=== PATIENT | female | born 1945 | race Caucasian/White ===

== ENCOUNTER 2016-09-02 18:53 | Emergency (ER) | payer BC ==
[~2016-09-02 18:53] MED LIST: CALC-393 PO; CHOL400T5 PO; COEN400C5 PO; FLUT0.15 NAE; FURO40TA3 PO; GABA-113 PO; METO-452 PO; MONT1TAB5 PO; MULT-884 PO; NSNN50 NAE; OMEG10007 PO; POTA1TAB97 PO; PXL/10 PO; SIMV10TA2 PO; TRIA1SPR4 NAE
[2016-09-02 19:00] VITALS: TEMP 36.3; Ht 172.7 cm
[2016-09-02] MEDS ORDERED: SODIUM CHLORIDE 0.9% 500ML 500 ML IV STA (20:03)
[2016-09-02] MEDS ORDERED: TOLT4CAP PO (20:41)
[2016-09-02 21:39] LABS: BASO % 0.3 %; BASO ABS # 0.02 K/uL (0-0.2); COMPLETE YES; EOS % 5.8 %; HEMATOCRIT 31.1 % (37-47); IG% 0.9 %; LYMPH % 31.5 %; LYMPH ABS # 2.17 K/uL (1.2-3.4); MEAN CELL VOLUME 92.8 fL (80-100); MEAN CORPUSCULAR HEMOGLOBIN 31.9 pg (25-34); MEAN CORPUSCULAR HGB CONC 34.4 g/dl (32-36); MEAN PLATELET VOLUME 9.3 fL (7.4-10.4); MONO % 9.9 %; NEUT % 51.6 %; PLATELET COUNT 297 K/uL (130-400); RED BLOOD COUNT 3.35 M/uL (4.2-5.4); WHITE BLOOD COUNT 6.88 K/uL (4.8-10.8)
[2016-09-02 21:55] LABS: BLOOD UREA NITROGEN 13 mg/dl (7-18); BUN/CREATININE RATIO 23.9 (10-20); CALCIUM 8.4 mg/dl (8.5-10.1); CARBON DIOXIDE 23 mmol/L (21-32); CHLORIDE 105 mmol/L (98-107); CREATININE 0.54 mg/dl (0.60-1.20); GLUCOSE 93 mg/dl (70-99); SODIUM 138 mmol/L (136-145)
[2016-09-02 22:05] VITALS: BP 157/94
--- NOTE | 2016-09-02 22:15 | DIAGNOSTIC IMAGING REPORT ---
RENAL ULTRASOUND HISTORY: deca urine output - stent in RIGHT distal ureter s/p dist ureter COMPARISON: None. FINDINGS: Right kidney: Maximum dimension 11.5 cm. Slight fullness of the collecting system. A right ureteral stent is identified. Normal corticomedullary differentiation and cortical thickness. Left kidney: No evidence for hydronephrosis. Maximum dimension 11.9 cm. Normal corticomedullary differentiation and cortical thickness. Bladder: No bladder wall thickening. The bilateral ureteral jets were identified. IMPRESSION: Mild fullness right renal collecting system and right ureter. Right ureteral stent appearing to be located appropriately within the right ureter. Normal left kidney Electronically signed by: Samir Gama M.D. 09/02/2016 10:13 PM
--- NOTE | 2016-09-02 22:46 | EMERGENCY ROOM VISIT NOTE ---
History First contact with patient: 19:09 Chief Complaint: CATHETER REPLACEMENT Stated Complaint: TEMPLE CATH NOT WORKING History of Present Illness The patient is a 70 year old female who presents to the Emergency Department by private vehicle with her for evaluation of her issue with her Temple catheter. 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 She had surgery to remove multiple tumors which was performed at [facility] one week ago. As the surgery was proceeding, they noticed a tumor near the distal ureter at the junction of the bladder. The portion of the ureter was removed and a stent was placed. The patient was at [facility] for approximately one week prior to discharge. She will has a Temple catheter in place which is to be removed next week on her follow-up visit. She has noticed some mild RIGHT-sided ureteral spasm which she reports has been next to nothing after taking her prescribed medications. She reports no fevers or chills. She denies any worsening abdominal pain, nausea, vomiting, fevers, chills, headaches , chest pain, palpitations. Today she noticed a decreased amount of urinary output and also noticed that she had urinated some around her catheter today as well. She is uncertain of her by mouth intake at this point. She is questioning if her catheter may be displaced. She denies any pain in the vaginal area. She denies any pain near the catheter site. Review of Systems A complete 10-point Review of Systems was discussed with the patient, with pertinent positives and negatives listed in the History of Present Illness. All remaining Review of Systems questions can be considered negative unless otherwise specified. Past Medical/Surgical History Medical Problems: (1) Hypertension (2) LBBB (left bundle branch block) (3) Leiomyosarcoma (4) Syncope Family History Cancer Heart disease Hypertension Social History Smoking Status: Never Smoker Smokeless Tobacco Use: No Marital Status: Housing Status: lives with significant other Current/Historical Medications Scheduled Calcium Carbonate (Calcium), 1 TAB PO QAM Cholecalciferol (Vitamin D), 1 TAB PO QAM Coenzyme Q10 (Ubidecarenone) (Coq10), 1 CAP PO QAM Fish Oil ([place]-3), 1 CAP PO QAM Furosemide (Lasix), 60 MG PO QAM Gabapentin (Neurontin), 300 MG PO BID Metoprolol Succinate (Toprol Xl), 50 MG PO QPM Mometasone Furoate (Nasal) (Nasonex), 1 SPRAY JELENA DAILY Multiple Vitamin (Multi Vitamin Daily), 1 TAB PO QAM Paroxetine (Paroxetine HCl), 10 MG PO QPM Potassium Chloride (K-Tab), 30 MEQ PO QAM Simvastatin (Zocor), 10 MG PO QPM Tolterodine Tartrate (Detrol La), 4 MG PO DAILY Scheduled PRN Fluticasone Propionate (Nasal) (Flonase Allergy Relief), 1 SPRAY JELENA DAILY PRN for Nasal Congestion Triamcinolone Acetonide (Nasal (Nasacort Allergy 24Hr), 1 DOSE JELENA DAILY PRN for PRN Allergies Coded Allergies: [place] (Verified Allergy, Intermediate, HIVES, 09/02/16) Poison Zoey Extract/Poison [place] Extra (Verified Allergy, Intermediate, HIVES , 09/02/16) Sulfa Antibiotics (Verified Allergy, Intermediate, HIVES, 09/02/16) Milk (Verified Adverse Reaction, Mild, GI UPSET, 09/02/16) Physical Exam Vital Signs Date Time Temp Pulse Resp B/P Pulse Ox O2 Delivery O2 Flow Rate FiO2 09/02/16 22:52 74 18 97 Room Air 09/02/16 22:05 88 14 157/94 98 Room Air 09/02/16 19:00 36.3 104 17 145/77 99 Room Air Pain Rating (0-10): 0 Physical Exam VITAL SIGNS - Vital signs and nursing notes were reviewed. GENERAL - 70-year-old female appearing her stated age who is in no acute distress. Communicates well with provider and answers questions appropriately. LUNGS - Chest wall symmetric without accessory muscle use, intercostals retractions, or central cyanosis. Normal vesicular breath sounds CTA B/L. No wheezes, rales, or rhonchi appreciated. CARDIAC - RRR with S1/S2. No murmur, rubs, or gallops appreciated. ABDOMEN - Abdominal contour obese and without pulsations or visible masses. Negative [place]'s or Lara Chavarria's Signs. Well-healing surgical incision site appreciated midline BS normoactive all four quadrants. No tenderness to palpation appreciated throughout. No guarding. No Rebound Tenderness. No palpable masses, hepatosplenomegaly, or ascites noted. PSYCH - A&Ox3 and cooperates fully with examiner. Pt is very pleasant and interacts well with examiner. Medical Decision & Procedures ER Provider Diagnostic Interpretation: Radiological imaging and reports were reviewed by myself. Radiologist's Interpretation as follows: RENAL ULTRASOUND HISTORY: deca urine output - stent in RIGHT distal ureter s/p dist ureter COMPARISON: None. FINDINGS: Right kidney: Maximum dimension 11.5 cm. Slight fullness of the collecting system. A right ureteral stent is identified. Normal corticomedullary differentiation and cortical thickness. Left kidney: No evidence for hydronephrosis. Maximum dimension 11.9 cm. Normal corticomedullary differentiation and cortical thickness. Bladder: No bladder wall thickening. The bilateral ureteral jets were identified. IMPRESSION: Mild fullness right renal collecting system and right ureter. Right ureteral stent appearing to be located appropriately within the right ureter. Normal left kidney Laboratory Results 09/02/16 21:23 Red Blood Count 3.35, Mean Corpuscular Volume 92.8, Mean Corpuscular Hemoglobin 31.9, Mean Corpuscular Hemoglobin Concent 34.4, Mean Platelet Volume 9.3, Neutrophils (%) (Auto) 51.6, Lymphocytes (%) (Auto) 31.5, Monocytes (%) (Auto) 9.9, Eosinophils (%) (Auto) 5.8, Basophils (%) (Auto) 0.3, Neutrophils # (Auto) 3.55, Lymphocytes # (Auto) 2.17, Monocytes # (Auto) 0.68, Eosinophils # (Auto) 0.40, Basophils # (Auto) 0.02 09/02/16 21:23 Test 09/02/16 21:23 White Blood Count 6.88 K/uL (4.8-10.8) Red Blood Count 3.35 M/uL (4.2-5.4) Hemoglobin 10.7 g/dL (12.0-16.0) Hematocrit 31.1 % (37-47) Mean Corpuscular Volume 92.8 fL (80-100) Mean Corpuscular Hemoglobin 31.9 pg (25-34) Mean Corpuscular Hemoglobin Concent 34.4 g/dl (32-36) Platelet Count 297 K/uL (130-400) Mean Platelet Volume 9.3 fL (7.4-10.4) Neutrophils (%) (Auto) 51.6 % Lymphocytes (%) (Auto) 31.5 % Monocytes (%) (Auto) 9.9 % Eosinophils (%) (Auto) 5.8 % Basophils (%) (Auto) 0.3 % Neutrophils # (Auto) 3.55 K/uL (1.4-6.5) Lymphocytes # (Auto) 2.17 K/uL (1.2-3.4) Monocytes # (Auto) 0.68 K/uL (0.11-0.59) Eosinophils # (Auto) 0.40 K/uL (0-0.5) Basophils # (Auto) 0.02 K/uL (0-0.2) RDW Standard Deviation 44.4 fL (36.4-46.3) RDW Coefficient of Variation 13.3 % (11.5-14.5) Immature Granulocyte % (Auto) 0.9 % Immature Granulocyte # (Auto) 0.06 K/uL (0.00-0.02) Anion Gap 10.0 mmol/L (3-11) Estimated GFR () 109.3 Estimated GFR (Non- 94.3 BUN/Creatinine Ratio 23.9 (10-20) Calcium Level 8.4 mg/dl (8.5-10.1) ED Course Patient was seen and evaluated by myself. On initial presentation, nursing staff did deflate the catheter balloon and insert slightly. There is no urinary output. Her bladder scan demonstrated no urine. I had a lengthy discussion with them discussing further intervention. Labs were drawn, they were unable to obtain an IV state. retroperitoneal ultrasound was obtained. Laboratory results demonstrate no acute leukocytosis, significant anemia, or bandemia. The patient has no significant electrolyte abnormalities. Creatinine is well within normal limits. Ultrasound results above. Laboratory results and imaging studies were reviewed with the patient who acknowledges understanding. Case was discussed with my attending physician who independently evaluated the patient and agrees with the diagnostic approach and treatment plan. The patient had a moderate amount of urine output while in the emergency department when she began to drink. Her urine is clear and there are no clots noted. Patient will be followed closely with home health. She will return for any changing or worsening symptoms. Patient discharged home in good condition. Medical Decision Given the patient's presentation and stated complaint, I did elect to perform the above-mentioned workup. The patient presents today with urinary issues with her catheter. She has no fever. She has no leukocytosis. Her exam is otherwise unremarkable. The patient clinically looks very well after having her surgery. Initially, I did proceed conservatively and attempt to change position of the catheter and see if this facilitated urine output. Interestingly, she had no urine in her bladder. This is likely the major culprit of the patient's symptoms. Regardless, the patient recently went through major surgery and because of this, labs were obtained and ultrasound was obtained of the retroperitoneal area. She has no leukocytosis concerning of significant infection. She is mildly anemic, but this is to be expected postoperatively. Her imaging studies are not impressive. She had a moderate amount of clear urine output in the emergency department after she began to drink. The patient wishes no further intervention at this time. She will follow closely with her surgeons as discussed. She will certainly return in the event of any changing or worsening symptoms. Patient discharged home afebrile and in good condition. In the evaluation and treatment of this patient, the following differential diagnoses were considered: Kidney Stone, STI, Bladder Cancer, Amongst Others. Impression Primary Impression: Decreased urine output Additional Impression: Complication of catheter Departure Information Dispostion Home / Self-Care Condition GOOD Referrals RV. Arias MD (PCP) Patient Instructions A Signature Page, [facility] Additional Instructions Continue to follow with your specialists from today's visit. Return for any changing or worsening symptoms.
[2016-09-02 22:52] VITALS: PULSE 74; O2SAT 97
--- NOTE | 2016-09-03 00:55 | EMERGENCY ROOM VISIT NOTE ---
ED Visit Note First contact with patient: 19:09 I have personally evaluated this patient examined her and reviewed the pertinent labs and data. I have discussed the case with Nikhil Polanco, the physician catering assistant and agree with the plan. Please refer to the PA note This patient had recent ureter surgery at [facility]. I was concerned about decreased urinary output her catheter is now working fine. She did receive some IV fluids.. She has normal kidney function she has nothing to suggest infection. Her incisions are healing well .her ultrasound was unremarkable .she feels good and would like to go home. I think that it is reasonable to discharge her at this point.: She was encouraged to return if fever or chills, worsening of symptoms or new problems or concerns.
== END 2016-09-02 22:52 | disposition home or self-care (01) ==
LOC: C.EDB 18:54 → C.EDD 22:52
DX: Z46.6 Encounter for fitting and adjustment of urinary device (principal); Z43.6 Encounter for attention to other artificial openings of urinary tract; R39.198 Other difficulties with micturition; I10 Essential (primary) hypertension; Z79.899 Other long term (current) drug therapy

== ENCOUNTER → 2016-10-16 | Outpatient (CLI) | payer BC ==
[~2016-10-16] MED LIST changes: -METO-452 PO; +METO1TAB66 PO; -MONT1TAB5 PO; +TOLT4CAP PO
[2016-10-16 10:01] LABS: URINE APPEARANCE CLEAR (CLEAR); URINE BILIRUBIN NEG (NEG); URINE COLOR YELLOW; URINE EPITHELIAL CELL AUTO 20-30 /lpf (0-5); URINE NITRITE NEG (NEG); URINE SPECIFIC GRAVITY 1.004 (1.000-1.030); UROBILINOGEN NEG (NEG)
[2016-10-16 10:04] LABS: ALT/SGPT 13 U/L (12-78); BLOOD UREA NITROGEN 9 mg/dl (7-18); BUN/CREATININE RATIO 16.8 (10-20); CALCIUM 8.6 mg/dl (8.5-10.1); CARBON DIOXIDE 25 mmol/L (21-32); CHLORIDE 100 mmol/L (98-107); CHOLESTEROL 182 mg/dl (0-200); CREATININE 0.53 mg/dl (0.60-1.20); GLUCOSE 89 mg/dl (70-99); MANUAL MICROSCOPIC REQUIRED? NO; REVIEW REQ? NO; SODIUM 134 mmol/L (136-145); TRIGLYCERIDES 72 mg/dl (0-150); VERY LOW DENSITY LIPOPROT CALC 14 mg/dl
[2016-10-16 10:06] LABS: ALB/GLOB RATIO 0.9 (0.9-2); ALKALINE PHOSPHATASE 66 U/L (45-117); AST/SGOT 15 U/L (15-37); CHOLESTEROL/HDL RATIO 2.3; HDL CHOLESTEROL 78 mg/dl; LDL CHOLESTEROL CALCULATED 90 mg/dl
--- NOTE | 2016-10-20 08:43 | CODING QUERY MEDICAL NECESSITY ---
SUPPORTING DIAGNOSIS NEEDED Dr. Alberts, A supporting diagnosis is required for the test/procedure performed on this patient in order for us to be reimbursed by the patient's insurance. Please provide a supporting diagnosis for the following test/procedure listed below next to the test name along with your signature. *If there is no additional diagnosis for this patient that would support the following test/procedure please document that below next to the test/procedure. Test(s)/Procedure(s) that require a supporting diagnosis: * ([id number]) B12 VITAMIN LEVEL DIAGNOSIS: DATE OF SERVICE: 10/16/16 Provider Signature: Date: Thank you Reji Dai [facility] Information Management Once completed, please kindly fax back to [phone] For questions please call [phone]
== END | disposition home or self-care (01) ==
LOC: C.LAB1850 07:32
PROVIDERS: ATTEND Internal Medicine
DX: E78.00 Pure hypercholesterolemia, unspecified (principal); E55.9 Vitamin D deficiency, unspecified; M79.89 Other specified soft tissue disorders; G62.0 Drug-induced polyneuropathy; N39.0 Urinary tract infection, site not specified; M85.80 Other specified disorders of bone density and structure, unspecified site; R00.0 Tachycardia, unspecified; T45.1X5A Adverse effect of antineoplastic and immunosuppressive drugs, initial encounter

== ENCOUNTER → 2016-10-23 | Outpatient (CLI) | payer BC ==
[2016-10-23 15:41] LABS: URINE APPEARANCE CLOUDY (CLEAR); URINE BILIRUBIN NEG (NEG); URINE COLOR YELLOW; URINE EPITHELIAL CELL AUTO 0-5 /lpf (0-5); URINE NITRITE NEG (NEG); URINE PH 6.5 (4.5-7.5); URINE SPECIFIC GRAVITY 1.008 (1.000-1.030); UROBILINOGEN NEG (NEG)
[2016-10-23 15:45] LABS: MANUAL MICROSCOPIC REQUIRED? NO; REVIEW REQ? NO
== END | disposition home or self-care (01) ==
LOC: C.LAB1850 14:39
PROVIDERS: ATTEND Internal Medicine
DX: N39.0 Urinary tract infection, site not specified (principal)

== ENCOUNTER → 2017-02-04 | Outpatient (CLI) | payer BC ==
[~2017-02-04] MED LIST changes: +METO-452 PO; -METO1TAB66 PO
== END | disposition home or self-care (01) ==
LOC: C.LABSPEC 17:49
PROVIDERS: ATTEND Physician Assistant
DX: N89.8 Other specified noninflammatory disorders of vagina (principal)

== ENCOUNTER → 2017-04-19 | Outpatient (CLI) | payer BC ==
[~2017-04-19] MED LIST changes: -METO-452 PO; +METO1TAB66 PO
--- NOTE | 2017-04-20 07:57 | MAMMOGRAPHY REPORT ---
BILATERAL DIGITAL SCREENING MAMMOGRAM WITH CAD: 04/19/2017 CLINICAL HISTORY: Routine screening. Patient has no complaints. TECHNIQUE: Bilateral CC and MLO views were obtained. Current study was also evaluated with a Compute r Aided Detection (CAD) system. COMPARISON: Comparison is made to exams dated: 04/07/2016 mammogram, 04/02/2014 mammogram, 05/06/2010 mamm ogram - [facility], 05/02/2009, 04/27/2008, and 04/26/2007. BREAST COMPOSITION: The tissue of both breasts is almost entirely fatty. FINDINGS: No suspicious mass, architectural distortion or cluster of microcalcifications is seen. IMPRESSION: ACR BI-RADS CATEGORY 1: NEGATIVE There is no mammographic evidence of malignancy. A 1 year screening mammogram is recommended. The pa tient will receive written notification of the results. Approximately 10% of breast cancers are not detected with mammography. A negative mammographic report should not delay biopsy if a clinically suggestive mass is present. Daiana Snow M.D. ay/:04/19/2017 15:23:54 Vacuum Tester Cans: Robina Suarez RT(R)(M)(BD), [facility] letter sent: Normal 1/2 BI-RADS Code: ACR BI-RADS Category 1: Negative
== END | disposition home or self-care (01) ==
LOC: C.MAMM 14:58
PROVIDERS: ATTEND Internal Medicine
DX: Z12.31 Encounter for screening mammogram for malignant neoplasm of breast (principal)

== ENCOUNTER → 2017-07-26 | Outpatient (CLI) | payer BC ==
[~2017-07-26] MED LIST changes: +METO-452 PO; -METO1TAB66 PO
--- NOTE | 2017-07-26 16:21 | DIAGNOSTIC IMAGING REPORT ---
LUMBAR SPINE 5 VIEWS HISTORY: LOW BACK Pain, lumbar SPINAL STENOSIS COMPARISON: PET CT 08/10/2016. FINDINGS: There is a new moderate compression fracture at L5 which demonstrates 50% loss of height. This demonstrates slight increased sclerosis and favors a subacute to chronic fracture. The remaining vertebral body helps are maintained. Mild disc space narrowing at L3-L4 and L4-L5. Mild facet degenerative changes seen within the lumbar spine. The sacrum appears intact. No subluxation. Mild dextroscoliosis. Surgical clips within the pelvis. IMPRESSION: 1. A new moderate compression fracture at L5 which demonstrates 50% loss of height. No associated retropulsion. This is to the age indeterminate but favors a subacute to chronic fracture. Given the patient's history of malignancy a pathologic fracture cannot be excluded. 2. Mild degenerative changes within the lumbar spine. 3. Mild dextroscoliosis. Electronically signed by: Armani Mcrae M.D. 07/26/2017 4:19 PM Dictated Date/Time: 07/26/2017 4:16 PM
== END | disposition home or self-care (01) ==
LOC: C.RAD1850 15:22
PROVIDERS: ATTEND Internal Medicine
DX: M54.5 Low back pain (principal); M48.061 Spinal stenosis, lumbar region without neurogenic claudication

== ENCOUNTER 2018-01-04 14:25 | Emergency (ER) | payer BC ==
[~2018-01-04] VITALS: Ht 175.3 cm; Wt 81.6 kg
[2018-01-04 14:30] VITALS: TEMP 36.8; Ht 175.3 cm; Wt 81.6 kg
[2018-01-04] MEDS ORDERED: BUPIVACAINE 0.5 % 5 MG/1 ML MPF 30ML VIAL INFIL STA (15:08)
[2018-01-04] MEDS ORDERED: LIDOCAINE 1% BUFFERED INJ 5 ML VIAL INFIL STA (15:08)
[2018-01-04] MEDS ORDERED: DIPHTHERIA/TETANUS/PERTUSSIS 0.5 ML SYR/VIAL IM. ONE (15:15)
--- NOTE | 2018-01-04 15:51 | DIAGNOSTIC IMAGING REPORT ---
L FINGER(S) MIN 2 VIEWS ROUTINE HISTORY: 72 years-old Female left index finger laceration acute pain of the left third finger with laceration COMPARISON: None available TECHNIQUE: 3 views of the left third finger FINDINGS: The bones appear mildly demineralized. Mild to moderate degenerative changes are noted throughout the metacarpophalangeal and interphalangeal joints. No acute fracture, dislocation or opaque foreign body. Soft tissue defect of the distal third digit suggest laceration with mild soft tissue swelling. IMPRESSION: Laceration of the distal third digit without acute fracture or opaque foreign body. The above report was generated using voice recognition software. It may contain grammatical, syntax or spelling errors. Electronically signed by: Paul Sim M.D. 01/04/2018 3:50 PM Dictated Date/Time: 01/04/2018 3:48 PM
--- NOTE | 2018-01-04 16:15 | EMERGENCY ROOM VISIT NOTE ---
ED Visit Note First contact with patient: 14:43 CHIEF COMPLAINT: Finger laceration HISTORY OF PRESENT ILLNESS: This 72-year-old female patient presents to the emergency department, ambulatory, approximately 45 minutes after cutting the left ring finger while using pruning linda to trim her lilacs. The patient sliced through the finger with the linda, causing a partial nail laceration as well. The bleeding has not stopped. Denies weakness or numbness of the finger. The patient has full range of motion of the fingers. The patient rates the pain as sharp and 6/10. The patient denies any other injuries. The patient's tetanus shot is not up to date. REVIEW OF SYSTEMS: A 6 system review of systems was completed with positives and pertinent negatives listed in the HPI. ALLERGIES: Sulfa MEDICATIONS: Nasonex, gabapentin, Toprol, Zocor, vitamin D, fish oil, calcium, Flonase, Lotrisone, amitriptyline, singulair PMH: Cancer, heart disease SOCIAL HISTORY: Patient lives locally with family. She denies drug, alcohol or tobacco use. PHYSICAL EXAM: Vital Signs: Reviewed Nurse's notes, vital signs stable. GENERAL : This is a 72-year-old female, in no acute distress, well developed, well nourished. SKIN: There is a 2.2 cm long laceration on the anterior aspect of the left ring finger which extends around the lateral aspect of the finger and through the distal aspects of the fingernail. The edges gape apart with traction. There is no foreign material in the wound and it looks clean. There is significant bleeding. No deep structures such as tendons, bones, or significant blood vessels are seen in the base of the wound. Extension and flexion of the finger is full and strong. Full range of motion of the wrist and other fingers. Capillary refill less than 2 seconds. Normal sensation to light and sharp touch. RADIOLOGY: L FINGER(S) MIN 2 VIEWS ROUTINE HISTORY: 72 years-old Female left index finger laceration acute pain of the left third finger with laceration COMPARISON: None available TECHNIQUE: 3 views of the left third finger FINDINGS: The bones appear mildly demineralized. Mild to moderate degenerative changes are noted throughout the metacarpophalangeal and interphalangeal joints. No acute fracture, dislocation or opaque foreign body. Soft tissue defect of the distal third digit suggest laceration with mild soft tissue swelling. IMPRESSION: Laceration of the distal third digit without acute fracture or opaque foreign body. The above report was generated using voice recognition software. It may contain grammatical, syntax or spelling errors. Electronically signed by: Paul Sim M.D. 01/04/2018 3:50 PM Dictated Date/Time: 01/04/2018 3:48 PM EMERGENCY DEPARTMENT COURSE: I examined the patient. X-ray performed to rule out fracture and was reviewed by myself and radiologist as above. Verbal consent was obtained to perform the procedure. The procedure was performed under my direct supervision and with the agreement of the patient, by the physician mechanic's assistant student. Using sterile technique the wound was cleansed with Betadine. 6 ml of 1% buffered lidocaine next with 0.5% bupivacaine was used to perform a digital block to anesthetize the patient. The area was sterilely draped. Once the patient was anesthetized, the wound was copiously irrigated under pressure with sterile saline. The wound was explored and there were no deep structures injured. The injured portion of the fingernail was removed to expose the nailbed laceration. The laceration was repaired using 6 simple interrupted 5-0 nylon sutures and 1 simple interrupted 5-0 Vicryl suture. The patient tolerated the procedure well. Hemostasis was achieved. The area was cleaned with sterile saline and dressed with bacitracin ointment and bandage. The patient was given a tetanus booster. She did initially request antibiotics for infection prophylaxis due to her history of cancer, however, after speaking with Dr. Mack she decided against antibiotics. The patient was discharged home in good condition. I attest that I have personally reviewed the patient's current medication list. Blood Pressure Screening: Patient was found to have a slightly elevated blood pressure due to circumstances. I do not believe that the patient requires hypertension monitoring. Differential diagnosis includes laceration, contusion, fracture, sprain/strain, tendon or ligament injury, neurovascular compromise, foreign body, assault, and others DIAGNOSIS: Finger laceration through the nail The chart was completed utilizing [employer] voice recognition software. Grammatical errors, random word insertions, pronoun errors, and incomplete sentences are an occasional consequence of this system due to software limitations, ambient noise, and hardware issues. Any formal questions or concerns about the content, text, or information contained within the body of this dictation should be directly addressed to the provider for clarification. Problem List Medical Problems: (1) Hypertension Status: Chronic (2) LBBB (left bundle branch block) Status: Chronic (3) Leiomyosarcoma Status: Chronic Current/Historical Medications Scheduled Calcium Carbonate (Calcium), 1 TAB PO QAM Cholecalciferol (Vitamin D), 1 TAB PO QAM Coenzyme Q10 (Ubidecarenone) (Coq10), 1 CAP PO QAM Fish Oil ([place]-3), 1 CAP PO QAM Furosemide (Lasix), 60 MG PO QAM Gabapentin (Neurontin), 300 MG PO BID Metoprolol Succinate (Toprol Xl), 50 MG PO QPM Mometasone Furoate (Nasal) (Nasonex), 1 SPRAY JELENA DAILY Multiple Vitamin (Multi Vitamin Daily), 1 TAB PO QAM Paroxetine (Paroxetine HCl), 10 MG PO QPM Potassium Chloride (K-Tab), 30 MEQ PO QAM Simvastatin (Zocor), 10 MG PO QPM Tolterodine Tartrate (Detrol La), 4 MG PO DAILY Scheduled PRN Fluticasone Propionate (Nasal) (Flonase Allergy Relief), 1 SPRAY JELENA DAILY PRN for Nasal Congestion Oxycodone Ir (Roxicodone Ir), 1 TAB PO Q4H PRN for Pain Triamcinolone Acetonide (Nasal (Nasacort Allergy 24Hr), 1 DOSE JELENA DAILY PRN for PRN Allergies Coded Allergies: León (Verified Allergy, Intermediate, HIVES, 09/02/16) Poison Zoey Extract/Poison Muir Extra (Verified Allergy, Intermediate, HIVES , 09/02/16) Sulfa Antibiotics (Verified Allergy, Intermediate, HIVES, 09/02/16) Milk (Verified Adverse Reaction, Mild, GI UPSET, 09/02/16) Vital Signs Date Time Temp Pulse Resp B/P (MAP) Pulse Ox O2 Delivery O2 Flow Rate FiO2 01/04/18 16:38 79 16 165/95 100 01/04/18 14:30 36.8 100 18 158/97 96 Room Air Medications Administered Medications (Trade) Dose Ordered Sig/Radha Route Start Time Stop Time Status Last Admin Dose Admin Diphtheria/ Pertussis/Tetanus Vacc (Adacel Inj) 0.5 ml ONCE ONCE IM. 01/04/18 15:15 01/04/18 15:16 DC 01/04/18 15:26 0.5 ML Departure Information Impression Primary Impression: Laceration of finger Additional Impression: Need for tetanus booster Dispostion Home / Self-Care Condition GOOD Prescriptions Oxycodone Ir (Roxicodone Ir) 5 Mg Tab 1 TAB PO Q4H Y for Pain, #15 TAB For Initial Treatment Prov: Shayy Castillo PA-C 01/04/18 Referrals RV. Arias MD (PCP) Patient Instructions ED Immunization Tetanus and FU, ED Laceration Hand, [facility] Additional Instructions You have received 7 total sutures on your left ring finger. These sutures are NOT dissolvable and WILL need to be removed by a health care provider in 10-12 days. You can return to the Emergency Department or contact your Primary Care Provider to have the sutures removed. One suture is dissolvable and will not need to be removed. This is over the nailbed. Proper wound care is essential for adequate wound healing and infection prevention. You can shower and clean the wound with soap and water. Do not scour over the wound, pat dry with a towel. Do not submerse the wound (i.e. bathe or dish wash) until the sutures have been removed. You can use an antibiotic ointment with a dressing over the wound for the next 3-4 days. After this time you may leave the wound dry and open to the air. If crust develops over the wound you can use a Q-tip to apply a 1:1 peroxide:water solution to clean the wound. Look for signs of infection of the wound including: increased pain, swelling, foul discharge, streaking, or increased temperature. If any of these are noticed you should return to the Emergency Department for further assessment and treatment. As with any laceration you may have received nerve damage to the surrounding tissues. This damage may or may not be permanent. You should keep the area covered with sunscreen for the first 6 months to 1 year when at risk for exposure to help minimize scarring. You can also use scar reducing creams or Vitamin E oil to help minimize scarring. For pain control, you can use the following [id number] medicines (if >12 yo): Ibuprofen(Motrin, Advil) may be used for fever or pain. Use 600mg every six hours as needed. Take with food. Avoid using more than 2400mg in a 24 hour period. Do not use 2400mg per day for more than three consecutive days without physician direction. Prolonged inappropriate use can lead to stomach upset or ulcers. (AND/OR) Acetaminophen(Tylenol) may be used for fever or pain. Use 1000mg every six hours as needed. Avoid using more than 3000mg in a 24 hour period. Return to the emergency department if your symptoms worsen despite treatment course outlined above. Problem Qualifiers Primary Impression: Laceration of finger Encounter type: initial encounter Finger: ring finger Damage to nail status : with damage Foreign body presence: without foreign body Laterality: left Qualified Codes: S61.315A - Laceration without foreign body of left ring finger with damage to nail, initial encounter
[2018-01-04] MEDS ORDERED: OXYC1TAB3 PO (16:30)
--- NOTE | 2018-01-04 16:34 | EMERGENCY ROOM VISIT NOTE ---
ED Visit Note First contact with patient: 14:43 Staff note: I have reviewed the Patients chart and have discussed this case with my PA. I generally agree with the ED note and findings.
[2018-01-04 16:38] VITALS: BP 165/95; PULSE 79; O2SAT 100
== END 2018-01-04 16:51 | disposition home or self-care (01) ==
LOC: C.EDB 14:27 → C.EDD 16:51
DX: S61.315A Laceration without foreign body of left ring finger with damage to nail, initial encounter (principal); W45.8XXA Other foreign body or object entering through skin, initial encounter; Y93.H2 Activity, gardening and landscaping; Z23 Encounter for immunization; Z85.89 Personal history of malignant neoplasm of other organs and systems; I10 Essential (primary) hypertension; Z91.018 Allergy to other foods; Z91.048 Other nonmedicinal substance allergy status; Z88.2 Allergy status to sulfonamides; Z91.011 Allergy to milk products

== ENCOUNTER → 2018-04-21 | Outpatient (CLI) | payer BC ==
[~2018-04-21] MED LIST changes: +OXYC-90 PO
--- NOTE | 2018-04-21 15:07 | MAMMOGRAPHY REPORT ---
BILATERAL DIGITAL SCREENING MAMMOGRAM TOMOSYNTHESIS WITH CAD: 04/21/2018 CLINICAL HISTORY: Routine screening. Patient has no complaints. TECHNIQUE: Breast tomosynthesis in addition to standard 2D mammography was performed. Current study w as also evaluated with a Computer Aided Detection (CAD) system. COMPARISON: Comparison is made to exams dated: 04/19/2017 mammogram, 04/07/2016 mammogram, 04/02/2014 amber mogram, 05/06/2010 mammogram - [facility], 05/02/2009, and 05/02/2008. BREAST COMPOSITION: The tissue of both breasts is almost entirely fatty. FINDINGS: No suspicious masses, calcifications, or areas of architectural distortion are noted in either breast . There has been no significant interval change compared to prior exams. IMPRESSION: ACR BI-RADS CATEGORY 1: NEGATIVE There is no mammographic evidence of malignancy. A 1 year screening mammogram is recommended.( 019) The patient will receive written notification of the results. Some breast cancers are not detected with mammography. A negative mammographic report should not jewel y biopsy if a clinically suggestive mass is present. Radha Bardales M.D. ah/:04/21/2018 12:05:29 Conservation Enforcement Officer: RT Jose(Durga)(M)(BD), [facility] letter sent: Normal 1/2 BI-RADS Code: ACR BI-RADS Category 1: Negative
== END | disposition home or self-care (01) ==
LOC: C.MAMM 10:51
PROVIDERS: ATTEND Internal Medicine
DX: Z12.31 Encounter for screening mammogram for malignant neoplasm of breast (principal)

== ENCOUNTER 2020-08-26 14:21 | Inpatient (IN) ==
[2020-08-26] MEDS ORDERED: OXYMETAZOLINE 0.05% 30 ML BTL NAE ONE (15:46)
[2020-08-26] MEDS ORDERED: OXYMETAZOLINE 0.05% 30 ML BTL ONE (15:48)
[2020-08-26] MEDS ORDERED: SODIUM CHLORIDE 0.9% 1000ML 500 ML IV ONE ×2 (16:02→17:04)
[2020-08-26 16:17] LABS: Hemoglobin 9.8 g/dL (12.0-16.0); Mean Corpuscular Hemoglobin 30.3 pg (25-34); Mean Corpuscular Hgb Conc 33.8 g/dL (32-36); Mean Corpuscular Volume 89.8 fL (80-100); RDW Coefficient of Variation 19.4 % (11.5-14.5); RDW Standard Deviation 62.9 fL (36.4-46.3); Red Blood Count 3.23 M/uL (4.2-5.4); White Blood Count 2.62 K/uL (4.8-10.8)
--- NOTE | 2020-08-26 16:22 | Emergency Department Note ---
Impression & Plan Hypoxia, Epistaxis, CHF (congestive heart failure), SOB (shortness of breath), Thrombocytopenia ED Provider Note NAME: MARIA DE JESUS DUTTA AGE: 74 SEX: F : 1945 ARRIVES VIA: Walk-In INFORMANT: [Patient] ED PROVIDER(S): [Ciro Chris MD] CHIEF COMPLAINT: Epistaxis HISTORY OF PRESENT ILLNESS: The patient is a 74-year-old female who presents with 24 hours of right-sided epistaxis. The bleeding has been intermittent and she has been having a hard time controlling the bleeding even with Afrin. The patient is on chemotherapy for sarcoma. She states that the chemotherapeutic agent does cause low platelets and she has, in the past, received platelet transfusions. The patient states that a week ago or so she had a little bit of bleeding from her nose but it stopped spontaneously. This time, she cannot get it to stop. She has had some blood down the back of her throat. She has been weak but she states this is from the chemo. She is not on any blood thinners. There have been no Covid exposures, no cough or congestion. No increased shortness of breath. No vomiting or diarrhea. REVIEW OF SYSTEMS: See HPI for pertinent positives and negatives. A total of ten systems were reviewed and were otherwise negative. PMHx/PSHx: See Below SOCIAL HISTORY: See Below. PHYSICAL EXAM: GENERAL: Patient is in no acute distress. HEENT: The patient has a clot in her right naris. There is some older blood in the left nare from previous bleeding. There is some older clots adherent to the back of the throat but no active bleeding. Mucous members are moist. NECK: No stridor, no adenopathy, no meningismus, trachea is midline. LUNGS: Clear to auscultation bilaterally, no wheeze, no rhonchi, breath sounds equal. HEART: 2/6 systolic murmur, irregular rhythm, mildly tachycardic. ABDOMEN: Soft, nontender, bowel sounds positive, no hernias, no peritonitis. EXTREMITIES: No cyanosis or edema, full range of motion of all the joints without pain or difficulty, no signs for acute trauma. NEUROLOGIC: Oriented x 3, no acute motor or sensory deficits, no focal weakness. SKIN: No rash, no jaundice, no diaphoresis. DIFFERENTIAL DIAGNOSIS: Reactive airway disease, pneumonia, pneumothorax, COPD, CHF, MD, dysrhythmia, coagulopathy, anemia, thrombocytopenia, infections, cardiac ischemia, pulmonary embolism, musculoskeletal, gastrointestinal, as well as other pathologies. EMERGENCY DEPARTMENT COURSE/PROCEDURES: ECG: EKG was tachycardia. The ECG shows a poor baseline but I suspect there is a sinus tachycardia with PACs. There is an incomplete left bundle branch block. There is mild ST elevation in the anterior leads consistent with the left bundle. The QTc is 497. There is a potential old inferior infarct. There is a potential old anterior infarct. Compared to an ECG from 22 April 2020, the potential old inferior infarct is now noted. Repeat ECG: Indication was tachycardia. This ECG shows a sinus tachycardia with PACs. There is an incomplete left bundle branch block. 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 No PVCs. The QTc is 510. There is some subtle anterior ST elevation consistent with the left bundle branch block. This EKG looks similar to the previous ECG from earlier today. Repeat EKG: Indication was shortness of breath. The patient appears to have sinus tachycardia with a rate of 120. There is ST elevation across the anterior leads. There was some T wave inversion and ST depression laterally. The QTc was 497. There was what appears to be an old anterior and old inferior infarct. Compared to the ECG from earlier today, the ST elevation was more prominent and concerning for acute MD. Continuous Cardiac Monitoring: An order was placed for continuous cardiac monitoring. The monitor shows a rate of 107 with sinus tachycardia. Critical Care Note: I have personally spent 58 minutes of critical care time in the direct management of this patient. This includes bedside care, interpretation of diagnostic studies, and testing, discussion with consultants, patient, and family members, and other required patient management activities. This 58 minutes is in excess of all separately billable procedures. MEDICAL DECISION MAKING: There is a lower white count and hemoglobin, these values are both baseline for the patient. Platelet count is low at 73, this is a lower than baseline value for her. No coagulopathy. Potassium slightly low at 3.4, no kidney failure. No worrisome liver enzyme elevation. Covid testing returned negative. Chest x- ray shows some chronic change from her underlying disease. She appeared to be in pulmonary edema. There was no pneumothorax. ECG initially was difficult to interpret because of a poor baseline but I suspect there was a sinus tachycardia. Repeat EKG shows a sinus tachycardia more clearly. The third EKG performed when she worsened shows increased ST elevation in the anterior leads with some lateral depression, the EKG was concerning for an acute MD. Initial troponin testing returned negative. The patient presented with epistaxis. She was doing well except for a mild tachycardia. She had packing performed here by ENT. Shortly after the packing was placed, she suddenly became short of breath and was noted to be hypoxic. I was called emergently to the room. Patient was tachycardic, quite short of breath and hypoxic. On my exam, I was concerned for flash pulmonary edema. An ECG was done emergently with her complaints, this suggested the possibility of an anterior acute MD. Chest x-ray done emergently showed CHF. The patient was aggressively managed. She was given Nitropaste, 2 inches. She was given 40 mg of IV Lasix, a total of 10 mg of IV Lopressor, she was given O2 supplementation. She eventually was given a dose of IV potassium to supplement the slightly lower potassium value. Patient was given IV Zofran for some n ausea. She was given a DuoNeb. I did speak with the supervisor electric automation tester for heart alert. He saw the patient at bedside. As the patient was improving medically, the decision was made not to take the patient emergently to the cardiac catheterization lab. I did speak with the patient and her . I spoke with the over the phone. The patient understands the findings and concerns. She is going to be hospitalized. In short, the patient presented for epistaxis. She was having nasal packing performed and suddenly became short of breath and became hypoxic. She developed flash pulmonary edema, she will require an admission. She is improving with our treatment. I spoke with the on-call hospitalist, I did speak with case management. Past Med/Surg History Medical History Cancer Herpes zoster Hypercholesteremia Left-sided chest wall pain Lumbar spinal stenosis Lung nodule Peripheral neuropathy due to chemotherapy Syncope Surgical History (Updated 07/17/20 @ 08:40 by Shannan Barnes RN) H/O colonoscopy H/O dilation and curettage H/O hysterectomy with oophorectomy H/O oophorectomy H/O oral surgery H/O: hysterectomy History of back surgery History of cataract surgery History of shoulder surgery History of sinus surgery Hx of appendectomy Hx of tonsillectomy Status post cryoablation Buttocks Family History Mother Lymphoma Father Alzheimer disease Unknown Uterine cancer Grandfather (Maternal) Myocardial infarction Denies family history of Ovarian cancer Prostate cancer Breast cancer Colorectal cancer Social History Smoking Status: Never smoker Hx Alcohol Use: Yes Alcohol type: wine Hx Substance Use: Yes (medical marijuana) Hearing Ability: Use of Hearing Aid marital status: Current Living Situation: Spouse current occupational status: retired Feels Safe at Home: Yes Dental Care, Regularly: Yes Physical Activity Frequency: 1-2 Times per Week Physical Activity Frequency Comment: swimming and walking Seatbelt Use: always Sunscreen Use: Yes (sometimes) Allergies Allergies Allergy/AdvReac Type Severity Reaction Status Date / Time selina Allergy Intermediate HIVES Verified 07/17/20 09:01 Sulfa (Sulfonamide Allergy Intermediate HIVES Verified 07/17/20 09:01 Antibiotics) milk AdvReac Mild GI UPSET Verified 07/17/20 09:01 Poison Zoey Extract/Poison Allergy Intermediate HIVES Uncoded 07/17/20 09:01 [place] Extra Home Meds Home Medications Medication Instructions Recorded Confirmed calcium carbonate 600 mg calcium 600 mg PO .BID/3XW tab 06/27/18 08/26/20 (1,500 mg) tablet multivitamin 1 tab PO DAILY 06/27/18 07/17/20 omega-3 fatty acids 1,000 mg 1,000 mg PO DAILY 06/27/18 07/17/20 capsule cyclosporine 0.05 % eye drops in a 1 drops OP Q12H 06/30/18 07/17/20 dropperette denosumab 60 mg/mL subcutaneous 60 mg SQ Q6MO ml 06/14/19 08/26/20 syringe cholecalciferol (vitamin D3) 50 50 mcg PO DAILY 06/14/20 08/26/20 mcg (2,000 unit) capsule Magic Swizzle 10 ml PO Q4H PRN 07/17/20 gabapentin 400 mg PO TID 07/17/20 08/26/20 loratadine [Claritin] 10 mg PO BID 07/17/20 08/26/20 ondansetron 8 mg PO Q12H PRN 07/17/20 07/17/20 oxycodone-acetaminophen [Percocet] 1 tab PO Q6H PRN 07/17/20 07/17/20 polyethylene glycol 3350 [Miralax] 17 g PO DAILY PRN 07/17/20 07/17/20 Previous Rx's Medication Instructions Recorded sertraline 50 mg tablet 50 mg PO DAILY #90 tab 01/11/20 metoprolol succinate 50 mg 50 mg PO DAILY #90 tab 05/27/20 tablet,extended release 24 hr simvastatin 10 mg tablet 20 mg PO QPM #180 tab 05/27/20 tramadol 50 mg tablet 50 mg PO BID PRN #60 tab 06/06/20 naproxen 500 mg tablet 500 mg PO DAILY PRN #30 tab 06/24/20 mometasone 50 mcg/actuation nasal 1 spray INTRANASAL DAILY PRN #17 g 07/31/20 spray Results & Data (ED) Vital Signs Vital Signs - 24 hr 08/26/20 14:24 08/26/20 16:30 08/26/20 17:00 Temperature 37.1 C Temperature Source Oral Pulse Rate 123 H 105 H 104 H Pulse Rate [Right Finger] Pulse Rate from SpO2 Sensor 105 H 102 H Respiratory Rate 18 22 20 Respiratory Effort / Characteristics Blood Pressure 171/82 H 149/95 H 165/87 H Blood Pressure Mean 111 109 115 Pulse Oximetry 99 97 95 Oxygen Delivery Method Room Air Oxygen Flow Rate Sepsis Recent Fever Within 48 Hours No Sepsis New/Unexplained Change in Mental Status N/A Sepsis Action Taken by Nursing No Action Required 08/26/20 17:31 08/26/20 17:59 08/26/20 18:00 Temperature Temperature Source Pulse Rate 117 H 118 H Pulse Rate [Right Finger] Pulse Rate from SpO2 Sensor 115 H 117 H Respiratory Rate 19 36 H Respiratory Effort / Characteristics Blood Pressure 180/104 H 171/124 H Blood Pressure Mean 121 154 Pulse Oximetry 100 74 L 96 Oxygen Delivery Method Oxymask Room Air Oxymask Oxygen Flow Rate 10 10 Sepsis Recent Fever Within 48 Hours Sepsis New/Unexplained Change in Mental Status Sepsis Action Taken by Nursing 08/26/20 18:05 08/26/20 18:11 08/26/20 18:15 Temperature Temperature Source Pulse Rate 130 H 123 H Pulse Rate [Right Finger] 118 H Pulse Rate from SpO2 Sensor 131 H 127 H Respiratory Rate 30 H 29 H 28 H Respiratory Effort / Characteristics Spontaneous Short of Breath Blood Pressure 203/126 H 187/110 H Blood Pressure Mean 147 124 Pulse Oximetry 98 97 99 Oxygen Delivery Method Oxymask Oxymask Oxymask Oxygen Flow Rate 9 10 10 Sepsis Recent Fever Within 48 Hours Sepsis New/Unexplained Change in Mental Status Sepsis Action Taken by Nursing 08/26/20 18:19 08/26/20 18:21 08/26/20 18:30 Temperature Temperature Source Pulse Rate 108 H 132 H 107 H Pulse Rate [Right Finger] Pulse Rate from SpO2 Sensor 108 H Respiratory Rate 23 20 Respiratory Effort / Characteristics Blood Pressure 187/94 H 203/126 H 153/112 H Blood Pressure Mean 124 123 Pulse Oximetry 99 Oxygen Delivery Method Oxymask Oxygen Flow Rate 10 Sepsis Recent Fever Within 48 Hours Sepsis New/Unexplained Change in Mental Status Sepsis Action Taken by Residential Medications Current Medication List: was personally reviewed by me Laboratory Data Attestation: I reviewed the patient's lab results. Result diagrams: 08/26/20 16:02 08/26/20 16:02 Lab Results 08/26/20 08/26/20 08/26/20 Range/Units 16:02 16:02 16:02 WBC 2.62 L (4.8-10.8) K/uL RBC 3.23 L (4.2-5.4) M/uL Hgb 9.8 L (12.0-16.0) g/dL Hct 29.0 L (37-47) % MCV 89.8 (80-100) fL MCH 30.3 (25-34) pg MCHC 33.8 (32-36) g/dL RDW Std Deviation 62.9 H (36.4-46.3) fL RDW Coeff of Zhao 19.4 H (11.5-14.5) % Plt Count 73 L (130-400) K/uL MPV 9.8 (7.4-10.4) fL Platelet Estimate Decreased L (Normal) PT 12.0 (9.0-12.0) Seconds INR 1.1 (0.9-1.1) APTT 26.2 (21.0-31.0) Seconds PTT Ratio 0.9 Sodium 131 L (136-145) mmol/L Potassium 3.4 L (3.5-5.1) mmol/L Chloride 99 (98-107) mmol/L Carbon Dioxide 23 (21-32) mmol/L Anion Gap 9.0 (3-11) BUN 14 (7-18) mg/dl Creatinine 0.49 L (0.6-1.2) mg/dl Est Cr Clr Drug Dosing 108.0 ml/min Est GFR ( Amer) 109.7 Est GFR (Non-Af Amer) 94.6 BUN/Creatinine Ratio 29.6 H (10-20) Glucose 102 H (70-99) mg/dl Calcium 8.4 L (8.5-10.1) mg/dl Magnesium 2.0 (1.8-2.4) mg/dl Total Bilirubin 0.5 (0.2-1) mg/dl AST 28 (15-37) U/L ALT 10 L (12-78) U/L Alkaline Phosphatase 78 (45-117) U/L Troponin I 0.023 (0-0.045) ng/ml Total Protein 6.7 (6.4-8.2) gm/dl Albumin 2.9 L (3.4-5.0) gm/dl Globulin 3.8 (2.5-4.0) gm/dl Albumin/Globulin Ratio 0.8 L (0.9-2) COVID-19 Eval Order SARS-CoV-2, RNA, NAAT (NEGATIVE) 08/26/20 08/26/20 Range/Units 18:19 18:19 WBC (4.8-10.8) K/uL RBC (4.2-5.4) M/uL Hgb (12.0-16.0) g/dL Hct (37-47) % MCV (80-100) fL MCH (25-34) pg MCHC (32-36) g/dL RDW Std Deviation (36.4-46.3) fL RDW Coeff of Zhao (11.5-14.5) % Plt Count (130-400) K/uL MPV (7.4-10.4) fL Platelet Estimate (Normal) PT (9.0-12.0) Seconds INR (0.9-1.1) APTT (21.0-31.0) Seconds PTT Ratio Sodium (136-145) mmol/L Potassium (3.5-5.1) mmol/L Chloride (98-107) mmol/L Carbon Dioxide (21-32) mmol/L Anion Gap (3-11) BUN (7-18) mg/dl Creatinine (0.6-1.2) mg/dl Est Cr Clr Drug Dosing ml/min Est GFR ( Amer) Est GFR (Non-Af Amer) BUN/Creatinine Ratio (10-20) Glucose (70-99) mg/dl Calcium (8.5-10.1) mg/dl Magnesium (1.8-2.4) mg/dl Total Bilirubin (0.2-1) mg/dl AST (15-37) U/L ALT (12-78) U/L Alkaline Phosphatase (45-117) U/L Troponin I (0-0.045) ng/ml Total Protein (6.4-8.2) gm/dl Albumin (3.4-5.0) gm/dl Globulin (2.5-4.0) gm/dl Albumin/Globulin Ratio (0.9-2) COVID-19 Eval Order Covid19 IDNow [facility] SARS-CoV-2, RNA, NAAT NEGATIVE (NEGATIVE) Administered Medications Discontinued Medications Albuterol (Albut/Ipratrop 3mg/0.5mg Neb 3 Ml Vial) 3 ml NEB NOW STA Stop: 08/26/20 17:58 Last Admin: 08/26/20 18:05 Dose: 3 ml Documented by: [id number] Sodium Chloride (Nss 1000ml) 500 mls @ 999 mls/hr IV .Q31M ONE Stop: 08/26/20 16:32 Last Infusion: 08/26/20 17:00 Dose: 0 mls/hr Documented by: [id number] Admin: 08/26/20 16:30 Dose: 999 mls/hr Documented by: [id number] Sodium Chloride (Nss 1000ml) 500 mls @ 999 mls/hr IV .Q31M ONE Stop: 08/26/20 17:34 Last Infusion: 08/26/20 17:44 Dose: 0 mls/hr Documented by: [id number] Admin: 08/26/20 17:05 Dose: 999 mls/hr Documented by: [id number] Metoprolol Tartrate (Metoprolol Tartrate 1 Mg/Ml Vial) 5 mg IV NOW STA Stop: 08/26/20 18:14 Last Admin: 08/26/20 18:22 Dose: Not Given Documented by: [id number] Metoprolol Tartrate (Metoprolol Tartrate 1 Mg/Ml Vial) Confirm Administered Dose 5 mg IV .STK-MED ONE Stop: 08/26/20 18:16 Last Admin: 08/26/20 18:21 Dose: 5 mg Documented by: [id number] Nitroglycerin (Nitroglycerin 2% Ointment 30gm Tube) Confirm Administered Dose 18 inch .ROUTE .STK-MED ONE Stop: 08/26/20 17:58 Last Admin: 08/26/20 18:11 Dose: Not Given Documented by: [id number] Nitroglycerin (Nitroglycerin 2% Ointment 30gm Tube) 2 inch EXT NOW STA Stop: 08/26/20 17:58 Last Admin: 08/26/20 18:11 Dose: 2 inch Documented by: [id number] Ondansetron HCl (Ondansetron Inj 2 Mg/Ml 2 Ml Vial) Confirm Administered Dose 4 mg .ROUTE .STK-MED ONE Stop: 08/26/20 18:07 Last Admin: 08/26/20 18:11 Dose: 4 mg Documented by: [id number] Oxymetazoline HCl (Oxymetazoline 0.05% 30 Ml Btl) 2 sprays JELENA NOW Stop: 08/26/20 15:47 Last Admin: 08/26/20 17:44 Dose: 2 sprays Documented by: [id number] Oxymetazoline HCl (Oxymetazoline 0.05% 30 Ml Btl) Confirm Administered Dose 150 sprays .ROUTE .STK-MED ONE Stop: 08/26/20 15:49 Last Admin: 08/26/20 17:10 Dose: Not Given Documented by: [id number] Imaging Data Radiologist's Impression: XR chest 1V portable CLINICAL HISTORY: Shortness of breath. Uterine cancer. COMPARISON STUDY: Chest CT August 22, 2020. FINDINGS: A right internal jugular Dspuks-x-Bsao is in place. A right lower lobe mass is better depicted on CT of August 22, 2020. Smaller pulmonary metastases are better depicted on that exam as well. There is no pneumothorax. Small bilateral pleural effusions are again noted. Pulmonary edema has increased. Irregular linear left midlung opacity is unchanged. Moderate cardiomegaly is noted. Right lower lung and left midlung airspace opacity is increased. IMPRESSION: 1. Interval increase in pulmonary edema. 2. Persistent bilateral pleural effusions. 3. Redemonstration of multiple pulmonary masses and nodules, better depicted on prior chest CT. These are consistent with metastatic disease. 4. Increase in right lower lung and left perihilar opacity which could reflect an infectious process or pulmonary edema. Discharge Plan Visit Data Chief Complaint: Nose Bleed (Minor) Stated Complaint: NOSE BLEED ED Provider: Ciro Chris Discharge Problem: Hypoxia, Epistaxis, CHF (congestive heart failure), SOB (shortness of breath), Thrombocytopenia Patient Disposition: Admitted As Inpatient Condition: Fair Forms Stand Alone Forms: [facility] Prescriptions Prescriptions: No Action multivitamin [Multiple Vitamins] tablet 1 tab PO DAILY RF: 0 omega-3 fatty acids 1,000 mg capsule 1,000 mg PO DAILY RF: 0 calcium carbonate 600 mg calcium (1,500 mg) tablet 600 mg PO .BID/3XW RF: 0 cyclosporine [Restasis] 0.05 % dropperette 1 drops OP Q12H RF: 0 Prolia 60 mg/mL syringe 60 mg SQ Q6MO RF: 0 sertraline 50 mg tablet 50 mg PO DAILY Qty: 90 RF: 3 metoprolol succinate [Toprol XL] 50 mg tablet extended release 24 hr 50 mg PO DAILY Qty: 90 RF: 3 simvastatin [Zocor] 10 mg tablet 20 mg PO QPM Qty: 180 RF: 3 cholecalciferol (vitamin D3) 50 mcg (2,000 unit) capsule 50 mcg PO DAILY RF: 0 naproxen 500 mg tablet 500 mg PO DAILY PRN (Reason: pain) Qty: 30 RF: 3 mometasone 50 mcg/actuation spray,non-aerosol 1 spray intranasal DAILY PRN (Reason: Allergic Symptoms) Qty: 17 RF: 2 gabapentin 400 mg Tablet 400 mg PO TID RF: 0 polyethylene glycol 3350 [Miralax] 17 gram Powder In Packet 17 g PO DAILY PRN (Reason: Constipation) RF: 0 ondansetron 8 mg Tablet,Disintegrating 8 mg PO Q12H PRN (Reason: Nausea) RF: 0 loratadine [Claritin] 10 mg Tablet 10 mg PO BID RF: 0 Magic Swizzle 10 ml PO Q4H PRN (Reason: Mouth Irritation) RF: 0 miscellaneous throat product Aerosol,[place] 1 spray MUCOUS MEMBRANE TID PRN (Reason: Mouth Irritation) RF: 0 miscellaneous throat product 10 ml buccal TID PRN (Reason: Mouth Irritation) RF: 0 Referrals Referrals: Janelle Lima MD [Primary Care Provider] - Discharge Problem: CHF (congestive heart failure) Qualifiers: Heart failure type: unspecified Heart failure chronicity: acute Qualified Code(s): I50.9 - Heart failure, unspecified
[2020-08-26 16:29] LABS: INR 1.1 (0.9-1.1); Partial Thromboplastin Ratio 0.9; Partial Thromboplastin Time 26.2 Seconds (21.0-31.0)
[2020-08-26 16:41] LABS: Albumin Level 2.9 gm/dl (3.4-5.0); BUN Creatinine Ratio 29.6 (10-20); Calcium 8.4 mg/dl (8.5-10.1); Est GFR (African American) 109.7; Est GFR (Non-African American) 94.6; Potassium 3.4 mmol/L (3.5-5.1)
[2020-08-26 16:44] LABS: Albumin Globulin Ratio 0.8 (0.9-2); Bilirubin,Total 0.5 mg/dl (0.2-1); Globulin 3.8 gm/dl (2.5-4.0); Total Protein 6.7 gm/dl (6.4-8.2)
[2020-08-26 17:03] LABS: Mean Platelet Volume 9.8 fL (7.4-10.4); Platelet Count 73 K/uL (130-400)
[2020-08-26 17:04] LABS: Platelet Estimate Decreased (Normal)
[2020-08-26 17:26] LABS: Troponin I 0.023 ng/ml (0-0.045)
--- NOTE | 2020-08-26 17:48 | ENT Consultation ---
Date of Consultation August 26, 2020 Assessment & Plan (1) Epistaxis: Based on concern for her cardiac status patient will be admitted. Should be discharged on antibiotics for 7 days such as Augmentin. Patient should start nasal saline spray 4 times a day starting tomorrow. I will see her in clinic next week on Wednesday to remove the packing. Present on Admission?: Yes History of Present Illness History of Present Illness Patient has had epistaxis since yesterday morning. Attempted afrin and compression at home with continued bleeding. Patient is currently on chemo therapy and has not had her platelets checked recently. No concern for aspiration at this point. No history of epistaxis. Allergies Allergy/AdvReac Type Severity Reaction Status Date / Time selina Allergy Intermediate HIVES Verified 07/17/20 09:01 Sulfa (Sulfonamide Allergy Intermediate HIVES Verified 07/17/20 09:01 Antibiotics) milk AdvReac Mild GI UPSET Verified 07/17/20 09:01 Poison Zoey Extract/Poison Allergy Intermediate HIVES Uncoded 07/17/20 09:01 [place] Extra Home Medications Medication Instructions Recorded Confirmed Type calcium carbonate 600 mg calcium 600 mg PO BID tab 06/27/18 07/17/20 History (1,500 mg) tablet multivitamin 1 tab PO DAILY 06/27/18 07/17/20 History omega-3 fatty acids 1,000 mg 1,000 mg PO DAILY 06/27/18 07/17/20 History capsule cyclosporine 0.05 % eye drops in a 1 drops OP Q12H 06/30/18 07/17/20 History dropperette denosumab 60 mg/mL subcutaneous 60 mg SQ Q6MO ml 06/14/19 07/17/20 History syringe amitriptyline 25 mg tablet 25 mg PO DAILY #90 tab 07/20/19 07/17/20 Rx sertraline 50 mg tablet 50 mg PO DAILY #90 tab 01/11/20 07/17/20 Rx diclofenac sodium 1 % topical gel 2 gm TOP QID #100 gm 02/07/20 07/17/20 Rx gabapentin 300 mg tablet 300 mg PO TID 04/26/20 07/17/20 History metoprolol succinate 50 mg 50 mg PO DAILY #90 tab 05/27/20 07/17/20 Rx tablet,extended release 24 hr simvastatin 10 mg tablet 20 mg PO QPM #180 tab 05/27/20 07/17/20 Rx tramadol 50 mg tablet 50 mg PO BID PRN #60 tab 06/06/20 07/17/20 Rx cholecalciferol (vitamin D3) 50 50 mcg PO DAILY 06/14/20 07/17/20 History mcg (2,000 unit) capsule naproxen 500 mg tablet 500 mg PO DAILY PRN #30 tab 06/24/20 07/17/20 Rx Magic Swizzle 10 ml PO Q4H PRN 07/17/20 History gabapentin 400 mg PO TID 07/17/20 07/17/20 History loratadine [Claritin] 10 mg PO DAILY 07/17/20 07/17/20 History ondansetron 8 mg PO Q12H PRN 07/17/20 07/17/20 History oxycodone-acetaminophen [Percocet] 1 tab PO Q6H PRN 07/17/20 07/17/20 History polyethylene glycol 3350 [Miralax] 17 g PO DAILY PRN 07/17/20 07/17/20 History mometasone 50 mcg/actuation nasal 1 spray INTRANASAL DAILY PRN #17 g 07/31/20 Rx spray Patient History Medical History (Updated 08/26/20 @ 17:44 by Gabby Beaulieu MD) Cancer Herpes zoster Hypercholesteremia Left-sided chest wall pain Lumbar spinal stenosis Lung nodule Peripheral neuropathy due to chemotherapy Syncope Surgical History (Updated 07/17/20 @ 08:40 by hSannan Barnes RN) H/O colonoscopy H/O dilation and curettage H/O hysterectomy with oophorectomy H/O oophorectomy H/O oral surgery H/O: hysterectomy History of back surgery History of cataract surgery History of shoulder surgery History of sinus surgery Hx of appendectomy Hx of tonsillectomy Status post cryoablation Buttocks Family History Mother Lymphoma Father Alzheimer disease Unknown Uterine cancer Grandfather (Maternal) Myocardial infarction Denies family history of Ovarian cancer Prostate cancer Breast cancer Colorectal cancer Social History Smoking Status: Never smoker Hx Alcohol Use: Yes Alcohol type: wine Hx Substance Use: Yes (medical marijuana) Hearing Ability: Use of Hearing Aid marital status: Current Living Situation: Spouse current occupational status: retired Feels Safe at Home: Yes Dental Care, Regularly: Yes Physical Activity Frequency: 1-2 Times per Week Physical Activity Frequency Comment: swimming and walking Seatbelt Use: always Sunscreen Use: Yes (sometimes) Review of Systems Review of Systems: All systems reviewed & are unremarkable except as noted in HPI & below Physical Exam Physical Exam: Nose: Large clot in right nasal cavity. Anterior part of the clot was removed revealing no bleeding of the anterior septum in Kiesselbach's plexus. Clot in the oropharynx was visualized with no active bleeding. Procedure: Control of epistaxis Afrin was applied. An 8cm merocel wrapped with Surgicel and bacitracin was placed uneventfully. Patient tolerated the procedure without any issue. Afrin was re-applied. When I went to re-evaluate the patient 15 minutes later there was no sign of active bleeding, but patient was having new acute shortness of breath. Patient had desaturated to 77%, but once an oxygen face mask was applied her saturations bandar to 97%. Please refer to the Emergency Department Physician's note for subsequent treatment. Results & Data ([facility]) Vital Signs (Past 12 Hours) Vital Signs Temp Pulse Resp BP Pulse Ox 08/26/20 17:00 104 H 20 165/87 H 95 08/26/20 16:30 105 H 22 149/95 H 97 08/26/20 14:24 37.1 C 123 H 18 171/82 H 99 Laboratory Results platelets 73
[2020-08-26] MEDS ORDERED: NITROGLYCERIN 2% OINTMENT 30GM TUBE EXT STA (17:57)
[2020-08-26] MEDS ORDERED: ALBUT/IPRATROP 3MG/0.5MG NEB 3 ML VIAL NEB STA (17:57)
[2020-08-26] MEDS ORDERED: NITROGLYCERIN 2% OINTMENT 30GM TUBE ONE (17:57)
[2020-08-26] MEDS ORDERED: ONDANSETRON INJ 2 MG/ML 2 ML VIAL ONE (18:06)
[2020-08-26] MEDS ORDERED: METOPROLOL TARTRATE 1 MG/ML VIAL IV STA ×2 (18:13→18:40)
[2020-08-26] MEDS ORDERED: METOPROLOL TARTRATE 1 MG/ML VIAL IV ONE (18:15)
--- NOTE | 2020-08-26 18:28 | XRay Report ---
XR chest 1V portable CLINICAL HISTORY: Shortness of breath. Uterine cancer. COMPARISON STUDY: Chest CT August 22, 2020. FINDINGS: A right internal jugular [id number] is in place. A right lower lobe mass is better depic danny on CT of August 22, 2020. Smaller pulmonary metastases are better depicted on that exam as well . There is no pneumothorax. Small bilateral pleural effusions are again noted. Pulmonary edema has in creased. Irregular linear left midlung opacity is unchanged. Moderate cardiomegaly is noted. Right lo wer lung and left midlung airspace opacity is increased. IMPRESSION: 1. Interval increase in pulmonary edema. 2. Persistent bilateral pleural effusions. 3. Redemonstration of multiple pulmonary masses and nodules, better depicted on prior chest CT. These are consistent with metastatic disease. 4. Increase in right lower lung and left perihilar opacity which could reflect an infectious process or pulmonary edema. ACT 112: Negative or not required by law. Electronically signed by: Nickolas Stoll M.D. 08/26/2020 6:27 PM
[2020-08-26] MEDS ORDERED: FUROSEMIDE 40 MG/4 ML VIAL IV STA (18:40)
--- NOTE | 2020-08-26 18:42 | Electrocardiogram Report ---
Test Reason : Blood Pressure : / mmHG Vent. Rate : 104 BPM Atrial Rate : 100 BPM P-R Int : 000 ms QRS Dur : 116 ms QT Int : 378 ms P-R-T Axes : 000 -25 069 degrees QTc Int : 497 ms Atrial fibrillation with rapid ventricular response Left bundle branch block Abnormal ECG When compared with ECG of 22-APR-2020 09:18, Atrial fibrillation has replaced Sinus rhythm Confirmed by Gamaliel Alvarez ([id number]) on 08/26/2020 6:42:28 PM Referred By: ER Confirmed By:Chino Alvarez
[2020-08-26] MEDS ORDERED: POTASSIUM CHLORIDE / WTR 10 MEQ/100 ML PLCT IV ONE (18:52)
--- NOTE | 2020-08-26 20:13 | History & Physical Report ---
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 #Acute hypoxic respiratory failure secondary to flash pulmonary edema complicated by leiomyosarcoma, thrombocytopenia, and suspicious EKG findings See HPI for recent changes to patient's health. She became hypoxic and short of breath immediately after nasal packing for recurrent epistaxis secondary to thrombocytopenia secondary to her chemotherapy. Chest x-ray demonstrated flash pulmonary edema, and patient's had an EKG suspicious for an anterior FL. The patient was treated aggressively with 40 mg of IV Lasix, 10 mg of IV Lopressor, Nitropaste, duo nebs, and oxygen. The patient made significant improvement and stabilized. Patient is currently saturating well on oxygen mask on 10 L. Patient reports no chest pain no chest pressure no shortness of breath, no other symptoms. The on-call railroad wheels and axles inspector was consulted, and evaluated the patient at bedside with a bedside echo determining no need for emergent catheterization. Recommending the patient be admitted for further evaluation and management. We will obtain a formal echocardiogram tomorrow and formally consult cardiology for their recommendations, in the interim overnight will provide patient with as needed metoprolol 2.5 mg IV for heart rates greater than 100, we will repeat a BMP in the morning, will provide another 40 mg of IV Lasix in the a.m. we recommend outpatient follow-up with a legal aid as well. -Admit to telemetry -Complete transthoracic echo -Consult cardiology -Resumed home metoprolol succinate 50 mg every afternoon -IV Lopressor 5 mg for heart rate greater than 100 -EKG with chest pain -CXR w/ shortness of breath -40 mg IV furosemide every morning -Patient has a history of low potassium with diuretics started on 20 M EQ's every morning -Daily BMP -Given history of thrombocytopenia avoid NSAIDs -As needed O2 -As needed BiPAP ordered in the event that she has a severe flash pulmonary edema episode overnight #Epistaxis secondary to chemotherapy complicated by thrombocytopenia Patient has recurrent episodes of epistaxis and thrombocytopenia secondary to her chemotherapy. Traditionally these episodes are treated with nasal packing without additional issue. We will follow ENTs guidance regarding care for nasal packing. -ENT consulted -Augmentin x7 days -Nasal saline spray 4 times daily -Up in the clinic next Wednesday #Inspiratory wheeze Noted on physical examination, likely secondary to bilateral chest mets. Monitors patient's oxygenation status, alert providers if acute desaturation occurs, or increased work of breathing. -Consider outpatient spirometry -Follow-up with outpatient oncology #Peripheral neuropathy due to chemotherapy -Continue gabapentin for 400 mg p.o. 3 times daily #Allergies -Continue loratadine p.o. twice daily #Anxiety depression -Continue sertraline 50 mg daily #Constipation -Continue MiraLAX #Hyperlipidemia -Continue simvastatin FENa: Heart healthy diet Code Status: Full code DVT PPX: Not indicated given thrombocytopenia PT/OT: Ordered Dispo: MedSurg telemetry Lai Hernandez MD PGY 3, FCM This chart was completed utilizing [employer] voice recognition software. Grammatical errors, random word insertions, pronoun errors, and in complete sentences are an occasional consequence of the system. Any questions or concerns about the content, text, or information contained within the body of this dictation should be addressed directly to the physician for clarification. 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 Patient is on a chemotherapy regimen which is frequently resulted in her developing significant thrombocytopenia, in the past she has had notable's bleeds that required packing. Recently she has noticed increased shortness of breath with activity, other than that she was in her usual state of health when she experienced an episode of epistaxis approximately 24 hours ago. She contacted her ENT, who recommended she obtain lab work and have her nose packed. Lab work demonstrated a platelet value of 76, the patient had her nose packed and tolerated the procedure well. Immediately after the procedure she began to become short of breath and hypoxic to the emergency department for further care. In the emergency department an chest x-ray was obtained demonstrating flash pulmonary edema and ECG was obtained demonstrating her left bundle branch block and a questionable anterior FL. CBC demonstrated a white count of 2.62, hemoglobin of 9.8, platelets of 73, INR 1.1, CMP showed a sodium of 131, potassium of 3.4, creatinine of 0.49, glucose of 102, calcium 8.4, liver enzymes were normal, trop.023, Covid negative. Patient was treated aggressively for her findings, she was given Nitropaste, 40 mg IV Lasix, 10 mg IV Lopressor, DuoNeb's and placed on oxygen mask. Cardiology was consulted for the ECG findings, they performed a bedside echo, and did not feel the patient met criteria for catheterization. Recommending for further observation evaluation and management. The patient subsequently stabilized and the primary team was consulted for admission. Patient related history similar to that noted above. She stated she has never had an episode of flash pulmonary edema before. However recently she received cryoablation at the [facility], during that admission the doctors were also concerned about an anterior FL superimposed on her lower bundle branch block. They made no significant intervention, and did not mention it in her discharge paperwork per the patient. She stated recently she has been having increasing shortness of breath with exertion, has some leg swelling intermittently, more since her recent cryoablation, and denies a history of congestive heart failure. She will be admitted for evaluation and management of her suspicious EKG, resolution of her acute hypoxic respiratory distress, and further evaluation and management of her flash pulmonary edema. Primary Care Provider: Janelle Lima MD Allergies Allergy/AdvReac Type Severity Reaction Status Date / Time selina Allergy Intermediate HIVES Verified 08/26/20 19:41 Sulfa (Sulfonamide Allergy Intermediate HIVES Verified 08/26/20 19:41 Antibiotics) milk AdvReac Mild GI UPSET Verified 07/17/20 09:01 Home Medications Medication Instructions Recorded Confirmed Type calcium carbonate 600 mg calcium 600 mg PO .BID/3XW tab 06/27/18 08/26/20 History (1,500 mg) tablet multivitamin 1 tab PO DAILY 06/27/18 08/26/20 History omega-3 fatty acids 1,000 mg 1,000 mg PO DAILY 06/27/18 08/26/20 History capsule cyclosporine 0.05 % eye drops in a 1 drops OP Q12H 06/30/18 08/26/20 History dropperette denosumab 60 mg/mL subcutaneous 60 mg SQ Q6MO ml 06/14/19 08/26/20 History syringe sertraline 50 mg tablet 50 mg PO DAILY #90 tab 01/11/20 08/26/20 Rx metoprolol succinate 50 mg 50 mg PO DAILY #90 tab 05/27/20 08/26/20 Rx tablet,extended release 24 hr simvastatin 10 mg tablet 20 mg PO QPM #180 tab 05/27/20 08/26/20 Rx cholecalciferol (vitamin D3) 50 50 mcg PO DAILY 06/14/20 08/26/20 History mcg (2,000 unit) capsule naproxen 500 mg tablet 500 mg PO DAILY PRN #30 tab 06/24/20 08/26/20 Rx gabapentin 400 mg PO TID 07/17/20 08/26/20 History loratadine [Claritin] 10 mg PO BID 07/17/20 08/26/20 History ondansetron 8 mg PO Q12H PRN 07/17/20 08/26/20 History polyethylene glycol 3350 [Miralax] 17 g PO DAILY PRN 07/17/20 08/26/20 History mometasone 50 mcg/actuation nasal 1 spray INTRANASAL DAILY PRN #17 g 07/31/20 08/26/20 Rx spray miscellaneous throat product 10 ml BUCCAL TID PRN 08/26/20 08/26/20 History Past Med/Surg History Medical History Cancer Herpes zoster Hypercholesteremia Left-sided chest wall pain Lumbar spinal stenosis Lung nodule Peripheral neuropathy due to chemotherapy Syncope Surgical History H/O colonoscopy H/O dilation and curettage H/O hysterectomy with oophorectomy H/O oophorectomy H/O oral surgery H/O: hysterectomy History of back surgery History of cataract surgery History of shoulder surgery History of sinus surgery Hx of appendectomy Hx of tonsillectomy Status post cryoablation Buttocks Family History Mother Lymphoma Father Alzheimer disease Unknown Uterine cancer Grandfather (Maternal) Myocardial infarction Denies family history of Ovarian cancer Prostate cancer Breast cancer Colorectal cancer Social History Smoking Status: Never smoker Do You Dip or Chew Tobacco: No; Hx Alcohol Use: No Hx Substance Use: No Preferred Language: Kazakh Communication Ability: Effective Hearing Ability: Use of Hearing Aid Java Security Architect Required: No Beliefs That Will Affect Care: None marital status: Current Living Situation: Spouse current occupational status: retired Other Information That Helps Us Care for You: No Feels Safe at Home: Yes Safety Concerns: Feels Safe At This Time Dental Care, Regularly: Yes Physical Activity Frequency: 1-2 Times per Week Physical Activity Frequency Comment: swimming and walking Seatbelt Use: always Sunscreen Use: Yes (sometimes) Assistive Devices: Cane Review of Systems Review of Systems: All systems reviewed & are unremarkable except as noted in HPI & below Physical Exam Physical Exam: General: Patient lying in bed comfortably with oxygen mask in place HEENT: Normocephalic atraumatic Neck: Normal to visual inspection, trachea midline, Cardiac: Tachycardia otherwise irregular rhythm, 3+ systolic ejection murmur, 1+ pedal edema bilaterally, negative calf tenderness Respiratory: Inspiratory wheeze bilaterally, did not appreciate any significant rales or rhonchi, symmetrical chest expansion, no increased work of breathing GI: Soft nontender nondistended, bowel sounds present all 4 quadrants MSK: Moves all extremities Neuro: Alert and oriented x4 Psych: Calm and cooperative Results & Data Results & Data ([facility]) Vital Signs (Past 12 Hours) Vital Signs Temp Pulse Pulse Resp BP Pulse Ox 08/26/20 19:45 99 H 21 137/89 97 08/26/20 19:30 99 H 13 139/97 99 08/26/20 19:25 107 H 153/112 H 08/26/20 19:24 113 H 16 173/119 H 100 08/26/20 19:07 106 H 20 151/89 H 100 08/26/20 19:00 106 H 23 151/89 H 99 08/26/20 18:45 104 H 30 H 168/110 H 100 08/26/20 18:30 107 H 20 153/112 H 08/26/20 18:21 132 H 203/126 H 08/26/20 18:19 108 H 23 187/94 H 99 08/26/20 18:15 123 H 28 H 187/110 H 99 08/26/20 18:11 130 H 29 H 203/126 H 97 08/26/20 18:05 118 H 30 H 98 08/26/20 18:00 118 H 36 H 171/124 H 96 08/26/20 17:59 74 L 08/26/20 17:31 117 H 19 180/104 H 100 08/26/20 17:00 104 H 20 165/87 H 95 08/26/20 16:30 105 H 22 149/95 H 97 08/26/20 14:24 37.1 C 123 H 18 171/82 H 99 Laboratory Results 08/26/20 08/26/20 08/26/20 Range/Units 18:19 18:19 16:02 WBC (4.8-10.8) K/uL RBC (4.2-5.4) M/uL Hgb (12.0-16.0) g/dL Hct (37-47) % MCV (80-100) fL MCH (25-34) pg MCHC (32-36) g/dL RDW Std Deviation (36.4-46.3) fL RDW Coeff of Zhao (11.5-14.5) % Plt Count (130-400) K/uL MPV (7.4-10.4) fL Platelet Estimate (Normal) PT (9.0-12.0) Seconds INR (0.9-1.1) APTT (21.0-31.0) Seconds PTT Ratio Sodium 131 L (136-145) mmol/L Potassium 3.4 L (3.5-5.1) mmol/L Chloride 99 (98-107) mmol/L Carbon Dioxide 23 (21-32) mmol/L Anion Gap 9.0 (3-11) BUN 14 (7-18) mg/dl Creatinine 0.49 L (0.6-1.2) mg/dl Est Cr Clr Drug Dosing 108.0 ml/min Est GFR ( Amer) 109.7 Est GFR (Non-Af Amer) 94.6 BUN/Creatinine Ratio 29.6 H (10-20) Glucose 102 H (70-99) mg/dl Calcium 8.4 L (8.5-10.1) mg/dl Magnesium 2.0 (1.8-2.4) mg/dl Total Bilirubin 0.5 (0.2-1) mg/dl AST 28 (15-37) U/L ALT 10 L (12-78) U/L Alkaline Phosphatase 78 (45-117) U/L Troponin I 0.023 (0-0.045) ng/ml Total Protein 6.7 (6.4-8.2) gm/dl Albumin 2.9 L (3.4-5.0) gm/dl Globulin 3.8 (2.5-4.0) gm/dl Albumin/Globulin Ratio 0.8 L (0.9-2) COVID-19 [facility] SARS-CoV-2, RNA, NAAT NEGATIVE (NEGATIVE) 08/26/20 08/26/20 Range/Units 16:02 16:02 WBC 2.62 L (4.8-10.8) K/uL RBC 3.23 L (4.2-5.4) M/uL Hgb 9.8 L (12.0-16.0) g/dL Hct 29.0 L (37-47) % MCV 89.8 (80-100) fL MCH 30.3 (25-34) pg MCHC 33.8 (32-36) g/dL RDW Std Deviation 62.9 H (36.4-46.3) fL RDW Coeff of Zhao 19.4 H (11.5-14.5) % Plt Count 73 L (130-400) K/uL MPV 9.8 (7.4-10.4) fL Platelet Estimate Decreased L (Normal) PT 12.0 (9.0-12.0) Seconds INR 1.1 (0.9-1.1) APTT 26.2 (21.0-31.0) Seconds PTT Ratio 0.9 Sodium (136-145) mmol/L Potassium (3.5-5.1) mmol/L Chloride (98-107) mmol/L Carbon Dioxide (21-32) mmol/L Anion Gap (3-11) BUN (7-18) mg/dl Creatinine (0.6-1.2) mg/dl Est Cr Clr Drug Dosing ml/min Est GFR ( Amer) Est GFR (Non-Af Amer) BUN/Creatinine Ratio (10-20) Glucose (70-99) mg/dl Calcium (8.5-10.1) mg/dl Magnesium (1.8-2.4) mg/dl Total Bilirubin (0.2-1) mg/dl AST (15-37) U/L ALT (12-78) U/L Alkaline Phosphatase (45-117) U/L Troponin I (0-0.045) ng/ml Total Protein (6.4-8.2) gm/dl Albumin (3.4-5.0) gm/dl Globulin (2.5-4.0) gm/dl Albumin/Globulin Ratio (0.9-2) COVID-19 Eval Order SARS-CoV-2, RNA, NAAT (NEGATIVE) Code Status & VTE Plan Code Status Full VTE Prophylaxis Plan VTE Prophylaxis will be ordered: No Supervising Physician Co-Signing Physician Notes Patient seen and examined, chart reviewed, case discussed with Dr. Checo Hernandez and I agree with his assessment and plan as discussed above. Briefly, patient is a 74yo C female with history of metastatic leiomyosarcoma presenting with one day of epistaxis in setting of thrombocytopenia. She was evaluated by ENT in the ER and had nasal packing placed. Patient had episode of suspected flash pulmonary edema - elevated heart rate and blood pressure accompanied by respiratory distress and hypoxia with saturations in the 70's. She was treated with O2, Nitro, Lasix and Metoprolol. She had an EKG performed which was suspect for anterior wall process, also with preexisting LBBB. Cardiology was consulted and bedside echo was performed with normal wall motion noted. Patient's clinical status improved. Now with no respiratory complaints at present. Still with slight oozing from right nare. On exam she is afebrile, tachycardic and mildly hypertensive, otherwise stable. NAD Skin -no rash HEENT - NC/AT, packing present in right nare Heart - +S1/S2, regular, no m/r/g Lungs - CTA Abd - +BS, soft, NT/ND Ext - No edema Labs and images reviewed. Pancytopenia. Plt = 73 Assessment/Plan: = 74yo C female presenting with epistaxis s/p nasal packing, ?flash pulmonary edema episode now resolved. -Maintain packing in place. Continue antibiotics -Trend CBC. Transfusion consent signed and placed on chart - if bleeding persists will consider transfusion of platelets. If significant decline in H/H will transfuse PRBCs -Remainder of plan as above Resident Activity Tracking Resident Involvement: Resident Care Provided Care Provided: Adult Hospital Medicine (1) CHF (congestive heart failure) Heart failure chronicity: acute Heart failure type: unspecified Qualified Code(s): I50.9 - Heart failure, unspecified
[2020-08-26] MEDS ORDERED: METOPROLOL SUCC 50MG EXT REL TAB PO SCH (21:10)
[2020-08-26] MEDS ORDERED: METOPROLOL SUCC 50MG EXT REL TAB PO STA (22:01)
[2020-08-26] MEDS ORDERED: [UNRECOGNIZED DRUG - OTHER] BUCCAL PRN (22:16)
[2020-08-26] MEDS ORDERED: ACETAMINOPHEN 325 MG TAB PO PRN (22:16)
[2020-08-26] MEDS ORDERED: FLUTICASONE PROPIONATE NA SPR 16 GM BTL PRN (22:47)
[2020-08-26] MEDS ORDERED: Magic Swizzle w/Glycerin 240mL MT PRN (22:54)
[2020-08-26] MEDS: ONDANSETRON INJ 2 MG/ML 2 ML VIAL IV PRN (23:06)
--- NOTE | 2020-08-26 23:07 | Billing Data ---
Date of Service August 26, 2020 Coding Level of Care Code 07666 Initial Inpt Care Lvl 3
--- NOTE | 2020-08-26 23:20 | Cardiology Consultation ---
Date of Consultation August 26, 2020 Assessment & Plan (1) Acute respiratory failure with hypoxemia: 2. 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 Acute diastolic heart failure 4. Thrombocytopenia with epistaxis 5. Small pericardial effusion 6. Chronic left bundle-branch block 7. Hypertension 8. Anemia Patient with acute dyspnea/hypoxia in ED after nasal packing and receiving 1 L IV fluids. There was initial concern for an acute HI precipitating acute heart failure. Reviewed serial ECGs obtained in ED. Has a chronic left bundle branch block and last ECG obtained during time of respiratory distress had some anterior ST changes that did not meet criteria for acute HI. Bedside echo in the ED showed preserved LV function and normal anterior wall motion. Acute symptoms are not secondary to STEMI and patient is currently comfortable after initial medical management. No indication for emergent catheterization. Suspect respiratory failure multifactorial in the setting of patient's progressive metastatic disease to her lungs, pleural effusions and acute on chronic diastolic heart failure triggered in part by IV fluids. Patient also has a new pericardial effusion but no evidence of tamponade. Agree with plan for admission for observation, and IV diuresis. Trend troponin. Repeat echocardiogram in the a.m. Would avoid anticoagulation, additional antiplatelet therapy. In the setting of patient's comorbidities we will plan to avoid invasive procedures unless severe, refractory symptoms. History of Present Illness Attending Physician: Makayla Hernandez DO History of Present Illness Mrs. White is a very pleasant 74-year-old woman with a history of uterine leiomyosarcoma diagnosed in 2014 post resection and metastatic to brain (post gamma knife), bone/spine, lungs post XRT on active chemotherapy primarily managed by yissel (Dr. Oliver) who presented to the emergency department today with epistaxis in the setting of thrombocytopenia. Cardiology consulted urgently in the emergency department due to concern for possible acute HI. Patient previously seen by me years ago in the outpatient setting for lower extremity edema. She has a cardiac history remarkable for chronic diastolic heart failure, hypertension, dyslipidemia frequent PVCs, chronic venous insufficiency and chronic left bundle branch block for years. Had a Lexiscan SPECT in 02/2015 which was negative for ischemia, EF >70%. Most recent echo 05/2020 showed EF 60% with no wall motion abnormalities, mild MR, RVSP 36 mmHg. Reports that recently has been on a new chemotherapy agent with expected thrombocytopenia. Unfortunately recent CT scan showed progressive worsening metastatic disease involving chest, abdomen, pelvis with worsening pulmonary metastases and numerous intramuscular, soft tissue nodules along with metastases to pancreas. Also noted to have new small bilateral pleural effusions thought likely malignant and small pericardial effusion. Prior to today states gradual increase in exertional dyspnea but no other chest symptoms. In ED initially received Afrin spray, 1 L normal saline and underwent nasal packing. Soon thereafter became increasingly dyspneic, hypoxic. No reports of chest pain. Repeat ECG showed chronic left bundle branch block with ques tionable increased anterior discordant ST elevation not meeting Scarbossa criteria. Chest x-ray showed increased congestion. Nitropaste placed, given IV metoprolol and nebulizer treatment with improved shortness of breath. Bedside echo by me showed preserved LV function with conduction abnormality but no anterior wall motion abnormality. Small pericardial effusion without signs of tamponade. IVC not dilated but minimal respiratory change. Allergies Allergy/AdvReac Type Severity Reaction Status Date / Time selina Allergy Intermediate HIVES Verified 08/26/20 19:41 Sulfa (Sulfonamide Allergy Intermediate HIVES Verified 08/26/20 19:41 Antibiotics) milk AdvReac Mild GI UPSET Verified 07/17/20 09:01 Home Medications Medication Instructions Recorded Confirmed Type calcium carbonate 600 mg calcium 600 mg PO .BID/3XW tab 06/27/18 08/26/20 History (1,500 mg) tablet multivitamin 1 tab PO DAILY 06/27/18 08/26/20 History omega-3 fatty acids 1,000 mg 1,000 mg PO DAILY 06/27/18 08/26/20 History capsule cyclosporine 0.05 % eye drops in a 1 drops OP Q12H 06/30/18 08/26/20 History dropperette denosumab 60 mg/mL subcutaneous 60 mg SQ Q6MO ml 06/14/19 08/26/20 History syringe sertraline 50 mg tablet 50 mg PO DAILY #90 tab 01/11/20 08/26/20 Rx metoprolol succinate 50 mg 50 mg PO DAILY #90 tab 05/27/20 08/26/20 Rx tablet,extended release 24 hr simvastatin 10 mg tablet 20 mg PO QPM #180 tab 05/27/20 08/26/20 Rx cholecalciferol (vitamin D3) 50 50 mcg PO DAILY 06/14/20 08/26/20 History mcg (2,000 unit) capsule naproxen 500 mg tablet 500 mg PO DAILY PRN #30 tab 06/24/20 08/26/20 Rx gabapentin 400 mg PO TID 07/17/20 08/26/20 History loratadine [Claritin] 10 mg PO BID 07/17/20 08/26/20 History ondansetron 8 mg PO Q12H PRN 07/17/20 08/26/20 History polyethylene glycol 3350 [Miralax] 17 g PO DAILY PRN 07/17/20 08/26/20 History mometasone 50 mcg/actuation nasal 1 spray INTRANASAL DAILY PRN #17 g 07/31/20 08/26/20 Rx spray miscellaneous throat product 10 ml BUCCAL TID PRN 08/26/20 08/26/20 History Patient History Medical History Cancer Herpes zoster Hypercholesteremia Left-sided chest wall pain Lumbar spinal stenosis Lung nodule Peripheral neuropathy due to chemotherapy Syncope Surgical History H/O colonoscopy H/O dilation and curettage H/O hysterectomy with oophorectomy H/O oophorectomy H/O oral surgery H/O: hysterectomy History of back surgery History of cataract surgery History of shoulder surgery History of sinus surgery Hx of appendectomy Hx of tonsillectomy Status post cryoablation Buttocks Family History Mother Lymphoma Father Alzheimer disease Unknown Uterine cancer Grandfather (Maternal) Myocardial infarction Denies family history of Ovarian cancer Prostate cancer Breast cancer Colorectal cancer Social History Smoking Status: Never smoker Do You Dip or Chew Tobacco: No; Hx Alcohol Use: No Hx Substance Use: No Preferred Language: Occitan Communication Ability: Effective Hearing Ability: Use of Hearing Aid Oil Extractor Required: No Beliefs That Will Affect Care: None marital status: Current Living Situation: Spouse current occupational status: retired Other Information That Helps Us Care for You: No Feels Safe at Home: Yes Safety Concerns: Feels Safe At This Time Dental Care, Regularly: Yes Physical Activity Frequency: 1-2 Times per Week Physical Activity Frequency Comment: swimming and walking Seatbelt Use: always Sunscreen Use: Yes (sometimes) Assistive Devices: Cane Review of Systems Review of Systems: All systems reviewed & are unremarkable except as noted in HPI & below Physical Exam Physical Exam: General: Appears more comfortable than described. Facemask in place on 10 L O2. Able to carry on a conversation HEENT: Sclerae anicteric Lungs: Crackles at bases bilaterally Cardiac: Tachycardic, regular Abdomen: Soft, nontender, nondistended, positive bowel sounds. Extremities: Warm, well perfused, trace edema Neuro: Nonfocal Psych: Alert orient x3, normal affect and mood Results & Data ([facility]) Vital Signs (Past 12 Hours) Vital Signs Temp Pulse Pulse Resp BP BP Pulse Ox 08/26/20 22:16 98.6 F 104 H 14 166/83 H 100 08/26/20 21:44 104 H 21 162/99 H 100 08/26/20 21:31 174/132 H 100 08/26/20 21:00 162/99 H 97 08/26/20 20:30 20 159/83 H 93 08/26/20 20:02 100 H 14 159/103 H 100 08/26/20 19:45 99 H 21 137/89 97 08/26/20 19:30 99 H 13 139/97 99 08/26/20 19:25 107 H 153/112 H 08/26/20 19:24 113 H 16 173/119 H 100 08/26/20 19:07 106 H 20 151/89 H 100 08/26/20 19:00 106 H 23 151/89 H 99 08/26/20 18:45 104 H 30 H 168/110 H 100 08/26/20 18:30 107 H 20 153/112 H 08/26/20 18:21 132 H 203/126 H 08/26/20 18:19 108 H 23 187/94 H 99 08/26/20 18:15 123 H 28 H 187/110 H 99 08/26/20 18:11 130 H 29 H 203/126 H 97 08/26/20 18:05 118 H 30 H 98 08/26/20 18:00 118 H 36 H 171/124 H 96 08/26/20 17:59 74 L 08/26/20 17:31 117 H 19 180/104 H 100 08/26/20 17:00 104 H 20 165/87 H 95 08/26/20 16:30 105 H 22 149/95 H 97 08/26/20 14:24 98.8 F 123 H 18 171/82 H 99 PG Care Time/CCT Total # of Minutes Spent Total Time Spent with Patient: Total time spent is greater than 50% in coordination of care (as documented) at patient's floor/unit and/or counseling patient: Coding Level of Care Code 17821 Initial Inpt Care Lvl 3 Diagnoses Acute respiratory failure with hypoxemia J96.01
[2020-08-26] MEDS: POLYETHYLENE (MIRALAX) 17 GM PACK PO SCH (23:50)
[2020-08-26] MEDS: RESTASIS~ORDER AWAITING ACTION SCH (23:52)
[2020-08-27] MEDS ORDERED: ACETAMINOPHEN 1,000 MG/100 ML VIAL IV PRN (00:14)
[2020-08-27] MEDS: ONDANSETRON INJ 2 MG/ML 2 ML VIAL IV PRN (07:32)
[2020-08-27] MEDS: RESTASIS~ORDER AWAITING ACTION SCH ×2 (07:35→16:00)
--- NOTE | 2020-08-27 08:33 | XCELERA ---
[id number]
[2020-08-27] MEDS ORDERED: LORATADINE 10 MG TAB PO SCH (09:00)
[2020-08-27] MEDS ORDERED: SERTRALINE HCL 50 MG TABLET PO SCH (09:00)
[2020-08-27] MEDS ORDERED: OMEGA-3 (PURIFIED FISH OIL) 1 GM CAP PO SCH (09:00)
[2020-08-27] MEDS ORDERED: CHOLECALCIFEROL 1,000 UNITS 25 MCG TAB PO SCH (09:00)
[2020-08-27] MEDS ORDERED: MULTIVITAMIN TAB PO SCH (09:00)
[2020-08-27] MEDS: GABAPENTIN 400 MG CAP PO SCH ×2 (09:42→14:07)
[2020-08-27] MEDS: AMOXICILLIN/CLAVULANATE 875 MG TAB PO SCH ×2 (09:42→18:02)
[2020-08-27] MEDS: POLYETHYLENE (MIRALAX) 17 GM PACK PO SCH (09:43)
[2020-08-27] MEDS ORDERED: SENNA 8.6 MG TAB PO ONE (11:30)
[2020-08-27] MEDS ORDERED: POTASSIUM CHLORIDE 20 MEQ/15 ML UDC PO ONE ×2 (11:30→15:45)
--- NOTE | 2020-08-27 12:16 | Cardiology Progress Note ---
Date of Service August 27, 2020 Assessment & Plan (1) Acute respiratory failure with hypoxemia: 2. 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 Acute diastolic heart failure 4. Thrombocytopenia with epistaxis 5. Small pericardial effusion 6. Chronic left bundle-branch block 7. Hypertension 8. Anemia 9. Moderate mitral regurgitation Reviewed repeat echocardiogram from this morning. LV function unchanged. Now with moderate mitral regurgitation. Small to moderate pericardial effusion without signs of tamponade. IVC flat with normal respiratory variation. Congestion improved on exam and breathing comfortably on room air following IV diuretics yesterday. With patient's diastolic dysfunction, mitral regurgitation, pericardial disease suspect will be increasingly fluid sensitive on top of reduced respiratory reserve with active malignancy/pulmonary issues. Agree with discharge on low-dose standing Lasix. Previous issues with hypokalemia on diuretics and will need close monitoring of electrolytes. Discussed with patient importance of daily weights, salt restriction. From a cardiac standpoint okay with discharge today. Follow-up with me in 3 to 4 weeks with repeat echocardiogram to assess pericardial effusion. Admission and Anticipated Discharge Date Admission Date: August 26, 2020 Subjective Breathing improved today. Off oxygen. Denies chest pain. Denies palpitations. Telemetry reviewedsinus tachycardia. Questionable periods of atrial tachycardia. Review of Systems Review of Systems: All systems reviewed & are unremarkable except as noted in HPI & below Physical Exam Physical Exam: General: Comfortable sitting up on edge of bed. HEENT: Sclerae anicteric Lungs: Scant crackles at bases right greater than left Cardiac: Tachycardic, regular Abdomen: Soft, nontender, nondistended, positive bowel sounds. Extremities: Warm, well perfused, trace edema Neuro: Nonfocal Psych: Alert orient x3, normal affect and mood Results & Data ([facility]) Vital Signs (Past 12 Hours) Vital Signs Temp Pulse Pulse Resp BP Pulse Ox 08/27/20 11:34 98.2 F 120 H 18 169/84 H 98 08/27/20 07:54 97.7 F 105 H 16 169/81 H 98 08/27/20 07:00 112 H PG Care Time/CCT Total # of Minutes Spent Total Time Spent with Patient: Total time spent is greater than 50% in coordination of care (as documented) at patient's floor/unit and/or counseling patient: Coding Level of Care Code 44348 Subseq Hosp Care Lvl 3 Diagnoses Acute respiratory failure with hypoxemia J96.01
--- NOTE | 2020-08-27 12:45 | Electrocardiogram Report ---
Test Reason : Blood Pressure : / mmHG Vent. Rate : 104 BPM Atrial Rate : 104 BPM P-R Int : 144 ms QRS Dur : 116 ms QT Int : 388 ms P-R-T Axes : 069 -32 086 degrees QTc Int : 510 ms Sinus tachycardia with Premature atrial complexes Left axis deviation Low voltage QRS Left bundle branch block Abnormal ECG When compared with ECG of 26-AUG-2020 16:20, Sinus rhythm has replaced Atrial fibrillation Confirmed by Gamaliel Alvarez ([id number]) on 08/27/2020 12:45:21 PM Referred By: REFERRED SELF Confirmed By:Chino Alvarez
--- NOTE | 2020-08-27 12:47 | Electrocardiogram Report ---
Test Reason : Blood Pressure : / mmHG Vent. Rate : 120 BPM Atrial Rate : 120 BPM P-R Int : 142 ms QRS Dur : 118 ms QT Int : 352 ms P-R-T Axes : 057 -27 084 degrees QTc Int : 497 ms Sinus tachycardia Left bundle branch block Abnormal ECG When compared with ECG of 26-AUG-2020 17:08, (unconfirmed) Premature atrial complexes are no longer Present Confirmed by Gamaliel Alvarez ([id number]) on 08/27/2020 12:47:06 PM Referred By: REFERRED SELF Confirmed By:Chino Alvarez
--- NOTE | 2020-08-27 15:02 | Electrocardiogram Report ---
Test Reason : Blood Pressure : / mmHG Vent. Rate : 109 BPM Atrial Rate : 109 BPM P-R Int : 168 ms QRS Dur : 116 ms QT Int : 392 ms P-R-T Axes : 070 -22 046 degrees QTc Int : 527 ms Poor data quality, interpretation may be adversely affected Sinus tachycardia Low voltage QRS Left bundle branch block Prolonged QT Abnormal ECG Confirmed by Gamaliel Alvarez ([id number]) on 08/27/2020 3:02:19 PM Referred By: REFERRED SELF Confirmed By:Chino Alvarez
[2020-08-27] MEDS ORDERED: HEPARIN 100 UNIT/ML 5ML FLUSH FLUSH ONE (19:27)
[2020-08-27] MEDS ORDERED: SIMVASTATIN 20 MG TAB PO SCH (21:00)
--- NOTE | 2020-08-27 22:00 | Discharge Summary ---
Date of Service August 27, 2020 Admission HPI Per Admitting Provider Patient is a 74-year-old female with a past medical history of leiomyosarcoma with metastatic lesions to her lungs, peripheral neuropathy, recurrent epistaxis secondary to chemotherapy for leiomyosarcoma, recurrent thrombocytopenia secondary to her chemotherapy, left bundle branch block, osteoarthritis who presented to the emergency department for evaluation after becoming short of breath and hypoxic status post nasal packing. Patient is on a chemotherapy regimen which is frequently resulted in her developing significant thrombocytopenia, in the past she has had notable's bleeds that required packing. Recently she has noticed increased shortness of breath with activity, other than that she was in her usual state of health when she experienced an episode of epistaxis approximately 24 hours ago. She contacted her ENT, who recommended she obtain lab work and have her nose packed. Lab work demonstrated a platelet value of 76, the patient had her nose packed and tolerated the procedure well. Immediately after the procedure she began to become short of breath and hypoxic to the emergency department for further care. In the emergency department an chest x-ray was obtained demonstrating flash pulmonary edema and ECG was obtained demonstrating her left bundle branch block and a questionable anterior ME. CBC demonstrated a white count of 2.62, hemoglobin of 9.8, platelets of 73, INR 1.1, CMP showed a sodium of 131, potassium of 3.4, creatinine of 0.49, glucose of 102, calcium 8.4, liver enzymes were normal, trop.023, Covid negative. Patient was treated aggressively for her findings, she was given Nitropaste, 40 mg IV Lasix, 10 mg IV Lopressor, DuoNeb's and placed on oxygen mask. Cardiology was consulted for the ECG findings, they performed a bedside echo, and did not feel the patient met criteria for catheterization. Recommending for further observation evaluation and management. The patient subsequently stabilized and the primary team was consulted for admission. Patient related history similar to that noted above. She stated she has never had an episode of flash pulmonary edema before. However recently she received cryoablation at the [facility], during that admission the doctors were also concerned about an anterior ME superimposed on her lower bundle branch block. They made no significant intervention, and did not mention it in her discharge paperwork per the patient. She stated recently she has been having increasing shortness of breath with exertion, has some leg swelling intermittently, more since her recent cryoablation, and denies a history of congestive heart failure. She will be admitted for evaluation and management of her suspicious EKG, resolution of her acute hypoxic respiratory distress, and further evaluation and management of her flash pulmonary edema. Principal Diagnosis Acute hypoxic respiratory failure secondary to acute chf exacerbation with underlying metastatic disease to lung Discharge Exam Constitutional WD/WN, vitals as above Respiratory normal respiratory effort, lungs clear to auscultation Cardiovascular Rate/Rhythm: regular rhythm and + tachycardic mild LE edema Gastrointestinal (Abdomen) normal bowel sounds, soft, nontender, no hepatosplenomegaly Discharge Data Allergies Allergy/AdvReac Type Severity Reaction Status Date / Time selina Allergy Intermediate HIVES Verified 08/26/20 19:41 Sulfa (Sulfonamide Allergy Intermediate HIVES Verified 08/26/20 19:41 Antibiotics) Consultations 08/26/20 19:21 ED Decision to Admit Stat 08/26/20 22:16 Consult Cardiology Routine Consult Case Management - Discharge Planning Routine Hospital Course (1) Acute respiratory failure with hypoxemia: Patient is a 74-year-old female with a past medical history of le iomyosarcoma with metastatic lesions to her lungs, peripheral neuropathy, recurrent epistaxis secondary to chemotherapy for leiomyosarcoma, recurrent thrombocytopenia secondary to her chemotherapy, left bundle branch block, osteoarthritis who presented to the emergency department for evaluation after becoming short of breath and hypoxic status post nasal packing. #Acute hypoxic respiratory failure secondary to fluid overload from IV hydration(acute diastolic heart failure) and metastatic disease to lung/pleural effusion Became hypoxic and short of breath immediately after nasal packing for recurrent epistaxis secondary to thrombocytopenia secondary to her chemotherapy. Chest x- ray demonstrated flash pulmonary edema, EKG with concern of anterior ME. Treated aggressively with 40 mg of IV Lasix, 10 mg of IV Lopressor, Nitropaste, duo nebs, and oxygen with significant improvement. Cardiology consulted in ED. Bedside echo determining no need for emergent maddie terization and to monitor overnight. -Kept on PCU - in am SaO2 98% on RA. -Formal echocardiogram with no WMA and LV function unchanged - now with moderate mitral regurgitation. -small pericardial effusion with no tamponade -Resumed home metoprolol succinate 50 mg every afternoon -Received IV 40 mg furosemide in am. -K replaced. -Euvolemic on discharge -Home on low dose standing lasix to use prn weight gain. KCL rx given as well. -Outpatient cardio follow up to assess pericardial effusion. #Epistaxis secondary to chemotherapy complicated by thrombocytopenia Patient has recurrent episodes of epistaxis and thrombocytopenia secondary to her chemotherapy. Traditionally these episodes are treated with nasal packing without additional issue. -ENT consulted -Augmentin x7 days -Nasal saline spray 4 times daily -Up in the clinic next Wednesday #Prolonged QTc - >500 Worsened likely due to hypokalemia -recheck EKG after K replacement - on discharge with improved OTc at 480 #HTN and sinus tachycardia Elevated BP at the time of discharge with sinus tachycardia -CT chest on admission ruled out for PE -Likley sec to underlying anxiety -continued home dose of metoprolol #Peripheral neuropathy due to chemotherapy -Continued gabapentin for 400 mg p.o. 3 times daily #Allergies -Continued loratadine p.o. twice daily #Anxiety depression -Continued sertraline 50 mg daily #Constipation -Continued MiraLAX #Hyperlipidemia -Continued simvastatin (2) Acute on chronic diastolic (congestive) heart failure: (3) Thrombocytopenia: (4) Epistaxis: (5) Leiomyosarcoma: (6) LBBB (left bundle branch block): (7) Hypertension: (8) Anemia: (9) Anxiety: Total Time Total Time Spent Total Time Spent (In Minutes): 45min Discharge Plan Discharge Items Patient Disposition: Home - Self-Care Reason For Visit: ACUTE HYPOXIC RESP FAILURE SECONDARY TO FLASH PULM Discharge Diagnosis: Acute hypoxic respiratory failure secondary to fluid overload/worsening metastatic leiomyosarcoma Epistaxis Condition on Discharge: Fair Activity: Resume your previous activity Non-emergency contact: Primary Care Provider Call non-emergency contact if: your symptoms worsen Follow-up/Referrals: Janelle Lima MD [Primary Care Provider] - Diet: Low Sodium (2gm) Addtl Attending Provider Instructions: Fluid overload -- You have been started on lasix (furosemide) to take daily to prevent fluid from accumulating. You have been on it in past. Since lasix can decrease potassium level, prescription of potassium chloride has been sent to pharmacy as well to take one tablet daily Follow up with cardiology - please call their office to set up appointment. Nose bleed -- You have packing in your right nostril which will be removed when you see Dr. Beaulieu on 09/03/2020. Take augmentin twice a day for 7 days. Start nasal saline spray 4 times a day. Follow up with family physician in one week Pending Studies at Discharge: No Stand-Alone Forms: My [facility] [employer], Smoking Cessation Medications and DC Order Prescriptions: New amoxicillin-pot clavulanate [Augmentin] 875-125 mg Tablet 1 tab PO BIDM Qty: 14 RF: 0 furosemide [Lasix] 20 mg tablet 20 mg PO DAILY Qty: 30 RF: 0 potassium chloride 10 mEq tablet extended release 10 meq PO DAILY Qty: 30 RF: 0 Continued multivitamin [Multiple Vitamins] tablet 1 tab PO DAILY RF: 0 omega-3 fatty acids 1,000 mg capsule 1,000 mg PO DAILY RF: 0 calcium carbonate 600 mg calcium (1,500 mg) tablet 600 mg PO .BID/3XW RF: 0 cyclosporine [Restasis] 0.05 % dropperette 1 drops OP Q12H RF: 0 Prolia 60 mg/mL syringe 60 mg SQ Q6MO RF: 0 sertraline 50 mg tablet 50 mg PO DAILY Qty: 90 RF: 3 metoprolol succinate [Toprol XL] 50 mg tablet extended release 24 hr 50 mg PO DAILY Qty: 90 RF: 3 simvastatin [Zocor] 10 mg tablet 20 mg PO QPM Qty: 180 RF: 3 cholecalciferol (vitamin D3) 50 mcg (2,000 unit) capsule 50 mcg PO DAILY RF: 0 mometasone 50 mcg/actuation spray,non-aerosol 1 spray intranasal DAILY PRN (Reason: Allergic Symptoms) Qty: 17 RF: 2 gabapentin 400 mg Tablet 400 mg PO TID RF: 0 polyethylene glycol 3350 [Miralax] 17 gram Powder In Packet 17 g PO DAILY PRN (Reason: Constipation) RF: 0 ondansetron 8 mg Tablet,Disintegrating 8 mg PO Q12H PRN (Reason: Nausea) RF: 0 loratadine [Claritin] 10 mg Tablet 10 mg PO BID RF: 0 miscellaneous throat product 10 ml buccal TID PRN (Reason: Mouth Irritation) RF: 0 Discontinued naproxen 500 mg tablet 500 mg PO DAILY PRN (Reason: pain) Qty: 30 RF: 3 Discharge Orders: Discharge Order (Routine); Ordered 08/27/20 Ordered By: Maureen Cameron Admission Data Admit Date/Time: 08/26/20 21:06 Attending Provider: Maureen Cameron Admit Provider: David,Lai I. Primary Care Provider: Janelle Lima V. Other Providers: Makayla Hernandez ; Augusto Jeronimo ; Gary Pittman ; Jose E Alvarenga ; Leroy Richmond ; Celestine Ward ; Arnulfo Dozier Jr ; Jerman Cronin ; Rajwinder Harris ; Daiana Clay ; Doc Raimrez ; Doc Alvarez ; Yuri Curtis ; Terrance Ndiaye ; Tania Ervin ; Estefany Madden ; Dimitris Newman ; David Mcfadden ; Nitin Kaufman Other Interventions: Discharge Summary Assessment (RN) Last Done: 08/27/20 19:09
[2020-08-28] MEDS ORDERED: CALCIUM CARBONATE 1250MG TAB PO SCH (09:00)
--- NOTE | 2020-08-28 14:38 | Electrocardiogram Report ---
Test Reason : Blood Pressure : / mmHG Vent. Rate : 120 BPM Atrial Rate : 120 BPM P-R Int : 138 ms QRS Dur : 110 ms QT Int : 340 ms P-R-T Axes : 103 -27 075 degrees QTc Int : 480 ms Sinus tachycardia Low voltage QRS Possible Anterolateral infarct (cited on or before 27-AUG-2020) Abnormal ECG When compared with ECG of 27-AUG-2020 03:01, Non-specific change in ST segment in Lateral leads Confirmed by Gamaliel Alvarez ([id number]) on 08/28/2020 2:38:24 PM Referred By: REFERRED SELF Confirmed By:Chino Alvarez
== END 2020-08-27 20:34 | disposition home or self-care (01) | DRG 291 ==
LOC: ED 14:21 → SUATTDRO 21:06 → 2N 21:06

== ENCOUNTER 2020-09-25 17:28 | Inpatient (IN) ==
[2020-09-25] MEDS ORDERED: WATER, STERILE 50 ML, TRANEXAMIC ACID ORAL RINSE 5,000 MG, BARCODE IDENTIFIER 1 EA MT ONE (17:49)
--- NOTE | 2020-09-25 17:54 | Emergency Department Note ---
History of Present Illness General Chief complaint: Bleeding Stated complaint: nose bleed Time Seen by Provider: 09/25/20 17:41 Source: patient History of Present Illness Provider complaint: Bleeding from mouth Onset (ago): hour(s) Location: mouth Pain Consistency: + constant Quality: + other (Bleeding from gums) Relieved By: + none Associated symptoms: + weakness and + other (Epistaxis 2 weeks ago); no chest pain, no cough, no fever/chills, no headaches, no nausea/vomiting and no shortness of breath This is a 74-year-old female with a history of leiomyosarcoma undergoing chemotherapy, with her last dose on Wednesday, presenting with bleeding from her mouth that started sometime around lunchtime. She states she was not eating at the time. The bleeding was spontaneous. It is coming from all of her gums from below and above. No alleviating factors. She is spitting out large clots. She has some mild associated weakness with it. She is not on any blood thinners. She states that she was having nosebleeds about 2 weeks ago which have not rec urred. She denies any black or bloody stools or headaches. She denies any fever, cough or cold symptoms, chest pain, shortness of breath, easy bruising or bleeding, abdominal pain, vomiting or diarrhea. She does state that she feels a little weak since this started. She denies any injury or trauma to her gums or teeth. She denies any pain to her mouth. Home Medications Medication Instructions Recorded Confirmed Type calcium carbonate 600 mg calcium 600 mg PO .BID/3XW tab 06/27/18 09/25/20 History (1,500 mg) tablet multivitamin 1 tab PO DAILY 06/27/18 09/25/20 History omega-3 fatty acids 1,000 mg 1,000 mg PO DAILY 06/27/18 09/25/20 History capsule cyclosporine 0.05 % eye drops in a 1 drops OP Q12H 06/30/18 09/25/20 History dropperette denosumab 60 mg/mL subcutaneous 60 mg SQ Q6MO ml 06/14/19 09/25/20 History syringe sertraline 50 mg tablet 50 mg PO DAILY #90 tab 01/11/20 09/25/20 Rx metoprolol succinate 50 mg 50 mg PO DAILY #90 tab 05/27/20 09/25/20 Rx tablet,extended release 24 hr simvastatin 10 mg tablet 20 mg PO QPM #180 tab 05/27/20 09/25/20 Rx cholecalciferol (vitamin D3) 50 50 mcg PO DAILY 06/14/20 09/25/20 History mcg (2,000 unit) capsule loratadine [Claritin] 10 mg PO BID 07/17/20 09/25/20 History ondansetron 8 mg PO Q12H PRN 07/17/20 09/25/20 History polyethylene glycol 3350 [Miralax] 17 g PO DAILY PRN 07/17/20 09/25/20 History mometasone 50 mcg/actuation nasal 1 spray INTRANASAL DAILY PRN #17 g 07/31/20 09/25/20 Rx spray miscellaneous throat product 10 ml BUCCAL TID PRN 08/26/20 09/25/20 History furosemide [Lasix] 20 mg PO DAILY #30 tab 08/27/20 09/25/20 Rx potassium chloride 10 meq PO DAILY #30 tab 08/27/20 09/25/20 Rx fentanyl 12 mcg/hr transdermal 1 patch TRANSDERMAL Q72H 09/12/20 09/25/20 History patch gabapentin 400 mg PO TID 09/25/20 09/25/20 History Allergies Allergy/AdvReac Type Severity Reaction Status Date / Time selina Allergy Intermediate HIVES Verified 09/25/20 18:40 Sulfa (Sulfonamide Allergy Intermediate HIVES Verified 09/25/20 18:40 Antibiotics) Past Med/Surg History Medical History Cancer Herpes zoster Hypercholesteremia Left-sided chest wall pain Lumbar spinal stenosis Lung nodule Peripheral neuropathy due to chemotherapy Syncope Surgical History H/O colonoscopy H/O dilation and curettage H/O hysterectomy with oophorectomy H/O oophorectomy H/O oral surgery H/O: hysterectomy History of back surgery History of cataract surgery History of shoulder surgery History of sinus surgery Hx of appendectomy Hx of tonsillectomy Status post cryoablation Buttocks Family History Mother Lymphoma Father Alzheimer disease Unknown Uterine cancer Grandfather (Maternal) Myocardial infarction Denies family history of Ovarian cancer Prostate cancer Breast cancer Colorectal cancer Social History Smoking Status: Never smoker Hx Alcohol Use: No Hx Substance Use: No Preferred Language: Uzbek Communication Ability: Effective Hearing Ability: Use of Hearing Aid Gut Sorter Required: No Beliefs That Will Affect Care: None marital status: Current Living Situation: Spouse current occupational status: retired Feels Safe at Home: Yes Dental Care, Regularly: Yes Physical Activity Frequency: 1-2 Times per Week Physical Activity Frequency Comment: swimming and walking Seatbelt Use: always Sunscreen Use: Yes (sometimes) Assistive Devices: None Review of Systems See HPI for pertinent positives & negatives. and A total of 10 systems reviewed and were otherwise negative Physical Exam Vital Signs Vital Signs - 24 hr 09/25/20 17:30 09/25/20 19:00 09/25/20 19:01 Temperature 36.5 C Temperature Source Temporal Artery Scan Pulse Rate 85 109 H 110 H Pulse Rate from SpO2 Sensor 102 H Respiratory Rate 19 20 21 Blood Pressure 153/75 H 146/82 H Blood Pressure Mean 101 103 Pulse Oximetry 98 93 Oxygen Delivery Method Room Air Room Air Sepsis Recent Fever Within 48 Hours No Sepsis New/Unexplained Change in Mental Status N/A Sepsis Action Taken by Nursing No Action Required Constitutional: Vital signs reviewed. Eyes: Pupils are equal round reactive to light. Conjunctiva are noninjected. ENT: Pharynx is clear without erythema or exudate. Mucous membranes are moist. Blood throughout her mouth and from the gums. No laceration is identifiable. Clots in the mouth as well. Neck supple without meningeal signs. Respiratory: Clear to auscultation bilaterally. Breath sounds are equal bilaterally. Cardiovascular: Regular rate and rhythm. No rubs or gallops. GI: Soft, nondistended and nontender. Bowel sounds are present. Musculoskeletal: No peripheral edema. No lower extremity tenderness. Integumentary: No cyanosis. or jaundice. Neurological: The patient is awake and alert. No focal deficits. Psychiatric: Anxious. Course Administered Medications Discontinued Medications Sterile Water 50 ml/Tranexamic Acid 5,000 mg/BARCODE IDENTIFIER 1 ea 0 ml MT ONE ONE Stop: 09/25/20 17:50 Last Admin: 09/25/20 18:19 Dose: 10 ml Documented by: [id number] Critical Care Time Critical Care Time: Yes Total Critical Care Time: 40 I have personally spent approximately 40 minutes of critical care time in the direct management of this patient. This includes bedside care, interpretation of diagnostic studies, and testing, discussion with consultants, patient, and family members, and other required patient management activities. These minutes are in excess of all separately billable procedures. Medical Decision Making Differential Diagnosis Thrombocytopenia, bleeding diathesis, anemia, gingival hemorrhage, laceration Medical Records Attestation: I reviewed the patient's medical records. I did perform a limited focused review of portions of the patient's old chart on the electronic medical record. The patient had blood work on the of this month which showed a platelet count of 63 and hemoglobin of 8.9. Home Medications Current Medication List: was personally reviewed by me Laboratory Data Attestation: I reviewed the patient's lab results. Result diagrams: 09/25/20 18:06 09/25/20 18:06 Lab Results 09/25/20 09/25/20 09/25/20 Range/Units 18:06 18:06 18:06 WBC 1.35 L (4.8-10.8) K/uL RBC 2.14 L (4.2-5.4) M/uL Hgb 6.9 L* (12.0-16.0) g/dL Hct 20.6 L* (37-47) % MCV 96.3 (80-100) fL MCH 32.2 (25-34) pg MCHC 33.5 (32-36) g/dL RDW Std Deviation 60.4 H (36.4-46.3) fL RDW Coeff of Zhao 17.2 H (11.5-14.5) % Plt Count 2 L* (130-400) K/uL Absolute Nucleated RBC 0.02 H (0-0) K/uL Nucleated RBC % (auto) 1.3 % Neutrophils % (Manual) 80.5 % Lymphocytes % (Manual) 8.0 % Monocytes % (Manual) 11.5 % Neutrophils # (Manual) 1.09 L (1.4-6.5) K/uL Total Absolute Neuts 1.09 L (1.4-6.5) K/uL Lymphocytes # (Manual) 0.11 L (1.2-3.4) K/uL Total Abs Lymphocytes 0.11 L (1.2-3.4) K/uL Monocytes # (Manual) 0.16 (0.11-0.59) K/uL Toxic Granulation 2+ Dohle Bodies 1+ Platelet Estimate SIGNIFIC DECREASED (Normal) PT 13.3 H (9.0-12.0) Seconds INR 1.3 H (0.9-1.1) APTT 28.2 (21.0-31.0) Seconds PTT Ratio 1.0 Sodium (136-145) mmol/L Potassium (3.5-5.1) mmol/L Chloride (98-107) mmol/L Carbon Dioxide (21-32) mmol/L Anion Gap (3-11) BUN (7-18) mg/dl Creatinine (0.6-1.2) mg/dl Est Cr Clr Drug Dosing Est GFR ( Amer) Est GFR (Non-Af Amer) BUN/Creatinine Ratio (10-20) Glucose (70-99) mg/dl Calcium (8.5-10.1) mg/dl Total Bilirubin (0.2-1) mg/dl AST (15-37) U/L ALT (12-78) U/L Alkaline Phosphatase (45-117) U/L Total Protein (6.4-8.2) gm/dl Albumin (3.4-5.0) gm/dl Globulin (2.5-4.0) gm/dl Albumin/Globulin Ratio (0.9-2) COVID-19 Eval Order SARS-CoV-2, RNA, NAAT (NEGATIVE) Blood Type O Positive Antibody Screen NEGATIVE Crossmatch See Detail 09/25/20 09/25/20 09/25/20 Range/Units 18:06 18:35 18:35 WBC (4.8-10.8) K/uL RBC (4.2-5.4) M/uL Hgb (12.0-16.0) g/dL Hct (37-47) % MCV (80-100) fL MCH (25-34) pg MCHC (32-36) g/dL RDW Std Deviation (36.4-46.3) fL RDW Coeff of Zhao (11.5-14.5) % Plt Count (130-400) K/uL Absolute Nucleated RBC (0-0) K/uL Nucleated RBC % (auto) % Neutrophils % (Manual) % Lymphocytes % (Manual) % Monocytes % (Manual) % Neutrophils # (Manual) (1.4-6.5) K/uL Total Absolute Neuts (1.4-6.5) K/uL Lymphocytes # (Manual) (1.2-3.4) K/uL Total Abs Lymphocytes (1.2-3.4) K/uL Monocytes # (Manual) (0.11-0.59) K/uL Toxic Granulation Dohle Bodies Platelet Estimate (Normal) PT (9.0-12.0) Seconds INR (0.9-1.1) APTT (21.0-31.0) Seconds PTT Ratio Sodium 132 L (136-145) mmol/L Potassium 3.4 L (3.5-5.1) mmol/L Chloride 99 (98-107) mmol/L Carbon Dioxide 20 L (21-32) mmol/L Anion Gap 13.0 H (3-11) BUN 20 H (7-18) mg/dl Creatinine 0.52 L (0.6-1.2) mg/dl Est Cr Clr Drug Dosing Not Reportable Est GFR ( Amer) 107.6 Est GFR (Non-Af Amer) 92.8 BUN/Creatinine Ratio 39.1 H (10-20) Glucose 125 H (70-99) mg/dl Calcium 8.7 (8.5-10.1) mg/dl Total Bilirubin 0.8 (0.2-1) mg/dl AST 36 (15-37) U/L ALT 21 (12-78) U/L Alkaline Phosphatase 88 (45-117) U/L Total Protein 5.8 L (6.4-8.2) gm/dl Albumin 2.5 L (3.4-5.0) gm/dl Globulin 3.3 (2.5-4.0) gm/dl Albumin/Globulin Ratio 0.8 L (0.9-2) COVID-19 Eval Order Covid19 [facility] SARS-CoV-2, RNA, NAAT NEGATIVE (NEGATIVE) Blood Type Antibody Screen Crossmatch MDM Narrative I did evaluate the patient as noted above. The patient is presenting with bleeding from her mouth since noon today. There is no injury. She denies any pain to her mouth. She has oozing from her gums throughout her mouth. Given her prior platelet count I suspect that her platelets are low today. I did treat her with TXA mouth rinse. IV access was established. I did place an order for continuous cardiac monitoring. The monitor showed normal sinus rhythm at a rate of 99 bpm. I did order and review the patient's blood work as noted in the electronic medical record. She is pancytopenic with a white blood cell count of 1.3, hemoglobin of 6.9 and platelet count of 2. Electrolytes demonstrate hypokalemia and hyponatremia. LFTs are unremarkable. Covid testing is negative. The patient was placed in neutropenic isolation. I did discuss the test results with her and did obtained informed consent for blood transfusion. I did order 2 units of packed RBCs leukocyte reduced and irradiated. I also ordered 2 units of platelets and 2 units of FFP to be transfused. I did reassess the patient several times. She remained hemodynamically stable although became more tachycardic. Her bleeding seemed to improve with the TXA rinse. I did discuss case with Dr. Wilkins and the lead case manager. The patient was admitted to the hospital for further care and evaluation. Impression & Plan Pancytopenia, Oral hemorrhage, Hyponatremia, Hypokalemia Discharge Plan Visit Data Chief Complaint: Bleeding Stated Complaint: nose bleed ED Provider: Patricio Bobby Discharge Problem: Pancytopenia, Oral hemorrhage, Hyponatremia, Hypokalemia Patient Disposition: Admitted As Inpatient Discharge Instructions Interventions: ED Discharge Assessment Last Done: 09/25/20 19:58
[2020-09-25 18:26] LABS: Hematocrit (blood only) 20.6 % (37-47); Hemoglobin 6.9 g/dL (12.0-16.0); Mean Corpuscular Hemoglobin 32.2 pg (25-34); Mean Corpuscular Hgb Conc 33.5 g/dL (32-36); Mean Corpuscular Volume 96.3 fL (80-100); RDW Coefficient of Variation 17.2 % (11.5-14.5); RDW Standard Deviation 60.4 fL (36.4-46.3); Red Blood Count 2.14 M/uL (4.2-5.4); White Blood Count 1.35 K/uL (4.8-10.8)
[2020-09-25 18:27] LABS: INR 1.3 (0.9-1.1); Partial Thromboplastin Time 28.2 Seconds (21.0-31.0); Prothrombin Time 13.3 Seconds (9.0-12.0)
[2020-09-25] MEDS ORDERED: SODIUM CHLORIDE 0.9% 250 ML IV PRN ×2 (18:27→18:34)
[2020-09-25 18:28] LABS: Nucleated RBC # (auto) 0.02 K/uL (0-0); Nucleated RBC % (auto) 1.3 %; Platelet Count 2 K/uL (130-400)
[2020-09-25 18:31] LABS: Alanine Aminotransferase 21 U/L (12-78); Albumin Level 2.5 gm/dl (3.4-5.0); Aspartate Aminotransferase 36 U/L (15-37); BUN Creatinine Ratio 39.1 (10-20); Blood Urea Nitrogen 20 mg/dl (7-18); Calcium 8.7 mg/dl (8.5-10.1); Carbon Dioxide 20 mmol/L (21-32); Chloride 99 mmol/L (98-107); Est GFR (African American) 107.6; Est GFR (Non-African American) 92.8; Glucose 125 mg/dl (70-99); Potassium 3.4 mmol/L (3.5-5.1); Sodium 132 mmol/L (136-145)
[2020-09-25 18:33] LABS: Albumin Globulin Ratio 0.8 (0.9-2); Alkaline Phosphatase 88 U/L (45-117); Bilirubin,Total 0.8 mg/dl (0.2-1); Globulin 3.3 gm/dl (2.5-4.0); Total Protein 5.8 gm/dl (6.4-8.2)
[2020-09-25 18:42] LABS: ALC (manual) 0.11 K/uL (1.2-3.4); ANC (manual) 1.09 K/uL (1.4-6.5); Dohle Bodies 1+; Lymphocytes # (manual) 0.11 K/uL (1.2-3.4); Monocytes # (manual) 0.16 K/uL (0.11-0.59); Monocytes % (manual) 11.5 %; Neutrophils # (manual) 1.09 K/uL (1.4-6.5); Neutrophils % (manual) 80.5 %; Platelet Estimate SIGNIFIC DECREASED (Normal); Toxic Granulation 2+
--- NOTE | 2020-09-25 19:25 | History & Physical Report ---
Date of Service September 25, 2020 Assessment & Plan (1) Pancytopenia: Likely related to recent chemo Spontaneous gum bleeding ED has ordered for 2 units each of PRBC, platelets, and FFP Hb 6.9, platelets 2 Repeat in AM Hem/onc c/s pending Next chemo is due / Holding omega 3 fish oil (2) CHF (congestive heart failure): PRN lasix (3) Leiomyosarcoma: Follows with [facility] (4) Hypertension: continue home meds VSS (5) Hypercholesterolemia: continue home meds (6) Peripheral neuropathy due to chemotherapy: Gabapentin (7) DVT prophylaxis: SCDs given above History of Present Illness Primary Care Provider: Janelle Lima MD 74 y/o F c/o gum bleeding. Pt states she has had nose bleeds a few weeks ago, but had not had one over the last week. She had sudden onset of gum bleeding earlier today, so she came to the ED as it would not stop and was quite profuse. Pt states she has not been eating much due to no appetite and nausea. No quique emesis, but she states she retches often. She states she has been eating only soup the last week. Pt is currently receiving chemo for leiomyosarcoma. Her last tx was 09/17. Her next tx is 10/01. Pt denies fever, SOB, chest pain, abd pain, n/v/c/d, LE pain. She does have mild LE swelling at baseline. She takes lasix PRN, but has not had it since her prior admission in July. Allergies Allergy/AdvReac Type Severity Reaction Status Date / Time selina Allergy Intermediate HIVES Verified 09/25/20 18:40 Sulfa (Sulfonamide Allergy Intermediate HIVES Verified 09/25/20 18:40 Antibiotics) Home Medications Medication Instructions Recorded Confirmed Type calcium carbonate 600 mg calcium 600 mg PO .BID/3XW tab 06/27/18 09/25/20 History (1,500 mg) tablet multivitamin 1 tab PO DAILY 06/27/18 09/25/20 History omega-3 fatty acids 1,000 mg 1,000 mg PO DAILY 06/27/18 09/25/20 History capsule cyclosporine 0.05 % eye drops in a 1 drops OP Q12H 06/30/18 09/25/20 History dropperette denosumab 60 mg/mL subcutaneous 60 mg SQ Q6MO ml 06/14/19 09/25/20 History syringe sertraline 50 mg tablet 50 mg PO DAILY #90 tab 01/11/20 09/25/20 Rx metoprolol succinate 50 mg 50 mg PO DAILY #90 tab 05/27/20 09/25/20 Rx tablet,extended release 24 hr simvastatin 10 mg tablet 20 mg PO QPM #180 tab 05/27/20 09/25/20 Rx cholecalciferol (vitamin D3) 50 50 mcg PO DAILY 06/14/20 09/25/20 History mcg (2,000 unit) capsule loratadine [Claritin] 10 mg PO BID 07/17/20 09/25/20 History ondansetron 8 mg PO Q12H PRN 07/17/20 09/25/20 History polyethylene glycol 3350 [Miralax] 17 g PO DAILY PRN 07/17/20 09/25/20 History mometasone 50 mcg/actuation nasal 1 spray INTRANASAL DAILY PRN #17 g 07/31/20 09/25/20 Rx spray miscellaneous throat product 10 ml BUCCAL TID PRN 08/26/20 09/25/20 History furosemide [Lasix] 20 mg PO DAILY #30 tab 08/27/20 09/25/20 Rx potassium chloride 10 meq PO DAILY #30 tab 08/27/20 09/25/20 Rx fentanyl 12 mcg/hr transdermal 1 patch TRANSDERMAL Q72H 09/12/20 09/25/20 History patch gabapentin 400 mg PO TID 09/25/20 09/25/20 History Past Med/Surg History Medical History Cancer Herpes zoster Hypercholesteremia Left-sided chest wall pain Lumbar spinal stenosis Lung nodule Peripheral neuropathy due to chemotherapy Syncope Surgical History H/O colonoscopy H/O dilation and curettage H/O hysterectomy with oophorectomy H/O oophorectomy H/O oral surgery H/O: hysterectomy History of back surgery History of cataract surgery History of shoulder surgery History of sinus surgery Hx of appendectomy Hx of tonsillectomy Status post cryoablation Buttocks Family History Mother Lymphoma Father Alzheimer disease Unknown Uterine cancer Grandfather (Maternal) Myocardial infarction Denies family history of Ovarian cancer Prostate cancer Breast cancer Colorectal cancer Social History Smoking Status: Never smoker Hx Alcohol Use: No Hx Substance Use: No Preferred Language: Palestinian Communication Ability: Effective Hearing Ability: Use of Hearing Aid 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 Beliefs That Will Affect Care: None marital status: Current Living Situation: Spouse current occupational status: retired Feels Safe at Home: Yes Dental Care, Regularly: Yes Physical Activity Frequency: 1-2 Times per Week Physical Activity Frequency Comment: swimming and walking Seatbelt Use: always Sunscreen Use: Yes (sometimes) Assistive Devices: Cane and Glasses Review of Systems Review of Systems: Pertinent positives and negatives reviewed in HPI--all others negative Physical Exam Constitutional: WD/WN, vitals as above Eyes: normal visual lockett by confrontation and + anicteric sclerae ENMT: Signs of bleeding noted, but no obvious current bleeding Neck: normal visual inspection and trachea midline Respiratory: normal respiratory effort, lungs clear to auscultation Cardiovascular: Rate/Rhythm: regular rate and regular rhythm Gastrointestinal (Abdomen): Inspection/Auscultation: abdomen not distended Percussion/Palpation: abdomen soft; abdomen nontender Musculoskeletal: Head/Neck/Chest: normocephalic and head atraumatic negative for edema, peripheral pulses intact Skin: no rashes, warm and dry Neurologic: awake; not confused Speech / Cognition: normal speech Psychiatric: A+Ox3, euthymic affect Results & Data Results & Data ([facility]) Vital Signs (Past 12 Hours) Vital Signs Temp Pulse Resp BP Pulse Ox 09/25/20 19:01 110 H 21 146/82 H 93 09/25/20 19:00 109 H 20 09/25/20 17:30 36.5 C 85 19 153/75 H 98 Code Status & VTE Plan Code Status Full code, although pt states no prolonged mechanical life support, feeding tubes, etc VTE Prophylaxis Plan VTE Prophylaxis will be ordered: Yes PG Care Time/CCT Total # of Minutes Spent Total Time Spent with Patient: Total time spent is greater than 50% in coordination of care (as documented) at patient's floor/unit and/or counseling patient: Coding Level of Care Code 10864 Initial Inpt Care Lvl 3 Diagnoses Pancytopenia D61.818 CHF (congestive heart failure) I50.9 Heart failure chronicity: acute Heart failure type: unspecified Leiomyosarcoma C49.9 Hypertension I10 Hypercholesterolemia E78.00 Peripheral neuropathy due to chemotherapy G62.0; T45.1X5A DVT prophylaxis Z29.9 (1) CHF (congestive heart failure) Heart failure chronicity: acute Heart failure type: unspecified Qualified Code(s): I50.9 - Heart failure, unspecified
[2020-09-25] MEDS ORDERED: ONDANSETRON 8MG OD TAB PO PRN (20:27)
[2020-09-25] MEDS ORDERED: ONDANSETRON INJ 2 MG/ML 2 ML VIAL IV PRN (20:27)
[2020-09-25] MEDS ORDERED: POLYETHYLENE (MIRALAX) 17 GM PACK PO PRN (20:27)
[2020-09-25] MEDS ORDERED: ACETAMINOPHEN 325 MG TAB PO PRN (20:27)
[2020-09-25] MEDS ORDERED: MAGNESIUM HYDROXIDE SUSP 30 ML UDC PO PRN (20:27)
[2020-09-25] MEDS ORDERED: FUROSEMIDE 20 MG TAB PO PRN (20:27)
[2020-09-25] MEDS ORDERED: FLUTICASONE PROPIONATE NA SPR 16 GM BTL PRN (20:42)
[2020-09-25] MEDS ORDERED: SIMVASTATIN 20 MG TAB PO SCH (21:00)
[2020-09-25] MEDS ORDERED: CALCIUM CARBONATE 1250MG TAB PO SCH (21:00)
[2020-09-25] MEDS ORDERED: NSS + 20MEQ KCL 20 MEQ/1,000 ML BAG IV SCH (21:00)
[2020-09-25] MEDS ORDERED: fentaNYL 12 MCG/HR TDSY TD SCH (21:00)
[2020-09-25] MEDS ORDERED: CHLORASEPTIC 1.4% SOLN 180 ML BTL MT PRN (21:04)
[2020-09-25] MEDS: LORATADINE 10 MG TAB PO SCH (21:34)
[2020-09-25] MEDS: GABAPENTIN 400 MG CAP PO SCH (21:35)
[2020-09-25] MEDS ORDERED: HEPARIN 100 UNIT/ML 5ML FLUSH FLUSH PRN (22:58)
[2020-09-25] MEDS ORDERED: Nursing to Pharmacy Communication SCH (23:15)
[2020-09-25] MEDS: CHECK fentaNYL PATCH PLACEMENT SCH (23:59)
[2020-09-26 08:06] LABS: Hematocrit (blood only) 14.4 % (37-47); Hemoglobin 4.8 g/dL (12.0-16.0); Mean Corpuscular Hemoglobin 31.8 pg (25-34); Mean Corpuscular Hgb Conc 33.3 g/dL (32-36); Mean Corpuscular Volume 95.4 fL (80-100); Mean Platelet Volume 9.5 fL (7.4-10.4); Nucleated RBC # (auto) 0.02 K/uL (0-0); Nucleated RBC % (auto) 1.6 %; Platelet Count 9 K/uL (130-400); RDW Coefficient of Variation 17.3 % (11.5-14.5); RDW Standard Deviation 60.5 fL (36.4-46.3); Red Blood Count 1.51 M/uL (4.2-5.4); White Blood Count 1.14 K/uL (4.8-10.8)
[2020-09-26 08:07] LABS: BUN Creatinine Ratio 42.2 (10-20); Calcium 8.5 mg/dl (8.5-10.1); Creatinine Clr Calc Pharmacy 123.8 ml/min; Est GFR (African American) 114.5; Est GFR (Non-African American) 98.8; Potassium 3.3 mmol/L (3.5-5.1)
[2020-09-26] MEDS ORDERED: SODIUM CHLORIDE 0.9% 250 ML IV PRN ×4 (08:07→23:01)
[2020-09-26 08:10] LABS: Dohle Bodies 2+; Platelet Estimate SIGNIFIC DECREASED (Normal); Toxic Granulation 1+
[2020-09-26 08:11] LABS: ALC (manual) 0.22 K/uL (1.2-3.4); ANC (manual) 0.74 K/uL (1.4-6.5); Eosinophils # (manual) 0.01 K/uL (0-0.5); Eosinophils % (manual) 0.9 %; Lymphocytes # (manual) 0.22 K/uL (1.2-3.4); Lymphocytes % (manual) 19.3 %; Monocytes # (manual) 0.17 K/uL (0.11-0.59); Monocytes % (manual) 14.9 %; Neutrophils # (manual) 0.74 K/uL (1.4-6.5); Neutrophils % (manual) 64.9 %
[2020-09-26] MEDS ORDERED: FUROSEMIDE 20 MG in SYRINGE 0 ML IV ONE (08:16)
[2020-09-26] MEDS ORDERED: POTASSIUM CHLORIDE CRTAB 20 MEQ TABCR PO STA (08:16)
[2020-09-26] MEDS: CHOLECALCIFEROL 1,000 UNITS 25 MCG TAB PO SCH ×2 (08:24→09:14)
[2020-09-26] MEDS: LORATADINE 10 MG TAB PO SCH ×2 (08:26→22:44)
[2020-09-26] MEDS: GABAPENTIN 400 MG CAP PO SCH ×3 (08:26→22:45)
[2020-09-26] MEDS: SERTRALINE HCL 50 MG TABLET PO SCH (08:26)
[2020-09-26] MEDS: MULTIVITAMIN TAB PO SCH ×2 (08:27→09:14)
[2020-09-26] MEDS: OMEGA-3 (PURIFIED FISH OIL) 1 GM CAP PO SCH ×2 (08:27→09:15)
[2020-09-26] MEDS: METOPROLOL SUCC 50MG EXT REL TAB PO SCH (08:27)
[2020-09-26] MEDS: POTASSIUM CHLORIDE 10 MEQ TABCR PO SCH (08:27)
[2020-09-26] MEDS: CHECK fentaNYL PATCH PLACEMENT SCH (08:28)
[2020-09-26] MEDS: PANTOprazole 40 MG in DEXTROSE 5% 100 ML IV SCH ×4 (08:45→22:45)
--- NOTE | 2020-09-26 08:52 | Consultation Report ---
DATE OF CONSULTATION: 09/26/2020 REASON FOR CONSULTATION: Gingival hemorrhage in a 74-year-old female patient with metastatic uterine leiomyosarcoma. HISTORY OF PRESENT ILLNESS: The patient is a very pleasant 74-year-old female well known to [facility], currently under our management for high grade metastatic uterine leiomyosarcoma. She generally follows with our physician motor inspection mechanic previously managed by Dr. Porter Caballero. Unfortunately, now suffers from metastatic disease, has been receiving combination dacarbazine and gemcitabine, which was last administered on 09/17/2020. She presents to [facility] Emergency Room with severe gingival hemorrhage. I was not exactly clear on her story. She describes utilizing electric toothbrush and battling with oral ulcers attributable to her current therapy. Apparently, she has had frequent hemorrhages; however, this one was so severe she brought herself to the Emergency Room for management. She also relates episodes of epistaxis. Constitutionally, she continues to churchill with poor appetite, has been pretty much on clear liquids. She denies overt weight loss as a result. She denies fevers, chills or sweats. No cough. No abdominal pain. No current nausea or vomiting. The patient's original diagnosis was established in 2014, status post surgery, adjuvant chemotherapy and subsequent recurrent disease in 2016. She has been heavily pretreated and most recently started on combination dacarbazine and gemcitabine. She last visited with our physician motor inspection mechanic on 09/17/2020. 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 PAST SURGICAL HISTORY: Include tonsillectomy, appendectomy, sinus surgery, shoulder surgery, back surgery, cataract surgery, hysterectomy with bilateral oophorectomy, dilatation and curettage and colonoscopy. MEDICATIONS: Prior to admission include calcium carbonate 600 mg p.o. b.i.d., multivitamin 1 tablet p.o. daily, omega fish oil 1000 mg p.o. daily, ophthalmic cyclosporine 1 drop OP q. 12 hours, Xgeva 60 mg subQ q. 6 months, sertraline 50 mg p.o. daily, metoprolol 50 mg p.o. daily, simvastatin 20 mg p.o. daily, cholecalciferol 50 mcg p.o. every day, Claritin 10 mg p.o. b.i.d., Zofran 8 mg q. 12 hours p.r.n., MiraLax 17 grams p.o. daily p.r.n., Flonase 1 spray intranasally daily p.r.n., Lasix 20 mg p.o. daily, calcium chloride 10 mEq p.o. daily, fentanyl 12 mcg topically q. 72 hours, gabapentin 400 mg p.o. t.i.d. ALLERGIES: LAURIE (FRUIT) AND SULFA DRUGS. FAMILY HISTORY: Mother attributable to lymphoma. Father attributable to Alzheimer disease. No first degree family relatives with history of solid tumors. REVIEW OF SYSTEMS: As per HPI, most notably for gingival hemorrhage and intermittent epistaxis. GENERAL: Negative for fevers, chills or sweats. Positive for anorexia. No dramatic weight loss. SKIN: No rashes or lesions. No history of dermatoses. HEENT: She denies headaches, lightheadedness or dizziness. No acute visual or hearing deficits. No sinus symptoms. Again positive for epistaxis. No dysphagia or sore throat. She has been battling with treatment-induced herpes labialis. LYMPH: No history of lymphoproliferative disease. CARDIAC: No history of coronary artery disease, no angina or palpitations. PULMONARY: Negative for coronary artery disease. No current angina or palpitations. GASTROINTESTINAL: Negative for abdominal pain, nausea, vomiting, diarrhea or constipation. GENITOURINARY: No hematuria, dysuria, urinary incontinence. PSYCHIATRIC: Negative for anxiety, depression or psychoses. MUSCULOSKELETAL: No focal muscle weakness. No arthralgias. NEUROLOGIC: Negative for seizure, stroke, or migraine headache. ENDOCRINE: Negative for thyroid disease or diabetes mellitus. NEUROLOGIC: Negative for seizure, stroke, or migraine headache. HEMATOLOGIC: Cytopenias attributable to chemotherapeutic effect. PHYSICAL EXAMINATION: GENERAL: A very pleasant 74-year-old female, awake, alert and appropriate, in no acute distress. VITAL SIGNS: Temperature 36.6, pulse 101, respiratory rate 18, blood pressure 132/76. SKIN: Warm, dry, noncyanotic without petechia, rash or ecchymosis. HEENT: Head is atraumatic, normocephalic. Eyes: PERRLA, EOMI. Sclerae nonicteric. No conjunctival injection. Nares are patent without rhinorrhea or discharge. Throat clear. Tongue midline. I could not really appreciate any significant buccal lesions, ulcerations or lacerations. NECK: Supple without JVD or thyromegaly. LYMPHATICS: No cervical, supraclavicular, axillary or inguinal palpable nodes. HEART: Regular rate and rhythm. No clicks, rubs, murmurs or gallops. LUNGS: Clear to auscultation bilaterally. ABDOMEN: Soft, nontender, nondistended, without palpable hepatosplenomegaly. EXTREMITIES: No calf tenderness or swelling. No clubbing, cyanosis or edema. LABORATORY DATA: WBC count 1350, hemoglobin 6.9, platelet count 2000. Chemistries: Sodium 132, potassium 3.4, chloride 99, carbon dioxide 20, BUN 20, creatinine 0.52, albumin 2.5. RADIOGRAPHIC DATA: 1. Chest x-ray done on admission reveals interval increase in pulmonary edema. 2. Persistent bilateral pleural effusions. 3. Redemonstration of multiple pulmonary nodules and masses better depicted on chest CT, increase in right lower lung and left perihilar opacity thought to be infectious or pulmonary edema. IMPRESSION: 1. Gingival hemorrhage. 2. Epistaxis. 3. Pancytopenia attributable to chemotherapeutic effect. 4. Severe anemia/thrombocytopenia. 5. Metastatic high-grade leiomyosarcoma. 6. Hypoalbuminemia. 7. Anorexia. PLAN: It was my pleasure to visit with the patient at bedside this morning. The patient has been a part to [facility] for several years, originally managed by Dr. Porter Caballero and more recently by CARROLL Bartlett. She unfortunately suffers from refractory metastatic high-grade uterine leiomyosarcoma recently started on combination dacarbazine and gemcitabine. The latter is noted for thrombocytopenia. The patient is profoundly anemic and thrombocytopenic. If not already done so, transfuse single donor platelet pheresis and at least 2 units packed RBCs moving forward. I could not appreciate any active hemorrhage on physical examination and thus the need to work on her cytopenias and appetite. Definitely in favor of an appetite stimulant perhaps Megace versus daily prednisone. Obviously, her chemotherapy will be on hold until her peripheral blood counts recover. I will examine her current dosing and perhaps entertain a dose modification, particularly as it pertains to gemcitabine. From a pulmonary standpoint while her radiographs indicate significant pathology, she does not appear to be symptomatic at this time. I believe much of what is going on intrathoracically is attributable to her progressive neoplasia. We will ensure patient is arranged for appropriate followup. I will discuss patient's case directly with my physician motor inspection mechanic. Thank you very much for allowing me to participate in her care. If there are any further questions, feel free to contact me at any time.
[2020-09-26] MEDS ORDERED: MoRPHine SULFATE 2 MG/ML CARP IV STA (09:25)
[2020-09-26] MEDS ORDERED: MoRPHine SULFATE 2 MG/ML CARP ONE (09:26)
--- NOTE | 2020-09-26 09:48 | Gastrointestinal Consultation ---
Date of Consultation September 26, 2020 Assessment & Plan (1) Oral hemorrhage: (2) Pancytopenia: The patient was in the process of being transferred to ICU this morning during evaluation due to hgb 4.8/hct 14.4/plt 9. Concerns for GI bleeding due to small emesis this morning containing blood and complaints of bright red blood in stool. Will need to delay any recommended endoscopy at present time due to increased risk of bleeding. Patient has also had significant complaints of epistaxis and gingival hemorrhage although no active bleeding noted at current time. Recommend transfusion with PRBC, plasma, and platelets as ordered. Continue IV PPI as prophylaxis. If vomiting, consider changing diet to NPO. Case reviewed with Dr. Gleason who will see the patient this afternoon. Please refer to supervising physician addendum for further recommendations. 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 Patient was reportedly spitting out large clots. She was admitted 08/26/2020 due to uncontrolled epistaxis. She was seen by Dr. Beaulieu from ENT while inpatient. It was recommended that she was discharged on antibiotics for 7 days such as Augmentin. Last received chemotherapy combination dacarbazine and gemcitabine 09/17/2020. She was subsequently admitted due to anemia and thrombocytopenia. Hemoglobin 6.9, hematocrit 20.6, platelet count 2. GI consult was placed due to concerns for GI bleeding and anemia. The patient reports inpatient due to epistaxis as noted above. She reports that she has had continued episodes of epistaxis at home. She states she has been able to control these since discharge. She states yesterday she began having profuse bleeding from her mouth with clots. She states that she has not had dark or tarry stools at home. She does state that she has noted normal stools with blood all around the stool itself. She states since the bleeding in her gums that she has had some vomiting. She has been nauseated and "retching". She states that she has had decreased appetite. She does note some weight loss but this has been ongoing with chemotherapy per the patient. She has used electric toothbrushes. She has had bleeding noted in her gums prior to admission. Per nursing, small amt bloody emesis with clots this morning 07/01/2016: Colonoscopy notes reviewed performed by Dr. Hillman demonstrated 2 sessile polyps found in the descending colon which were 5 to 7 mm in size. These were removed. There were multiple small mouth diverticula found in the sigmoid colon. Nonbleeding internal hemorrhoids were found which were small during exam. Pathology results demonstrated tubular adenoma. The patient is and lives at home with her . She does have adult children. Her is her primary caregiver when needed. Denies any history of smoking. She denies alcohol or drug use. It is noted in her chart that she has used medical marijuana. She is retired. Allergies Allergy/AdvReac Type Severity Reaction Status Date / Time selina Allergy Intermediate HIVES Verified 09/25/20 18:40 Sulfa (Sulfonamide Allergy Intermediate HIVES Verified 09/25/20 18:40 Antibiotics) Home Medications Medication Instructions Recorded Confirmed Type calcium carbonate 600 mg calcium 600 mg PO .BID/3XW tab 06/27/18 09/25/20 History (1,500 mg) tablet multivitamin 1 tab PO DAILY 06/27/18 09/25/20 History omega-3 fatty acids 1,000 mg 1,000 mg PO DAILY 06/27/18 09/25/20 History capsule cyclosporine 0.05 % eye drops in a 1 drops OP Q12H 06/30/18 09/25/20 History dropperette denosumab 60 mg/mL subcutaneous 60 mg SQ Q6MO ml 06/14/19 09/25/20 History syringe sertraline 50 mg tablet 50 mg PO DAILY #90 tab 01/11/20 09/25/20 Rx metoprolol succinate 50 mg 50 mg PO DAILY #90 tab 05/27/20 09/25/20 Rx tablet,extended release 24 hr simvastatin 10 mg tablet 20 mg PO QPM #180 tab 05/27/20 09/25/20 Rx cholecalciferol (vitamin D3) 50 50 mcg PO DAILY 06/14/20 09/25/20 History mcg (2,000 unit) capsule loratadine [Claritin] 10 mg PO BID 07/17/20 09/25/20 History ondansetron 8 mg PO Q12H PRN 07/17/20 09/25/20 History polyethylene glycol 3350 [Miralax] 17 g PO DAILY PRN 07/17/20 09/25/20 History mometasone 50 mcg/actuation nasal 1 spray INTRANASAL DAILY PRN #17 g 07/31/20 09/25/20 Rx spray miscellaneous throat product 10 ml BUCCAL TID PRN 08/26/20 09/25/20 History furosemide [Lasix] 20 mg PO DAILY #30 tab 08/27/20 09/25/20 Rx potassium chloride 10 meq PO DAILY #30 tab 08/27/20 09/25/20 Rx fentanyl 12 mcg/hr transdermal 1 patch TRANSDERMAL Q72H 09/12/20 09/25/20 History patch gabapentin 400 mg PO TID 09/25/20 09/25/20 History Patient History Medical History Cancer Herpes zoster Hypercholesteremia Left-sided chest wall pain Lumbar spinal stenosis Lung nodule Peripheral neuropathy due to chemotherapy Syncope Surgical History H/O colonoscopy H/O dilation and curettage H/O hysterectomy with oophorectomy H/O oophorectomy H/O oral surgery H/O: hysterectomy History of back surgery History of cataract surgery History of shoulder surgery History of sinus surgery Hx of appendectomy Hx of tonsillectomy Status post cryoablation Buttocks Family History Mother Lymphoma Father Alzheimer disease Unknown Uterine cancer Grandfather (Maternal) Myocardial infarction Denies family history of Ovarian cancer Prostate cancer Breast cancer Colorectal cancer Social History Smoking Status: Never smoker Second Hand Exposure: No; Do You Dip or Chew Tobacco: No; Hx Alcohol Use: No Hx Substance Use: No Preferred Language: Turkmen Communication Ability: Effective Hearing Ability: Use of Hearing Aid Cell Plasterer Required: No Beliefs That Will Affect Care: None marital status: Current Living Situation: Spouse current occupational status: retired Other Information That Helps Us Care for You: No Feels Safe at Home: Yes Safety Concerns: Feels Safe At This Time Dental Care, Regularly: Yes Physical Activity Frequency: 1-2 Times per Week Physical Activity Frequency Comment: swimming and walking Seatbelt Use: always Sunscreen Use: Yes (sometimes) Assistive Devices: Cane Review of Systems Review of Systems: All systems reviewed & are unremarkable except as noted in HPI & below Physical Exam Constitutional: + ill appearing and + cachectic ENMT: Ears: + hearing impairment (ANVIK) No active bleeding of gums noted Neck: normal visual inspection Respiratory: normal respiratory effort; no respiratory distress and no labored breathing Cardiovascular: Rate/Rhythm: + irregularly irregular Gastrointestinal (Abdomen): normal bowel sounds, soft, nontender, no hepatosplenomegaly rectal exam deferred Neurologic: PERRL, EOMI, accommodation nl, no face palsy, no dysarthria Psychiatric: Orientation: alert, oriented x 3 and cooperative Results & Data (MN) Vital Signs (Past 12 Hours) Vital Signs Temp Pulse Pulse Resp BP BP Pulse Ox 09/26/20 09:07 36.5 C 116 H 18 116/61 97 09/26/20 09:01 36.5 C 116 H 18 116/61 97 09/26/20 08:41 36.8 C 135 H 16 145/76 H 98 09/26/20 08:14 36.7 C 123 H 16 140/75 96 09/26/20 07:59 36.8 C 118 H 18 132/77 97 09/26/20 07:42 36.9 C 117 H 18 136/65 97 09/26/20 06:51 36.6 C 101 H 18 132/75 93 09/26/20 06:25 36.8 C 113 H 18 120/57 L 96 09/26/20 05:25 36.5 C 103 H 16 128/78 97 09/26/20 04:25 36.5 C 115 H 18 130/75 98 09/26/20 03:55 36.4 C L 108 H 18 121/67 98 09/26/20 03:40 36.9 C 101 H 18 120/72 97 09/26/20 03:39 36.9 C 101 H 18 120/72 97 09/26/20 03:24 36.7 C 102 H 18 115/73 93 09/26/20 03:14 36.7 C 102 H 16 115/73 93 09/26/20 02:56 36.7 C 88 16 130/49 L 93 09/26/20 01:56 36.6 C 115 H 16 128/89 95 09/26/20 01:55 36.6 C 115 H 16 128/89 95 09/26/20 00:56 36.8 C 110 H 16 132/69 97 09/26/20 00:26 36.6 C 100 H 16 121/66 91 09/26/20 00:21 103 H 09/26/20 00:11 36.6 C 108 H 16 124/71 95 09/25/20 23:51 36.6 C 106 H 16 126/71 98 09/25/20 23:48 36.6 C 105 H 16 126/71 98 09/25/20 23:27 36.5 C 106 H 16 107/48 L 99 09/25/20 22:51 36.7 C 110 H 18 117/56 L 96 09/25/20 22:21 36.6 C 110 H 18 157/73 H 94 09/25/20 22:20 36.6 C 104 H 18 123/65 97 09/25/20 22:05 36.5 C 120 H 18 112/61 100 09/25/20 21:50 36.4 C L 106 H 18 117/66 97 09/25/20 21:49 36.1 C L 111 H 18 128/82 96 09/25/20 21:48 36.4 C L 106 H 18 117/66 98 Laboratory Results - last 24 hr 09/25/20 09/25/20 09/25/20 18:06 18:06 18:06 WBC 1.35 L RBC 2.14 L Hgb 6.9 L* Hct 20.6 L* MCV 96.3 MCH 32.2 MCHC 33.5 RDW Std Deviation 60.4 H RDW Coeff of Zhao 17.2 H Plt Count 2 L* MPV Absolute Nucleated RBC 0.02 H Nucleated RBC % (auto) 1.3 Neutrophils % (Manual) 80.5 Lymphocytes % (Manual) 8.0 Monocytes % (Manual) 11.5 Eosinophils % (Manual) Neutrophils # (Manual) 1.09 L Total Absolute Neuts 1.09 L Lymphocytes # (Manual) 0.11 L Total Abs Lymphocytes 0.11 L Monocytes # (Manual) 0.16 Eosinophils # (Manual) Toxic Granulation 2+ Dohle Bodies 1+ Platelet Estimate SIGNIFIC DECREASED PT 13.3 H INR 1.3 H APTT 28.2 PTT Ratio 1.0 Sodium Potassium Chloride Carbon Dioxide Anion Gap BUN Creatinine Est Cr Clr Drug Dosing Est GFR ( Amer) Est GFR (Non-Af Amer) BUN/Creatinine Ratio Glucose Lactate Calcium Magnesium Total Bilirubin AST ALT Alkaline Phosphatase Troponin I Total Protein Albumin Globulin Albumin/Globulin Ratio COVID-19 Eval Order SARS-CoV-2, RNA, NAAT Blood Type O Positive Antibody Screen NEGATIVE Crossmatch See Detail 09/25/20 09/25/20 09/25/20 18:06 18:35 18:35 WBC RBC Hgb Hct MCV MCH MCHC RDW Std Deviation RDW Coeff of Zhao Plt Count MPV Absolute Nucleated RBC Nucleated RBC % (auto) Neutrophils % (Manual) Lymphocytes % (Manual) Monocytes % (Manual) Eosinophils % (Manual) Neutrophils # (Manual) Total Absolute Neuts Lymphocytes # (Manual) Total Abs Lymphocytes Monocytes # (Manual) Eosinophils # (Manual) Toxic Granulation Dohle Bodies Platelet Estimate PT INR APTT PTT Ratio Sodium 132 L Potassium 3.4 L Chloride 99 Carbon Dioxide 20 L Anion Gap 13.0 H BUN 20 H Creatinine 0.52 L Est Cr Clr Drug Dosing Not Reportable Est GFR ( Amer) 107.6 Est GFR (Non-Af Amer) 92.8 BUN/Creatinine Ratio 39.1 H Glucose 125 H Lactate Calcium 8.7 Magnesium Total Bilirubin 0.8 AST 36 ALT 21 Alkaline Phosphatase 88 Troponin I Total Protein 5.8 L Albumin 2.5 L Globulin 3.3 Albumin/Globulin Ratio 0.8 L COVID-19 Eval Order Covid19 [facility] SARS-CoV-2, RNA, NAAT NEGATIVE Blood Type Antibody Screen Crossmatch 09/26/20 09/26/20 09/26/20 07:10 07:10 07:10 WBC 1.14 L RBC 1.51 L Hgb 4.8 L* Hct 14.4 L* MCV 95.4 MCH 31.8 MCHC 33.3 RDW Std Deviation 60.5 H RDW Coeff of Zhao 17.3 H Plt Count 9 L* D MPV 9.5 Absolute Nucleated RBC 0.02 H Nucleated RBC % (auto) 1.6 Neutrophils % (Manual) 64.9 Lymphocytes % (Manual) 19.3 Monocytes % (Manual) 14.9 Eosinophils % (Manual) 0.9 Neutrophils # (Manual) 0.74 L Total Absolute Neuts 0.74 L* Lymphocytes # (Manual) 0.22 L Total Abs Lymphocytes 0.22 L Monocytes # (Manual) 0.17 Eosinophils # (Manual) 0.01 Toxic Granulation 1+ Dohle Bodies 2+ Platelet Estimate SIGNIFIC DECREASED PT INR APTT PTT Ratio Sodium 134 L Potassium 3.3 L Chloride 100 Carbon Dioxide 25 Anion Gap 9.0 BUN 18 Creatinine 0.43 L Est Cr Clr Drug Dosing 123.8 Est GFR ( Amer) 114.5 Est GFR (Non-Af Amer) 98.8 BUN/Creatinine Ratio 42.2 H Glucose 99 Lactate Calcium 8.5 Magnesium 1.9 Total Bilirubin AST ALT Alkaline Phosphatase Troponin I Total Protein Albumin Globulin Albumin/Globulin Ratio COVID-19 Eval Order SARS-CoV-2, RNA, NAAT Blood Type Antibody Screen Crossmatch 09/26/20 09/26/20 09:04 09:04 WBC RBC Hgb Hct MCV MCH MCHC RDW Std Deviation RDW Coeff of Zhao Plt Count MPV Absolute Nucleated RBC Nucleated RBC % (auto) Neutrophils % (Manual) Lymphocytes % (Manual) Monocytes % (Manual) Eosinophils % (Manual) Neutrophils # (Manual) Total Absolute Neuts Lymphocytes # (Manual) Total Abs Lymphocytes Monocytes # (Manual) Eosinophils # (Manual) Toxic Granulation Dohle Bodies Platelet Estimate PT INR APTT PTT Ratio Sodium Potassium Chloride Carbon Dioxide Anion Gap BUN Creatinine Est Cr Clr Drug Dosing Est GFR ( Amer) Est GFR (Non-Af Amer) BUN/Creatinine Ratio Glucose Lactate 3.4 H* Calcium Magnesium Total Bilirubin AST ALT Alkaline Phosphatase Troponin I 0.142 H* Total Protein Albumin Globulin Albumin/Globulin Ratio COVID-19 Eval Order SARS-CoV-2, RNA, NAAT Blood Type Antibody Screen Crossmatch
[2020-09-26] MEDS ORDERED: NITROGLYCERIN SL 0.4 MG/TAB TAB ONE ×2 (09:49→09:50)
--- NOTE | 2020-09-26 10:23 | Electrocardiogram Report ---
Test Reason : Blood Pressure : / mmHG Vent. Rate : 142 BPM Atrial Rate : 144 BPM P-R Int : 126 ms QRS Dur : 110 ms QT Int : 386 ms P-R-T Axes : 085 -07 179 degrees QTc Int : 593 ms Poor data quality, interpretation may be adversely affected Sinus tachycardia Low voltage QRS Abnormal ECG Confirmed by Gamaliel Alvarez ([id number]) on 09/26/2020 10:23:05 AM Referred By: REFERRED SELF Confirmed By:Chino Alvarez
[2020-09-26] MEDS ORDERED: METOPROLOL TARTRATE 1 MG/ML VIAL IV PRN (11:24)
--- NOTE | 2020-09-26 11:25 | Hospitalist Progress Note ---
Date of Service September 26, 2020 Assessment & Plan Admission and Anticipated Discharge Date Admission Date: September 25, 2020 Results & Data Results & Data ([facility]) Vital Signs (Past 12 Hours) Vital Signs Temp Pulse Resp BP Pulse Ox 09/26/20 11:09 36.8 C 105 H 22 129/67 100 09/26/20 10:46 117 H 09/26/20 10:09 36.7 C 112 H 31 H 129/56 L 98 09/26/20 09:39 36.3 C L 123 H 20 147/72 H 96 09/26/20 09:24 36.3 C L 123 H 20 147/72 H 96 09/26/20 09:07 36.5 C 116 H 18 116/61 97 09/26/20 09:01 36.5 C 116 H 18 116/61 97 09/26/20 08:41 36.8 C 135 H 16 145/76 H 98 09/26/20 08:14 36.7 C 123 H 16 140/75 96 09/26/20 07:59 36.8 C 118 H 18 132/77 97 09/26/20 07:42 36.9 C 117 H 18 136/65 97 09/26/20 06:51 36.6 C 101 H 18 132/75 93 09/26/20 06:25 36.8 C 113 H 18 120/57 L 96 09/26/20 05:25 36.5 C 103 H 16 128/78 97 09/26/20 04:25 36.5 C 115 H 18 130/75 98 09/26/20 03:55 36.4 C L 108 H 18 121/67 98 09/26/20 03:40 36.9 C 101 H 18 120/72 97 09/26/20 03:39 36.9 C 101 H 18 120/72 97 09/26/20 03:24 36.7 C 102 H 18 115/73 93 09/26/20 03:14 36.7 C 102 H 16 115/73 93 09/26/20 02:56 36.7 C 88 16 130/49 L 93 09/26/20 01:56 36.6 C 115 H 16 128/89 95 09/26/20 01:55 36.6 C 115 H 16 128/89 95 09/26/20 00:56 36.8 C 110 H 16 132/69 97 09/26/20 00:26 36.6 C 100 H 16 121/66 91 09/26/20 00:21 103 H 09/26/20 00:11 36.6 C 108 H 16 124/71 95 09/25/20 23:51 36.6 C 106 H 16 126/71 98 09/25/20 23:48 36.6 C 105 H 16 126/71 98 09/25/20 23:27 36.5 C 106 H 16 107/48 L 99 Laboratory Results 09/26/20 09/26/20 09/26/20 Range/Units 10:52 09:04 09:04 WBC (4.8-10.8) K/uL RBC (4.2-5.4) M/uL Hgb (12.0-16.0) g/dL Hct (37-47) % MCV (80-100) fL MCH (25-34) pg MCHC (32-36) g/dL RDW Std Deviation (36.4-46.3) fL RDW Coeff of Zhao (11.5-14.5) % Plt Count (130-400) K/uL MPV (7.4-10.4) fL Absolute Nucleated RBC (0-0) K/uL Nucleated RBC % (auto) % Neutrophils % (Manual) % Lymphocytes % (Manual) % Monocytes % (Manual) % Eosinophils % (Manual) % Neutrophils # (Manual) (1.4-6.5) K/uL Total Absolute Neuts (1.4-6.5) K/uL Lymphocytes # (Manual) (1.2-3.4) K/uL Total Abs Lymphocytes (1.2-3.4) K/uL Monocytes # (Manual) (0.11-0.59) K/uL Eosinophils # (Manual) (0-0.5) K/uL Toxic Granulation Dohle Bodies Platelet Estimate (Normal) PT (9.0-12.0) Seconds INR (0.9-1.1) APTT (21.0-31.0) Seconds PTT Ratio Sodium (136-145) mmol/L Potassium (3.5-5.1) mmol/L Chloride (98-107) mmol/L Carbon Dioxide (21-32) mmol/L Anion Gap (3-11) BUN (7-18) mg/dl Creatinine (0.6-1.2) mg/dl Est Cr Clr Drug Dosing Est GFR ( Amer) Est GFR (Non-Af Amer) BUN/Creatinine Ratio (10-20) Glucose (70-99) mg/dl Lactate Pending 3.4 H* (0.4-2.0) mmol/L Calcium (8.5-10.1) mg/dl Magnesium (1.8-2.4) mg/dl Total Bilirubin (0.2-1) mg/dl AST (15-37) U/L ALT (12-78) U/L Alkaline Phosphatase (45-117) U/L Troponin I 0.142 H* (0-0.045) ng/ml Total Protein (6.4-8.2) gm/dl Albumin (3.4-5.0) gm/dl Globulin (2.5-4.0) gm/dl Albumin/Globulin Ratio (0.9-2) COVID-19 Eval Order SARS-CoV-2, RNA, NAAT (NEGATIVE) Blood Type Antibody Screen Crossmatch 09/26/20 09/26/20 09/26/20 Range/Units 07:10 07:10 07:10 WBC 1.14 L (4.8-10.8) K/uL RBC 1.51 L (4.2-5.4) M/uL Hgb 4.8 L* (12.0-16.0) g/dL Hct 14.4 L* (37-47) % MCV 95.4 (80-100) fL MCH 31.8 (25-34) pg MCHC 33.3 (32-36) g/dL RDW Std Deviation 60.5 H (36.4-46.3) fL RDW Coeff of Zhao 17.3 H (11.5-14.5) % Plt Count 9 L* D (130-400) K/uL MPV 9.5 (7.4-10.4) fL Absolute Nucleated RBC 0.02 H (0-0) K/uL Nucleated RBC % (auto) 1.6 % Neutrophils % (Manual) 64.9 % Lymphocytes % (Manual) 19.3 % Monocytes % (Manual) 14.9 % Eosinophils % (Manual) 0.9 % Neutrophils # (Manual) 0.74 L (1.4-6.5) K/uL Total Absolute Neuts 0.74 L* (1.4-6.5) K/uL Lymphocytes # (Manual) 0.22 L (1.2-3.4) K/uL Total Abs Lymphocytes 0.22 L (1.2-3.4) K/uL Monocytes # (Manual) 0.17 (0.11-0.59) K/uL Eosinophils # (Manual) 0.01 (0-0.5) K/uL Toxic Granulation 1+ Dohle Bodies 2+ Platelet Estimate SIGNIFIC DECREASED (Normal) PT (9.0-12.0) Seconds INR (0.9-1.1) APTT (21.0-31.0) Seconds PTT Ratio Sodium 134 L (136-145) mmol/L Potassium 3.3 L (3.5-5.1) mmol/L Chloride 100 (98-107) mmol/L Carbon Dioxide 25 (21-32) mmol/L Anion Gap 9.0 (3-11) BUN 18 (7-18) mg/dl Creatinine 0.43 L (0.6-1.2) mg/dl Est Cr Clr Drug Dosing 123.8 Est GFR ( Amer) 114.5 Est GFR (Non-Af Amer) 98.8 BUN/Creatinine Ratio 42.2 H (10-20) Glucose 99 (70-99) mg/dl Lactate (0.4-2.0) mmol/L Calcium 8.5 (8.5-10.1) mg/dl Magnesium 1.9 (1.8-2.4) mg/dl Total Bilirubin (0.2-1) mg/dl AST (15-37) U/L ALT (12-78) U/L Alkaline Phosphatase (45-117) U/L Troponin I (0-0.045) ng/ml Total Protein (6.4-8.2) gm/dl Albumin (3.4-5.0) gm/dl Globulin (2.5-4.0) gm/dl Albumin/Globulin Ratio (0.9-2) COVID-19 Eval Order SARS-CoV-2, RNA, NAAT (NEGATIVE) Blood Type Antibody Screen Crossmatch 09/25/20 09/25/20 09/25/20 Range/Units 18:35 18:35 18:06 WBC (4.8-10.8) K/uL RBC (4.2-5.4) M/uL Hgb (12.0-16.0) g/dL Hct (37-47) % MCV (80-100) fL MCH (25-34) pg MCHC (32-36) g/dL RDW Std Deviation (36.4-46.3) fL RDW Coeff of Zhao (11.5-14.5) % Plt Count (130-400) K/uL MPV (7.4-10.4) fL Absolute Nucleated RBC (0-0) K/uL Nucleated RBC % (auto) % Neutrophils % (Manual) % Lymphocytes % (Manual) % Monocytes % (Manual) % Eosinophils % (Manual) % Neutrophils # (Manual) (1.4-6.5) K/uL Total Absolute Neuts (1.4-6.5) K/uL Lymphocytes # (Manual) (1.2-3.4) K/uL Total Abs Lymphocytes (1.2-3.4) K/uL Monocytes # (Manual) (0.11-0.59) K/uL Eosinophils # (Manual) (0-0.5) K/uL Toxic Granulation Dohle Bodies Platelet Estimate (Normal) PT (9.0-12.0) Seconds INR (0.9-1.1) APTT (21.0-31.0) Seconds PTT Ratio Sodium 132 L (136-145) mmol/L Potassium 3.4 L (3.5-5.1) mmol/L Chloride 99 (98-107) mmol/L Carbon Dioxide 20 L (21-32) mmol/L Anion Gap 13.0 H (3-11) BUN 20 H (7-18) mg/dl Creatinine 0.52 L (0.6-1.2) mg/dl Est Cr Clr Drug Dosing Not Reportable Est GFR ( Amer) 107.6 Est GFR (Non-Af Amer) 92.8 BUN/Creatinine Ratio 39.1 H (10-20) Glucose 125 H (70-99) mg/dl Lactate (0.4-2.0) mmol/L Calcium 8.7 (8.5-10.1) mg/dl Magnesium (1.8-2.4) mg/dl Total Bilirubin 0.8 (0.2-1) mg/dl AST 36 (15-37) U/L ALT 21 (12-78) U/L Alkaline Phosphatase 88 (45-117) U/L Troponin I (0-0.045) ng/ml Total Protein 5.8 L (6.4-8.2) gm/dl Albumin 2.5 L (3.4-5.0) gm/dl Globulin 3.3 (2.5-4.0) gm/dl Albumin/Globulin Ratio 0.8 L (0.9-2) COVID-19 Eval Order Cov[facility] SARS-CoV-2, RNA, NAAT NEGATIVE (NEGATIVE) Blood Type Antibody Screen Crossmatch 09/25/20 09/25/20 09/25/20 Range/Units 18:06 18:06 18:06 WBC 1.35 L (4.8-10.8) K/uL RBC 2.14 L (4.2-5.4) M/uL Hgb 6.9 L* (12.0-16.0) g/dL Hct 20.6 L* (37-47) % MCV 96.3 (80-100) fL MCH 32.2 (25-34) pg MCHC 33.5 (32-36) g/dL RDW Std Deviation 60.4 H (36.4-46.3) fL RDW Coeff of Zhao 17.2 H (11.5-14.5) % Plt Count 2 L* (130-400) K/uL MPV (7.4-10.4) fL Absolute Nucleated RBC 0.02 H (0-0) K/uL Nucleated RBC % (auto) 1.3 % Neutrophils % (Manual) 80.5 % Lymphocytes % (Manual) 8.0 % Monocytes % (Manual) 11.5 % Eosinophils % (Manual) % Neutrophils # (Manual) 1.09 L (1.4-6.5) K/uL Total Absolute Neuts 1.09 L (1.4-6.5) K/uL Lymphocytes # (Manual) 0.11 L (1.2-3.4) K/uL Total Abs Lymphocytes 0.11 L (1.2-3.4) K/uL Monocytes # (Manual) 0.16 (0.11-0.59) K/uL Eosinophils # (Manual) (0-0.5) K/uL Toxic Granulation 2+ Dohle Bodies 1+ Platelet Estimate SIGNIFIC DECREASED (Normal) PT 13.3 H (9.0-12.0) Seconds INR 1.3 H (0.9-1.1) APTT 28.2 (21.0-31.0) Seconds PTT Ratio 1.0 Sodium (136-145) mmol/L Potassium (3.5-5.1) mmol/L Chloride (98-107) mmol/L Carbon Dioxide (21-32) mmol/L Anion Gap (3-11) BUN (7-18) mg/dl Creatinine (0.6-1.2) mg/dl Est Cr Clr Drug Dosing Est GFR ( Amer) Est GFR (Non-Af Amer) BUN/Creatinine Ratio (10-20) Glucose (70-99) mg/dl Lactate (0.4-2.0) mmol/L Calcium (8.5-10.1) mg/dl Magnesium (1.8-2.4) mg/dl Total Bilirubin (0.2-1) mg/dl AST (15-37) U/L ALT (12-78) U/L Alkaline Phosphatase (45-117) U/L Troponin I (0-0.045) ng/ml Total Protein (6.4-8.2) gm/dl Albumin (3.4-5.0) gm/dl Globulin (2.5-4.0) gm/dl Albumin/Globulin Ratio (0.9-2) COVID-19 Eval Order SARS-CoV-2, RNA, NAAT (NEGATIVE) Blood Type O Positive Antibody Screen NEGATIVE Crossmatch See Detail PG Care Time/CCT Total # of Minutes Spent Total Time Spent with Patient: Total time spent is greater than 50% in coordination of care (as documented) at patient's floor/unit and/or counseling patient: Coding
--- NOTE | 2020-09-26 11:59 | Critical Care Consultation ---
Date of Consultation September 26, 2020 Assessment & Plan (1) Pancytopenia: Reason Critically Ill: 74 yo F with pMHx. significant for Leiomyosarcoma here for pancytopenia d/t chemotherapy and recent onset of bleeding from the gums found to be pancytopenic, repleting with blood, platelets and FFP and continue to monitor. NEURO - History of metastasis to the brain, alert and oriented with no acute concerns CARDIAC/VASCULAR Chest pain w/ troponin 0.023 -> 0.142 (9:04) -> 0.113, potentially demand ischemia given anemia A. fib w/ RVR potentially due to anemia - Continue Metoprolol succinate 50 daily - has Metoprolol Tartrate 5mg Q5M for HR > 150 RESPIRATORY - currently on oxymask, no acute concerns GI/NUTRITION - full liquid diet GI had been consulted RENAL/LYTES - cr. 0.43 IVF: IVF 50 ml/h with 20 kcl - Tello in place ENDO - no acute concerns HEME - Pancytopenia WBC 1.14, H&H - 4.8&14.4, platelets 9 slightly improved, and again improving with afternoon labs - receiving FFP, Blood and platelets - continue to follow CBC ID - afebrile, tachycardic (although this is likely due to anemia), lactate 3.1 down from 3.4 earlier this morning LINES/IV ACCESS - PIV X2, port R chest, Tello DVT PROPHYLAXIS - held in the setting of bleeding Code Status: Full code Supervising Physician Co-Signing Physician Notes Dr. Otero was the resident-physician during care of patient. I separately evaluated patient for lundy portions of the history and the exam. I was present during the critical portion of medical decision making, and I discussed the case with the resident. I generally agree with the findings and plan except for any additions/exceptions noted. 74-year-old female with a past medical history of leiomyosarcoma with widespread metastatic disease presenting to the hospital with gingival hemorrhage, epistaxis and concern for GI bleed. She was brought down to the ICU due to severe anemia and concerns for impending hemorrhagic shock. She has significant tachycardia on presentation. This is largely resolved. She is receiving blood and platelets. She is currently on Protonix drip for concern of GI bleed. GI has evaluated the patient and does not recommend an EGD at this time due to severe thrombocytopenia. I suspect that her pancytopenia is related to chemotherapy. Hematology and oncology is on board and following as well. We will discontinue sertraline due to its antiplatelet effects. Continue metoprolol tartrate 50 mg daily. Hold all anticoagulation. Not a candidate for anticoagulation at this time despite the fact that she had atrial fibrillation. She is at very high risk for bleeding. Continue to monitor hemoglobin every 6 hours. Given the patient's degree of metastatic disease, goals of care discussion would be warranted. This was discussed with the patient's hospitalist. Patient will likely be stable for downgrade tomorrow. CRITICAL CARE TIME - I have personally spent 31 minutes of critical care time in the direct management of this patient. This is a life/limb threatening event. This includes time spent evaluating patient, direct bedside care, chart review, placing orders, interpretation of diagnostic studies, discussion with consultants, patient, and family members, as well as other required patient management activities. This time is exclusive of all separately billable procedures, and teaching time and separate from and in addition to any other critical care service time. History of Present Illness Attending Physician: Patricio Jack MD Rosio White has a past medical history significant for Leiomyosarcoma, chronic diastolic heart failure, HTN, dyslipidemia, chronic venous insufficiency atrial fibrillation and chronic LBBB. In the ICU for pancytopenia. She was admitted for profuse bleeding gums. 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 When I saw her she was having some chest pain described as heavy pressure that started when she started to get blood. The pain has improved after getting morphine, oxygen and nitroglycerin from a 03/08 -> 09/08. She has not had any associated shortness of breath or nausea. She has vomited up clotted blood in the ER and prior to coming on to the ICU. She had seen Dr. Ramirez 2 weeks prior. She has had lower extremity edema since starting chemotherapy and this has not increased recently. She brought up that she has tumors in her right lower quadrant and left lower quadrant but they do not cause her pain. Allergies Allergy/AdvReac Type Severity Reaction Status Date / Time selina Allergy Intermediate HIVES Verified 09/25/20 18:40 Sulfa (Sulfonamide Allergy Intermediate HIVES Verified 09/25/20 18:40 Antibiotics) Home Medications Medication Instructions Recorded Confirmed Type calcium carbonate 600 mg calcium 600 mg PO .BID/3XW tab 06/27/18 09/25/20 History (1,500 mg) tablet multivitamin 1 tab PO DAILY 06/27/18 09/25/20 History omega-3 fatty acids 1,000 mg 1,000 mg PO DAILY 06/27/18 09/25/20 History capsule cyclosporine 0.05 % eye drops in a 1 drops OP Q12H 06/30/18 09/25/20 History dropperette denosumab 60 mg/mL subcutaneous 60 mg SQ Q6MO ml 06/14/19 09/25/20 History syringe sertraline 50 mg tablet 50 mg PO DAILY #90 tab 01/11/20 09/25/20 Rx metoprolol succinate 50 mg 50 mg PO DAILY #90 tab 05/27/20 09/25/20 Rx tablet,extended release 24 hr simvastatin 10 mg tablet 20 mg PO QPM #180 tab 05/27/20 09/25/20 Rx cholecalciferol (vitamin D3) 50 50 mcg PO DAILY 06/14/20 09/25/20 History mcg (2,000 unit) capsule loratadine [Claritin] 10 mg PO BID 07/17/20 09/25/20 History ondansetron 8 mg PO Q12H PRN 07/17/20 09/25/20 History polyethylene glycol 3350 [Miralax] 17 g PO DAILY PRN 07/17/20 09/25/20 History mometasone 50 mcg/actuation nasal 1 spray INTRANASAL DAILY PRN #17 g 07/31/20 09/25/20 Rx spray miscellaneous throat product 10 ml BUCCAL TID PRN 08/26/20 09/25/20 History furosemide [Lasix] 20 mg PO DAILY #30 tab 08/27/20 09/25/20 Rx potassium chloride 10 meq PO DAILY #30 tab 08/27/20 09/25/20 Rx fentanyl 12 mcg/hr transdermal 1 patch TRANSDERMAL Q72H 09/12/20 09/25/20 History patch gabapentin 400 mg PO TID 09/25/20 09/25/20 History Patient History Medical History Cancer Herpes zoster Hypercholesteremia Left-sided chest wall pain Lumbar spinal stenosis Lung nodule Peripheral neuropathy due to chemotherapy Syncope Surgical History H/O colonoscopy H/O dilation and curettage H/O hysterectomy with oophorectomy H/O oophorectomy H/O oral surgery H/O: hysterectomy History of back surgery History of cataract surgery History of shoulder surgery History of sinus surgery Hx of appendectomy Hx of tonsillectomy Status post cryoablation Buttocks Family History Mother Lymphoma Father Alzheimer disease Unknown Uterine cancer Grandfather (Maternal) Myocardial infarction Denies family history of Ovarian cancer Prostate cancer Breast cancer Colorectal cancer Social History Smoking Status: Never smoker Second Hand Exposure: No; Do You Dip or Chew Tobacco: No; Hx Alcohol Use: No Hx Substance Use: No Preferred Language: Bermudian Communication Ability: Effective Hearing Ability: Use of Hearing Aid 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 Beliefs That Will Affect Care: None marital status: Current Living Situation: Spouse current occupational status: retired How many Children do You have: 2 Other Information That Helps Us Care for You: No Feels Safe at Home: Yes Safety Concerns: Feels Safe At This Time Dental Care, Regularly: Yes Physical Activity Frequency: 1-2 Times per Week Physical Activity Frequency Comment: swimming and walking Seatbelt Use: always Sunscreen Use: Yes (sometimes) Assistive Devices: Cane Physical Exam Constitutional: + thin and + frail appearing Eyes: - PERRL, EOMI ENMT: external ear and nose normal, oropharynx normal Neck: normal visual inspection Respiratory: normal respiratory effort, lungs clear to auscultation Cardiovascular: - irregular tachy - 1+ pitting edema in lower extremity bilaterally Chest (Breasts): Additional Comments: right upper chest with port in place w/d/i Gastrointestinal (Abdomen): - soft, nTTP, no guarding Skin: - pale, no rashes Neurologic: no focal motor deficits Speech / Cognition: normal speech Motor/Sensory: normal movement Psychiatric: A+Ox3, euthymic affect Results & Data Results & Data ([facility]) Vital Signs (Past 12 Hours) Vital Signs Temp Pulse Resp BP Pulse Ox 09/26/20 11:09 36.8 C 105 H 22 129/67 100 09/26/20 10:46 117 H 09/26/20 10:09 36.7 C 112 H 31 H 129/56 L 98 09/26/20 09:39 36.3 C L 123 H 20 147/72 H 96 09/26/20 09:24 36.3 C L 123 H 20 147/72 H 96 09/26/20 09:07 36.5 C 116 H 18 116/61 97 09/26/20 09:01 36.5 C 116 H 18 116/61 97 09/26/20 08:41 36.8 C 135 H 16 145/76 H 98 09/26/20 08:14 36.7 C 123 H 16 140/75 96 09/26/20 07:59 36.8 C 118 H 18 132/77 97 09/26/20 07:42 36.9 C 117 H 18 136/65 97 09/26/20 06:51 36.6 C 101 H 18 132/75 93 09/26/20 06:25 36.8 C 113 H 18 120/57 L 96 09/26/20 05:25 36.5 C 103 H 16 128/78 97 09/26/20 04:25 36.5 C 115 H 18 130/75 98 09/26/20 03:55 36.4 C L 108 H 18 121/67 98 09/26/20 03:40 36.9 C 101 H 18 120/72 97 09/26/20 03:39 36.9 C 101 H 18 120/72 97 09/26/20 03:24 36.7 C 102 H 18 115/73 93 09/26/20 03:14 36.7 C 102 H 16 115/73 93 09/26/20 02:56 36.7 C 88 16 130/49 L 93 09/26/20 01:56 36.6 C 115 H 16 128/89 95 09/26/20 01:55 36.6 C 115 H 16 128/89 95 09/26/20 00:56 36.8 C 110 H 16 132/69 97 09/26/20 00:26 36.6 C 100 H 16 121/66 91 09/26/20 00:21 103 H 09/26/20 00:11 36.6 C 108 H 16 124/71 95 CBC Results Results Complete Blood Count Results: RBC 1.90 M/uL (4.2-5.4) L 09/26/20 WBC 1.75 K/uL (4.8-10.8) L 09/26/20 Hgb 6.0 g/dL (12.0-16.0) L* 09/26/20 Hct 17.6 % (37-47) L* 09/26/20 Plt Count 12 K/uL (130-400) L* 09/26/20 Chemistry (BMP) Results BMP Results: Sodium 134 mmol/L (136-145) L 09/26/20 Potassium 3.3 mmol/L (3.5-5.1) L 09/26/20 Chloride 100 mmol/L (98-107) 09/26/20 BUN 18 mg/dl (7-18) 09/26/20 Creatinine 0.43 mg/dl (0.6-1.2) L 09/26/20 Glucose 99 mg/dl (70-99) 09/26/20 Resident Activity Tracking Resident Involvement: Resident Care Provided Care Provided: [facility]
--- NOTE | 2020-09-26 13:45 | Billing Data ---
Date of Service September 26, 2020 Coding Level of Care Code Critical Care 1st 30-74 mins Time Spent (min) 31
[2020-09-26 14:36] LABS: Hematocrit (blood only) 17.6 % (37-47); Mean Corpuscular Hemoglobin 31.6 pg (25-34); Mean Corpuscular Hgb Conc 34.1 g/dL (32-36); Mean Corpuscular Volume 92.6 fL (80-100); Mean Platelet Volume 8.7 fL (7.4-10.4); Nucleated RBC # (auto) 0.02 K/uL (0-0); Platelet Count 12 K/uL (130-400); RDW Coefficient of Variation 17.8 % (11.5-14.5); RDW Standard Deviation 59.8 fL (36.4-46.3); White Blood Count 1.75 K/uL (4.8-10.8)
[2020-09-26 15:19] LABS: ALC (manual) 0.14 K/uL (1.2-3.4); ANC (manual) 1.38 K/uL (1.4-6.5); Basophils # (manual) 0.02 K/uL (0-0.2); Basophils % (manual) 1.4 %; Dohle Bodies 1+; Eosinophils # (manual) 0.01 K/uL (0-0.5); Eosinophils % (manual) 0.7 %; Lymphocytes # (manual) 0.14 K/uL (1.2-3.4); Lymphocytes % (manual) 8.2 %; Monocytes # (manual) 0.19 K/uL (0.11-0.59); Neutrophils # (manual) 1.38 K/uL (1.4-6.5); Neutrophils % (manual) 78.7 %; Platelet Estimate SIGNIFIC DECREASED (Normal)
--- NOTE | 2020-09-26 16:31 | Hospitalist Progress Note ---
Date of Service September 26, 2020 Assessment & Plan (1) Acute blood loss anemia: this pt has acute blood loss anemia secondary to chemotherapy for metastatic leiomyosarcoma. pt was supported with blood products, and after discussion with Dr Schulte will likely continue to require blood product support as her chemo regime has tendency to have significant bone marrow suppression 3 units of platelets, 2 units of FFP and 1 unit of blood (2) Pancytopenia: Likely related to recent chemo (3) CHF (congestive heart failure): pt has a history of chronic diastolic heart failure (4) Leiomyosarcoma: CT chest abdomen and pelvis 09/22/20 Impression. Progressively worsened metastatic disease throughout the chest includes an enhancing pathologic 3.9 x 3.3 cm right axillary/subpectoral lymph node which previously measured 1.4 x 2.0 cm. Metastatic disease of the left pectoralis muscle is redemonstrated with associated muscle enlargement and adjacent subcutaneous stranding. There are progressively worsened numerous soft tissue nodules of the chest which include a 4.9 x 4.1 cm intramuscular mass anterolateral to the right scapula which previously measured 3.8 cm in greatest dimension. Enhancing mass interposed between the right 10th and 11th ribs, measuring 3.0 cm previously measured 1.8 cm. Progressively worsened metastatic disease of the chest, abdomen and pelvis as above includes progressive pulmonary metastasis with numerous intramuscular and soft tissue nodules with increased size of numerous metastatic implants. Enlarging heterogeneous soft tissue mass, measuring 5.8 x 5.2 cm is again noted abutting the posterior aspect of the pancreatic body, previously measured at 3.4 x 2.8 cm. Additionally, there is a new soft tissue mass involving the pancreatic neck/proximal body with mild associated pancreatic ductal dilation. A large metastatic focus inferior to the gurpreet hepatis, 5.1 cm, previously 2.5 cm. Progressive numerous soft tissue and intramuscular metastasis of the pelvis includes a 6.7 cm left inguinal lesion, previously 5.7 cm. A large lesion with internal fat attenuation involves the right gluteal musculature, 10.9 cm. No acute fracture. No new suspicious bone lesion. Vertebra plana at L5 is unchanged. Sclerotic changes of the sacrum are likely secondary to post radiation. New small pleural effusions, likely malignant. Cardiomegaly with small pericardial effusion. Nonobstructing bilateral nephrolithiasis. No bowel obstruction. 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 Prior to transfer she developed crushing chest pain without acute changes on EKG Patient had improvement of her chest pain after transfusion. Mid afternoon CBC parameters showed her hemoglobin had risen to 6 and platelet count risen to 12 she had had no more coughing or vomiting of blood her atrial fibrillation rate also did improve with transfusion Review of Systems Review of Systems: Moderate distress and fatigue no headache, blurry or double vision no speech or swallowing issues Chest pain associate with anemia and rapid heart rate Anemia associated shortness of breath, cough with production of blood no abdominal pain, nausea or vomiting no dysuria, hematuria or frequency no focal joint pain or swelling no back pain, CVA tenderness or radicular pain no bruising, bleeding or rashes no focal signs of weakness or numbness or altered sensation Physical Exam Physical Exam: The patient appeared pale, weak and chronically ill Vital signs as documented. afib rvr at times Head exam is normocephalic atraumatic no scleral icterus Neck is without JVD, thyromegaly, or carotid bruits. Lungs are diminished at bases Cardiac exam, irregular and tachycardic. Abdominal exam reveals normal bowel sounds, soft non tender, no masses Extremities are nonedematous and both pedal pulses are present Neurologic exam is alert and oriented, no focal loss of strength or sensation Skin is without bruises or rashes Psychologically is with concerns for depression. Results & Data Results & Data ([facility]) Vital Signs (Past 12 Hours) Vital Signs Temp Pulse Resp BP Pulse Ox 09/26/20 16:06 98.4 F 91 H 20 118/85 97 09/26/20 14:01 98.2 F 101 H 16 129/71 96 09/26/20 13:31 98.4 F 100 H 17 131/86 96 09/26/20 13:23 98.4 F 100 H 21 120/69 96 09/26/20 13:16 103 H 09/26/20 12:56 98.8 F 117 H 20 117/68 98 09/26/20 12:09 98.2 F 93 H 20 127/108 H 96 09/26/20 11:09 98.2 F 105 H 22 129/67 100 09/26/20 10:46 117 H 09/26/20 10:09 98.1 F 112 H 31 H 129/56 L 98 09/26/20 09:39 97.3 F L 123 H 20 147/72 H 96 09/26/20 09:24 97.3 F L 123 H 20 147/72 H 96 09/26/20 09:07 97.7 F 116 H 18 116/61 97 09/26/20 09:01 97.7 F 116 H 18 116/61 97 09/26/20 08:41 98.2 F 135 H 16 145/76 H 98 09/26/20 08:14 98.1 F 123 H 16 140/75 96 09/26/20 07:59 98.2 F 118 H 18 132/77 97 09/26/20 07:42 98.4 F 117 H 18 136/65 97 09/26/20 06:51 97.9 F 101 H 18 132/75 93 09/26/20 06:25 98.2 F 113 H 18 120/57 L 96 09/26/20 05:25 97.7 F 103 H 16 128/78 97 09/26/20 04:25 97.7 F 115 H 18 130/75 98 PG Care Time/CCT Total # of Minutes Spent Total Time Spent with Patient: Total time spent is greater than 50% in coordination of care (as documented) at patient's floor/unit and/or counseling patient: Coding Level of Care Code 39551 Subseq Hosp Care Lvl 3 Diagnoses Acute blood loss anemia D62 Pancytopenia D61.818 CHF (congestive heart failure) I50.9 Heart failure chronicity: acute Heart failure type: unspecified Leiomyosarcoma C49.9 Hypertension I10 Hypercholesterolemia E78.00 Peripheral neuropathy due to chemotherapy G62.0; T45.1X5A DVT prophylaxis Z29.9 (1) CHF (congestive heart failure) Heart failure chronicity: acute Heart failure type: unspecified Qualified Code(s): I50.9 - Heart failure, unspecified
--- NOTE | 2020-09-26 17:04 | Electrocardiogram Report ---
Test Reason : Blood Pressure : / mmHG Vent. Rate : 087 BPM Atrial Rate : 094 BPM P-R Int : 120 ms QRS Dur : 110 ms QT Int : 392 ms P-R-T Axes : 093 051 065 degrees QTc Int : 471 ms Sinus rhythm with Premature supraventricular complexes Poor R wave progression, consider anterior MD vs. lead placement vs. LVH Abnormal ECG Confirmed by Gamaliel Alvarez ([id number]) on 09/26/2020 5:04:31 PM Referred By: REFERRED SELF Confirmed By:Chino Alvarez
--- NOTE | 2020-09-26 17:46 | Consultation Report ---
DATE OF CONSULTATION: 09/26/2020 GI consult supplement to the one done by Carrie Ventura earlier today: I reviewed the chart, labs and x-ray and interviewed and examined the patient. She has been admitted with pancytopenia with severe depression of all cell lines with spontaneous bleeding from her nose and gums. She has seen some blood in her stool as well, probably from swallowed blood. She does not have any abdominal pain per se, but definitely has loss of appetite over the last 2 weeks with decreased p.o. intake. She is being treated for a uterine leiomyosarcoma that was diagnosed about 4 or 5 years ago and her chemo is being directed from [facility] in [place], but administered locally at [facility]. She had a recent change in her chemotherapy and has gotten worse and presented with bleeding gums and severe anemia, thrombocytopenia and neutropenia. At this point, her main problem is her pancytopenia and I am sure this is responsible for her blood loss. She is currently receiving platelet transfusions and blood, and hopefully, this will reduce her risk for further bleeding. At this point, she is a very poor candidate for any kind of endoscopic intervention. She did have a colonoscopy by Dr. Hillman 4 years ago and had a couple of small polyps removed, but other than a few diverticula and nonbleeding hemorrhoids, no other abnormalities were found. We will continue to follow the patient, but we will hold off on any endoscopic intervention at this point.
[2020-09-26 22:46] LABS: Nucleated RBC # (auto) 0.02 K/uL (0-0); Nucleated RBC % (auto) 0.6 %
[2020-09-26 22:54] LABS: Hematocrit (blood only) 21.3 % (37-47); Hemoglobin 7.2 g/dL (12.0-16.0); Mean Corpuscular Hemoglobin 30.5 pg (25-34); Mean Corpuscular Hgb Conc 33.8 g/dL (32-36); Mean Corpuscular Volume 90.3 fL (80-100); Mean Platelet Volume 8.9 fL (7.4-10.4); Platelet Count 40 K/uL (130-400); RDW Coefficient of Variation 18.9 % (11.5-14.5); RDW Standard Deviation 61.2 fL (36.4-46.3); Red Blood Count 2.36 M/uL (4.2-5.4); White Blood Count 2.69 K/uL (4.8-10.8)
[2020-09-26 23:20] LABS: Eosinophils # (auto) 0.04 K/uL (0-0.5); Eosinophils % (auto) 1.5 %; Immature Granulocytes # (auto) 0.02 K/uL (0.00-0.02); Immature Granulocytes % (auto) 0.7 %; Lymphocytes # (auto) 0.23 K/uL (1.2-3.4); Lymphocytes % (auto) 8.6 %; Monocytes % (auto) 22.3 %; Neutrophils % (auto) 66.9 %; Toxic Granulation 1+
[2020-09-27] MEDS ORDERED: METOPROLOL TARTRATE 1 MG/ML VIAL IV STA (01:23)
[2020-09-27] MEDS ORDERED: FUROSEMIDE 20 MG in SYRINGE 0 ML IV ONE (01:23)
[2020-09-27] MEDS ORDERED: FUROSEMIDE 40 MG/4 ML VIAL IV ONE ×3 (01:24→07:23)
[2020-09-27 02:31] LABS: Hematocrit (blood only) 28.1 % (37-47); Hemoglobin 9.4 g/dL (12.0-16.0); Mean Corpuscular Hemoglobin 30.1 pg (25-34); Mean Corpuscular Hgb Conc 33.5 g/dL (32-36); Mean Corpuscular Volume 90.1 fL (80-100); Nucleated RBC # (auto) 0.03 K/uL (0-0); Nucleated RBC % (auto) 0.6 %; RDW Coefficient of Variation 18.6 % (11.5-14.5); RDW Standard Deviation 60.6 fL (36.4-46.3); Red Blood Count 3.12 M/uL (4.2-5.4); White Blood Count 4.78 K/uL (4.8-10.8)
[2020-09-27 02:34] LABS: Mean Platelet Volume 9.7 fL (7.4-10.4); Platelet Count 49 K/uL (130-400)
[2020-09-27 02:58] LABS: Basophils # (auto) 0.01 K/uL (0-0.2); Basophils % (auto) 0.2 %; Dohle Bodies 1+; Eosinophils # (auto) 0.04 K/uL (0-0.5); Eosinophils % (auto) 0.8 %; Immature Granulocytes # (auto) 0.17 K/uL (0.00-0.02); Immature Granulocytes % (auto) 3.6 %; Lymphocytes # (auto) 0.36 K/uL (1.2-3.4); Lymphocytes % (auto) 7.5 %; Monocytes # (auto) 0.87 K/uL (0.11-0.59); Monocytes % (auto) 18.2 %; Neutrophils # (auto) 3.33 K/uL (1.4-6.5); Neutrophils % (auto) 69.7 %; Toxic Granulation 1+
[2020-09-27] MEDS: PANTOprazole 40 MG in DEXTROSE 5% 100 ML IV SCH ×3 (03:51→14:41)
[2020-09-27 05:13] LABS: Hematocrit (blood only) 25.4 % (37-47); Hemoglobin 8.5 g/dL (12.0-16.0); Mean Corpuscular Hemoglobin 29.9 pg (25-34); Mean Corpuscular Hgb Conc 33.5 g/dL (32-36); Mean Corpuscular Volume 89.4 fL (80-100); Nucleated RBC # (auto) 0.03 K/uL (0-0); Nucleated RBC % (auto) 0.6 %; RDW Coefficient of Variation 18.8 % (11.5-14.5); RDW Standard Deviation 61.4 fL (36.4-46.3); Red Blood Count 2.84 M/uL (4.2-5.4); White Blood Count 3.87 K/uL (4.8-10.8)
[2020-09-27 05:20] LABS: Mean Platelet Volume 9.8 fL (7.4-10.4); Platelet Count 37 K/uL (130-400)
[2020-09-27 05:31] LABS: BUN Creatinine Ratio 42.7 (10-20); Creatinine Clr Calc Pharmacy 108.6 ml/min; Est GFR (African American) 109.7; Est GFR (Non-African American) 94.6; Potassium 3.1 mmol/L (3.5-5.1)
[2020-09-27 05:59] LABS: INR 1.3 (0.9-1.1); Partial Thromboplastin Ratio 0.8; Partial Thromboplastin Time 23.6 Seconds (21.0-31.0); Prothrombin Time 13.1 Seconds (9.0-12.0)
--- NOTE | 2020-09-27 06:22 | Critical Care Progress Note ---
Date of Service September 27, 2020 Assessment & Plan (1) Pancytopenia: Admission and Anticipated Discharge Date Admission Date: September 25, 2020 Reason Critically Ill: 74 yo F with pMHx. 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 24H events: Patient has developed respiratory distress this morning thought to be secondary to fluid overload 2/2 blood products. NEURO - History of metastasis to the brain, alert and oriented with no acute concerns CARDIAC/VASCULAR Chest pain w/ troponin 0.023 -> 0.142 -> 0.113, potentially demand ischemia given anemia A. fib w/ RVR potentially due to anemia - Continue Metoprolol succinate 50 daily - has Metoprolol Tartrate 5mg Q5M for HR > 150 - added 15 Diltiazem this am RESPIRATORY - Acute respiratory distress, in the setting of receiving multiple blood products concerning for flash pulmonary edema XR, with bilateral effusions, and increase lung markings - given Lasix 40 IV this AM - given one time dose of Morphine - BiPAP ordered but patient did not tolerate this GI/NUTRITION - full liquid diet seen by Dr. Gleason with GI, no plan for scope at this time RENAL/LYTES - cr. 0.43 IVF: held Hypokalemia 3.1 - given 30 k-rider and oral replacement - Tello in place ENDO - no acute concerns HEME - Pancytopenia seen by Dr. Schulte with Hematology Oncology - received FFP, Blood and platelets - continue to follow CBC ID - afebrile, tachycardic (although this is likely due to anemia), lactate 3.1 down from 3.4 earlier this morning LINES/IV ACCESS - PIV X2, port R chest, Tello DVT PROPHYLAXIS - held in the setting of bleeding Code Status: After discussion between flower arranger and patient, she changed her status to DNI. Palliative care was consulted to further discuss goals of care with patient and family. Supervising Physician Co-Signing Physician Notes Dr. Otero Was the resident-physician during care of patient. I separately evaluated patient for lundy portions of the history and the exam. I was present during the critical portion of medical decision making, and I discussed the case with the resident. I generally agree with the findings and plan except for any additions/exceptions noted. Patient given morphine and IV Lasix this morning due to increased work of breathing. She was also placed on high flow nasal cannula. Oxygenation and respiratory status improved. She likely had volume overload related to all the recent blood products. She did have atrial fibrillation with rapid ventricular response. She received IV diltiazem. She is going to transition towards comfort measures only and hospice care. She is safe to be downgraded to the floor at this point. Subjective This morning Rosio White was struggling to breath and had increased work of breathing, she was not having any chest pain at the time. She did have melena overnight. She was given Lasix and BiPAP was ordered but she did not tolerate this. In the setting of respiratory distress her code status was clarified and she would not like to be intubated. Dr. Schulte was also in the room this morning and he clarified with her that she would not like to continue chemotherapy at this time. Her was able to come and visit with her in the ICU. Palliative care was brought on board to help elicit the patient's goal of care moving forward. Review of Systems Review of Systems: - unable to obtain due to respiratory distress Physical Exam Constitutional: + acute distress Eyes: PERRL, conjunctivae normal, anicteric sclerae ENMT: external ear and nose normal, oropharynx normal Neck: normal visual inspection Respiratory: - increased work of breathing with belly breathing and retractions - crackles throughout Cardiovascular: - irregular rate - slight lower extremity edema Chest (Breasts): Additional Comments: - port in right upper chest Gastrointestinal (Abdomen): - soft, nTTP Results & Data Results & Data ([facility]) Vital Signs (Past 12 Hours) Vital Signs Temp Pulse Resp BP Pulse Ox 09/27/20 05:45 94 H 20 134/88 100 09/27/20 05:15 92 H 19 147/81 H 100 09/27/20 04:45 79 17 129/77 99 09/27/20 04:15 88 19 136/73 99 09/27/20 03:45 100 H 18 133/83 98 09/27/20 03:43 37.1 C 09/27/20 03:15 102 H 20 128/75 98 09/27/20 02:45 111 H 23 151/72 H 97 09/27/20 02:15 123 H 25 H 143/107 H 93 09/27/20 01:45 100 H 24 135/95 96 09/27/20 01:35 36.5 C 104 H 21 129/95 98 09/27/20 01:31 143 H 183/129 H 09/27/20 00:45 36.6 C 115 H 22 157/95 H 100 09/27/20 00:15 37.0 C 113 H 20 153/68 H 100 09/26/20 23:54 112 H 20 141/87 H 100 09/26/20 23:39 36.7 C 126 H 24 149/83 H 100 09/26/20 23:21 37.3 C 113 H 19 135/92 100 09/26/20 21:15 37.2 C 132 H 22 151/74 H 89 L 09/26/20 20:45 36.8 C 94 H 24 115/76 95 09/26/20 20:15 37.0 C 95 H 23 102/63 92 09/26/20 19:05 37.0 C 84 20 132/82 96 09/26/20 18:54 37.0 C 123 H 16 127/85 93 09/26/20 18:38 37.4 C 102 H 17 127/88 98 CBC Results Results Complete Blood Count Results: RBC 2.75 M/uL (4.2-5.4) L 09/27/20 WBC 3.86 K/uL (4.8-10.8) L 09/27/20 Hgb 8.4 g/dL (12.0-16.0) L 09/27/20 Hct 24.6 % (37-47) L 09/27/20 Plt Count 31 K/uL (130-400) L 09/27/20 Chemistry (BMP) Results BMP Results: Sodium 136 mmol/L (136-145) 09/27/20 Potassium 3.6 mmol/L (3.5-5.1) 09/27/20 Chloride 100 mmol/L (98-107) 09/27/20 BUN 19 mg/dl (7-18) H 09/27/20 Creatinine 0.55 mg/dl (0.6-1.2) L 09/27/20 Glucose 127 mg/dl (70-99) H 09/27/20 Resident Activity Tracking Resident Involvement: Resident Care Provided Care Provided: Adult [facility] Medicine
[2020-09-27] MEDS ORDERED: POTASSIUM CHLORIDE CRTAB 20 MEQ TABCR PO STA (06:39)
[2020-09-27] MEDS: POTASSIUM CHLORIDE / WTR 10 MEQ/100 ML PLCT IV SCH ×3 (06:52→09:23)
[2020-09-27] MEDS ORDERED: MoRPHine SULFATE 2 MG/ML CARP IV STA (07:18)
[2020-09-27] MEDS ORDERED: MoRPHine SULFATE 2 MG/ML CARP ONE (07:19)
[2020-09-27] MEDS: ONDANSETRON INJ 2 MG/ML 2 ML VIAL IV SCH ×5 (07:30→19:47)
[2020-09-27] MEDS ORDERED: FUROSEMIDE 40 MG in SYRINGE 0 ML IV ONE (07:30)
[2020-09-27] MEDS ORDERED: dilTIAZem HCl 5 MG/ML 5 ML VIAL IV ONE (07:35)
--- NOTE | 2020-09-27 07:38 | XRay Report ---
XR chest 1V portable HISTORY: Shortness of breath. COMPARISON: Chest 08/26/2020. FINDINGS: No pneumothorax. Small bilateral pleural effusions and bibasilar densities have slightly pr ogressed. There is progressive interstitial/vascular thickening consistent with mild pulmonary edema. Left upper lobe focal airspace opacity remains unchanged. The heart is mildly enlarged. There is a r ight subclavian Port-A-Cath which terminates in the distal SVC. Multiple bilateral pulmonary masses/n odules are again noted and better appreciated on the prior chest CT. IMPRESSION: 1. Interval progression of the interstitial pulmonary edema, small bilateral pleural effusions, bibas ilar densities. 2. Pulmonary metastatic disease is again noted. ACT 112: Negative or not required by law. Electronically signed by: Armani Mcrae M.D. 09/27/2020 7:37 AM
[2020-09-27] MEDS ORDERED: dilTIAZem HCl 5 MG/ML 5 ML VIAL IV STA (07:39)
[2020-09-27] MEDS ORDERED: POTASSIUM CHLORIDE / WTR 10 MEQ/100 ML PLCT IV SCH (08:00)
--- NOTE | 2020-09-27 08:31 | Progress Notes ---
DATE: 09/27/2020 DIAGNOSES: 1. Acute respiratory failure. 2. Gingival and GI hemorrhage. 3. Epistaxis. 4. Pancytopenia attributable to chemotherapeutic effect. 5. Severe anemia/thrombocytopenia. 6. Metastatic high-grade uterine leiomyosarcoma. 7. Hypoalbuminemia. SUBJECTIVE: The patient was seen and examined at bedside. Unfortunately, took a turn for the worse yesterday, transferred to the intensive care unit where she received transfusion of packed RBCs and single donor plateletpheresis. Unfortunately, but not surprising, she has now developed flash pulmonary edema. She was definitely an extremis at bedside this morning with a nonrebreather. Heart rate well into the 130s. A stat chest x-ray was ordered. The patient was administered low dose morphine for air hunger and diuresis. Attempted to engage in some discussion regarding her current clinical status. The patient suffers from end-stage metastatic leiomyosarcoma and thus do not recommend her being placed on mechanical ventilation. Perhaps a BiPAP with supplemental oxygen can be utilized as an affective bridge. The patient was quite anxious and while she did state she would stop chemotherapy, was unable to get her to make a decision regarding intubation and ventilation. Dr. Song came to the bedside as I completed my morning visit. OBJECTIVE: GENERAL: A very pleasant but anxious 74-year-old female in moderate distress. VITAL SIGNS: Temperature 37.1, pulse 94, respiratory rate 20, blood pressure 134/88. SKIN: Without rash or lesion. HEENT: Not performed. The patient has a nonrebreather in place. HEART: Tachy. LUNGS: Coarse rales bilaterally, worse right versus left. ABDOMEN: Soft, nontender, nondistended. EXTREMITIES: No clubbing, cyanosis or edema. NEUROLOGIC: Grossly intact. LABORATORY DATA: WBC count 3870, hemoglobin 8.5, platelet count 37,000, absolute neutrophil count 1380. Sodium 136, potassium 3.1, chloride 102, creatinine 0.49, BUN 21, carbon dioxide 28. Lactate 3.1. Stool occult blood screening is positive. RADIOGRAPHIC DATA: Cephalization is consistent with CHF is seen. IMPRESSION: 1. Acute respiratory failure. 2. Gastrointestinal bleeding. 3. Epistaxis. 4. Pancytopenia attributable to chemotherapeutic effect. 5. Metastatic high-grade leiomyosarcoma. 6. Exacerbation of congestive heart failure/volume overload. 7. Hypoalbuminemia. PLAN: I came to the ICU to a visit with the patient at bedside. Unfortunately, because of her anxious state, was unable to really convince the patient not to be placed on ventilator. Her blood pressure and pulse rate are both markedly increased and she struggles to breathe. Again, Dr. Song came to the bedside as I was finishing my visit. A portable chest x-ray was performed with findings consistent with exacerbation of CHF/volume overload. I reminded patient she suffers from terminal disease and would not recommend being placed on mechanical ventilation. Alternatively, bridging with BiPAP would be reasonable while she undergoes diuresis. She was provided low dose morphine intravenously for air hunger. She would like to speak with her at some point. I was able to convince the patient to abandon all further salvage chemotherapy. Once she becomes medically stable, I would be happy to reengage with her again to formally discuss end of life care. Her peripheral blood counts reflect improvement with the transfusion of blood products given yesterday. Continue to monitor peripheral counts on daily basis. I suspect gastroenterology is not terribly anxious to take her for endoscopy. We will continue to follow the patient during her hospitalization. Thank you very much for allowing me to participate in her care.
--- NOTE | 2020-09-27 08:40 | Gastroenterology Progress Note ---
Date of Service September 27, 2020 Assessment & Plan (1) Acute blood loss anemia: (2) Pancytopenia: The patient is a 74-year-old female with past medical history significant for uterine leiomyosarcoma admitted with pancytopenia due to chemotherapy with recent onset of bleeding from gums with history of epistaxis. Patient has received platelet transfusion, packed red blood cells, and plasma. She did have improvement in blood counts noted this morning hemoglobin 8.5, hematocrit 25.5, platelet count 37. She remains a poor candidate for any kind of endoscopic intervention. Please refer to supervising physician addendum for further recommendations. Admission and Anticipated Discharge Date Admission Date: September 25, 2020 Subjective Patient awakens easily with verbal stimuli. Spouse at bedside. This morning she was struggling to breath with increased work of breathing, she was not having any chest pain. She had black loose to liquid stools overnight. Denies abdominal pain. Reports nausea improved. Denies vomiting. Review of Systems Review of Systems: All systems reviewed & are unremarkable except as noted in HPI & below Physical Exam Constitutional: + ill appearing and + frail appearing ENMT: Ears: + hearing impairment ([place]) Neck: normal visual inspection Respiratory: - crackles throughout Cardiovascular: - irregular rate - slight lower extremity edema Chest (Breasts): Additional Comments: - port in right upper chest Gastrointestinal (Abdomen): Inspection/Auscultation: abdomen normal to inspection; abdomen not distended Percussion/Palpation: abdomen soft; abdomen nontender - soft, nTTP Psychiatric: Orientation: alert and oriented x 3 Results & Data ([facility]) Vital Signs (Past 12 Hours) Vital Signs Temp Pulse Pulse Resp BP Pulse Ox 09/27/20 07:50 117 H 30 H 95 09/27/20 05:45 94 H 20 134/88 100 09/27/20 05:15 92 H 19 147/81 H 100 09/27/20 04:45 79 17 129/77 99 09/27/20 04:15 88 19 136/73 99 09/27/20 03:45 100 H 18 133/83 98 09/27/20 03:43 37.1 C 09/27/20 03:15 102 H 20 128/75 98 09/27/20 02:45 111 H 23 151/72 H 97 09/27/20 02:15 123 H 25 H 143/107 H 93 09/27/20 01:45 100 H 24 135/95 96 09/27/20 01:35 36.5 C 104 H 21 129/95 98 09/27/20 01:31 143 H 183/129 H 09/27/20 00:45 36.6 C 115 H 22 157/95 H 100 09/27/20 00:15 37.0 C 113 H 20 153/68 H 100 09/26/20 23:54 112 H 20 141/87 H 100 09/26/20 23:39 36.7 C 126 H 24 149/83 H 100 09/26/20 23:21 37.3 C 113 H 19 135/92 100 09/26/20 21:15 37.2 C 132 H 22 151/74 H 89 L 09/26/20 20:45 36.8 C 94 H 24 115/76 95 Laboratory Results - last 24 hr 09/25/20 09/25/20 09/26/20 18:06 18:06 09:04 WBC 1.35 L RBC 2.14 L Hgb 6.9 L* Hct 20.6 L* MCV 96.3 MCH 32.2 MCHC 33.5 RDW Std Deviation 60.4 H RDW Coeff of Zhao 17.2 H Plt Count 2 L* MPV Immature Gran % (Auto) Neut % (Auto) Lymph % (Auto) Dare % (Auto) Eos % (Auto) Baso % (Auto) Neut # (Auto) Lymph # (Auto) Dare # (Auto) Eos # (Auto) Baso # (Auto) Immature Gran # (Auto) Absolute Nucleated RBC 0.02 H Nucleated RBC % (auto) 1.3 Neutrophils % (Manual) 80.5 Lymphocytes % (Manual) 8.0 Monocytes % (Manual) 11.5 Eosinophils % (Manual) Basophils % (Manual) Neutrophils # (Manual) 1.09 L Total Absolute Neuts 1.09 L Lymphocytes # (Manual) 0.11 L Total Abs Lymphocytes 0.11 L Monocytes # (Manual) 0.16 Eosinophils # (Manual) Basophils # (Manual) Toxic Granulation 2+ Dohle Bodies 1+ Platelet Estimate SIGNIFIC DECREASED PT INR APTT PTT Ratio Sodium Potassium Chloride Carbon Dioxide Anion Gap BUN Creatinine Est Cr Clr Drug Dosing Est GFR ( Amer) Est GFR (Non-Af Amer) BUN/Creatinine Ratio Glucose POC Glucose Lactate 3.4 H* Calcium Troponin I Stool Occult Bld Scrn Blood Type O Positive Antibody Screen NEGATIVE Crossmatch See Detail 09/26/20 09/26/20 09/26/20 09:04 10:52 13:49 WBC 1.75 L RBC 1.90 L Hgb 6.0 L* Hct 17.6 L* MCV 92.6 MCH 31.6 MCHC 34.1 RDW Std Deviation 59.8 H RDW Coeff of Zhao 17.8 H Plt Count 12 L* MPV 8.7 Immature Gran % (Auto) Neut % (Auto) Lymph % (Auto) Dare % (Auto) Eos % (Auto) Baso % (Auto) Neut # (Auto) Lymph # (Auto) Dare # (Auto) Eos # (Auto) Baso # (Auto) Immature Gran # (Auto) Absolute Nucleated RBC 0.02 H Nucleated RBC % (auto) 1.0 Neutrophils % (Manual) 78.7 Lymphocytes % (Manual) 8.2 Monocytes % (Manual) 11.0 Eosinophils % (Manual) 0.7 Basophils % (Manual) 1.4 Neutrophils # (Manual) 1.38 L Total Absolute Neuts 1.38 L Lymphocytes # (Manual) 0.14 L Total Abs Lymphocytes 0.14 L Monocytes # (Manual) 0.19 Eosinophils # (Manual) 0.01 Basophils # (Manual) 0.02 Toxic Granulation Dohle Bodies 1+ Platelet Estimate SIGNIFIC DECREASED PT INR APTT PTT Ratio Sodium Potassium Chloride Carbon Dioxide Anion Gap BUN Creatinine Est Cr Clr Drug Dosing Est GFR ( Amer) Est GFR (Non-Af Amer) BUN/Creatinine Ratio Glucose POC Glucose Lactate 3.1 H* Calcium Troponin I 0.142 H* Stool Occult Bld Scrn Blood Type Antibody Screen Crossmatch 09/26/20 09/26/20 09/26/20 13:49 14:59 22:00 WBC RBC Hgb Cancelled Hct Cancelled MCV MCH MCHC RDW Std Deviation RDW Coeff of Zhao Plt Count MPV Immature Gran % (Auto) Neut % (Auto) Lymph % (Auto) Dare % (Auto) Eos % (Auto) Baso % (Auto) Neut # (Auto) Lymph # (Auto) Dare # (Auto) Eos # (Auto) Baso # (Auto) Immature Gran # (Auto) Absolute Nucleated RBC Nucleated RBC % (auto) Neutrophils % (Manual) Lymphocytes % (Manual) Monocytes % (Manual) Eosinophils % (Manual) Basophils % (Manual) Neutrophils # (Manual) Total Absolute Neuts Lymphocytes # (Manual) Total Abs Lymphocytes Monocytes # (Manual) Eosinophils # (Manual) Basophils # (Manual) Toxic Granulation Dohle Bodies Platelet Estimate PT INR APTT PTT Ratio Sodium Potassium Chloride Carbon Dioxide Anion Gap BUN Creatinine Est Cr Clr Drug Dosing Est GFR ( Amer) Est GFR (Non-Af Amer) BUN/Creatinine Ratio Glucose POC Glucose Lactate Calcium Troponin I 0.113 H* Stool Occult Bld Scrn Positive A Blood Type Antibody Screen Crossmatch 09/26/20 09/26/20 09/27/20 22:35 23:20 02:21 WBC 2.69 L 4.78 L RBC 2.36 L 3.12 L Hgb 7.2 L 9.4 L Hct 21.3 L 28.1 L MCV 90.3 90.1 MCH 30.5 30.1 MCHC 33.8 33.5 RDW Std Deviation 61.2 H 60.6 H RDW Coeff of Zhao 18.9 H 18.6 H Plt Count 40 L D 49 L MPV 8.9 9.7 Immature Gran % (Auto) 0.7 3.6 Neut % (Auto) 66.9 69.7 Lymph % (Auto) 8.6 7.5 Dare % (Auto) 22.3 18.2 Eos % (Auto) 1.5 0.8 Baso % (Auto) 0.0 0.2 Neut # (Auto) 1.80 3.33 Lymph # (Auto) 0.23 L 0.36 L Dare # (Auto) 0.60 H 0.87 H Eos # (Auto) 0.04 0.04 Baso # (Auto) 0.00 0.01 Immature Gran # (Auto) 0.02 0.17 H Absolute Nucleated RBC 0.02 H 0.03 H Nucleated RBC % (auto) 0.6 0.6 Neutrophils % (Manual) Lymphocytes % (Manual) Monocytes % (Manual) Eosinophils % (Manual) Basophils % (Manual) Neutrophils # (Manual) Total Absolute Neuts Lymphocytes # (Manual) Total Abs Lymphocytes Monocytes # (Manual) Eosinophils # (Manual) Basophils # (Manual) Toxic Granulation 1+ 1+ Dohle Bodies 1+ Platelet Estimate PT INR APTT PTT Ratio Sodium Potassium Chloride Carbon Dioxide Anion Gap BUN Creatinine Est Cr Clr Drug Dosing Est GFR ( Amer) Est GFR (Non-Af Amer) BUN/Creatinine Ratio Glucose POC Glucose 121 H Lactate Calcium Troponin I Stool Occult Bld Scrn Blood Type Antibody Screen Crossmatch 09/27/20 09/27/20 09/27/20 04:55 04:55 04:55 WBC 3.87 L RBC 2.84 L Hgb 8.5 L Hct 25.4 L MCV 89.4 MCH 29.9 MCHC 33.5 RDW Std Deviation 61.4 H RDW Coeff of Zhao 18.8 H Plt Count 37 L MPV 9.8 Immature Gran % (Auto) Neut % (Auto) Lymph % (Auto) Dare % (Auto) Eos % (Auto) Baso % (Auto) Neut # (Auto) Lymph # (Auto) Dare # (Auto) Eos # (Auto) Baso # (Auto) Immature Gran # (Auto) Absolute Nucleated RBC 0.03 H Nucleated RBC % (auto) 0.6 Neutrophils % (Manual) Lymphocytes % (Manual) Monocytes % (Manual) Eosinophils % (Manual) Basophils % (Manual) Neutrophils # (Manual) Total Absolute Neuts Lymphocytes # (Manual) Total Abs Lymphocytes Monocytes # (Manual) Eosinophils # (Manual) Basophils # (Manual) Toxic Granulation Dohle Bodies Platelet Estimate PT 13.1 H INR 1.3 H APTT 23.6 PTT Ratio 0.8 Sodium 136 Potassium 3.1 L Chloride 102 Carbon Dioxide 28 Anion Gap 6.0 BUN 21 H Creatinine 0.49 L Est Cr Clr Drug Dosing 108.6 Est GFR ( Amer) 109.7 Est GFR (Non-Af Amer) 94.6 BUN/Creatinine Ratio 42.7 H Glucose 130 H POC Glucose Lactate Calcium 8.0 L Troponin I Stool Occult Bld Scrn Blood Type Antibody Screen Crossmatch 09/27/20 05:30 WBC RBC Hgb Hct MCV MCH MCHC RDW Std Deviation RDW Coeff of Zhao Plt Count MPV Immature Gran % (Auto) Neut % (Auto) Lymph % (Auto) Dare % (Auto) Eos % (Auto) Baso % (Auto) Neut # (Auto) Lymph # (Auto) Dare # (Auto) Eos # (Auto) Baso # (Auto) Immature Gran # (Auto) Absolute Nucleated RBC Nucleated RBC % (auto) Neutrophils % (Manual) Lymphocytes % (Manual) Monocytes % (Manual) Eosinophils % (Manual) Basophils % (Manual) Neutrophils # (Manual) Total Absolute Neuts Lymphocytes # (Manual) Total Abs Lymphocytes Monocytes # (Manual) Eosinophils # (Manual) Basophils # (Manual) Toxic Granulation Dohle Bodies Platelet Estimate PT INR APTT PTT Ratio Sodium Potassium Chloride Carbon Dioxide Anion Gap BUN Creatinine Est Cr Clr Drug Dosing Est GFR ( Amer) Est GFR (Non-Af Amer) BUN/Creatinine Ratio Glucose POC Glucose 127 H Lactate Calcium Troponin I Stool Occult Bld Scrn Blood Type Antibody Screen Crossmatch
[2020-09-27] MEDS ORDERED: CALCIUM CARBONATE 1250MG TAB PO SCH (09:00)
[2020-09-27] MEDS: LORATADINE 10 MG TAB PO SCH ×2 (09:25→20:48)
[2020-09-27] MEDS: METOPROLOL SUCC 50MG EXT REL TAB PO SCH (09:26)
[2020-09-27] MEDS: POTASSIUM CHLORIDE 10 MEQ TABCR PO SCH (09:26)
[2020-09-27] MEDS: GABAPENTIN 400 MG CAP PO SCH ×3 (09:26→20:47)
[2020-09-27 11:03] LABS: Hematocrit (blood only) 25.4 % (37-47); Hemoglobin 8.7 g/dL (12.0-16.0); Mean Corpuscular Hemoglobin 30.5 pg (25-34); Mean Corpuscular Hgb Conc 34.3 g/dL (32-36); Mean Corpuscular Volume 89.1 fL (80-100); RDW Coefficient of Variation 19.1 % (11.5-14.5); RDW Standard Deviation 61.7 fL (36.4-46.3); Red Blood Count 2.85 M/uL (4.2-5.4); White Blood Count 4.98 K/uL (4.8-10.8)
[2020-09-27 11:08] LABS: Mean Platelet Volume 9.8 fL (7.4-10.4); Platelet Count 35 K/uL (130-400)
--- NOTE | 2020-09-27 11:11 | Cardiology Consultation ---
Date of Consultation September 27, 2020 Assessment & Plan (1) Acute on chronic diastolic (congestive) heart failure: 2. 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 Pericardial effusion 4. Moderate mitral regurgitation 5. Chronic left bundle-branch block 6. Pancytopenia 7. ? Atrial fibrillation with RVR -- ECGs reviewed all consistent with sinus rhythm. Sinus tachycardia likely appropriate with anemia. Patient with acute dyspnea/respiratory distress secondary to acute heart failure after receiving volume from multiple blood products for presenting pancytopenia. Patient with chronic diastolic heart failure and had similar episode in the ED back in 07/2020 after IV fluid bolus in the setting of epistaxis. Reviewed repeat limited echo. LV function unchanged. No significant pericardial effusion. IVC flat. Mitral regurgitation appears worse, moderate to severe. With diastolic dysfunction and valve disease patient will remain volume sensitive. Currently minimal residual congestion after IV diuresis. Would recommend resuming maintenance lasix 20mg manager terminal for comfort. Additional IV diuretics with future blood products. Continue metoprolol. Can discontinue diltiazem. History of Present Illness Attending Physician: Patricio Jack MD History of Present Illness Mrs. 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 Oliver). Admitted currently with gingival hemorrhage and panctyopenia secondary to chemotherapy. She has a cardiac history remarkable for chronic diastolic heart failure, hypertension, dyslipidemia frequent PVCs, chronic venous insufficiency and chronic left bundle branch block for years. Had a Lexiscan SPECT in 02/2015 which was negative for ischemia, EF >70%. Patient has been on multiple different chemotherapy regimens recently and unfortunately recent CT scans have shown progressive worsening metastatic disease involving chest, abdomen, pelvis with worsening pulmonary metastases and numerous intramuscular, soft tissue nodules along with metastases to pancreas. Also noted to have new small bilateral pleural effusions thought likely malignant and small pericardial effusion. She presented to [facility] ED 08/26/2020 with epistaxis in the setting of thrombocytopenia. In ED initially received Afrin spray, 1 L normal saline and underwent nasal packing. Soon thereafter became increasingly dyspneic, hypoxic. No reports of chest pain. Repeat ECG showed chronic left bundle branch block with questionable increased anterior discordant ST elevation not meeting Scarbossa criteria. Chest x-ray showed increased congestion. Cardiology consulted urgently in the emergency department due to concern for possible acute CA. Nitropaste placed, given IV metoprolol, IV diuretic and nebulizer treatment with improved shortness of breath. Bedside echo by me showed preserved LV function with conduction abnormality but no anterior wall motion abnormality. Formal echo the next day showed EF of 60% with conduction abnormality, moderate eccentric mitral regurgitation, mild AI, grade 2 diastolic dysfunction, mild pulmonary hypertension (PASP 40-45) and small to moderate circumferential pericardial effusion without signs of tamponade. Symptoms improved after initial diuresis and was discharged home on hospital day 2 on new standing p.o. Lasix 20 mg daily and potassium supplementation. Repeat echo as an outpatient showed improved pericardial effusion. Lasix changed to PRN. On admission Hb down to 4.8, wbc 1.1, platelets 9. Received multiple units of FFP, PRBCs, and platelets. This morning developed respiratory distress requiring high-flow 02, increased pulmonary edema on chest xray. Received 40 IV lasix and has put out 1400 ml. Breathing improved. Still on high flow but sats 100%. Allergies Allergy/AdvReac Type Severity Reaction Status Date / Time selina Allergy Intermediate HIVES Verified 09/25/20 18:40 Sulfa (Sulfonamide Allergy Intermediate HIVES Verified 09/25/20 18:40 Antibiotics) Home Medications Medication Instructions Recorded Confirmed Type calcium carbonate 600 mg calcium 600 mg PO .BID/3XW tab 06/27/18 09/25/20 History (1,500 mg) tablet multivitamin 1 tab PO DAILY 06/27/18 09/25/20 History omega-3 fatty acids 1,000 mg 1,000 mg PO DAILY 06/27/18 09/25/20 History capsule cyclosporine 0.05 % eye drops in a 1 drops OP Q12H 06/30/18 09/25/20 History dropperette denosumab 60 mg/mL subcutaneous 60 mg SQ Q6MO ml 06/14/19 09/25/20 History syringe sertraline 50 mg tablet 50 mg PO DAILY #90 tab 01/11/20 09/25/20 Rx metoprolol succinate 50 mg 50 mg PO DAILY #90 tab 05/27/20 09/25/20 Rx tablet,extended release 24 hr simvastatin 10 mg tablet 20 mg PO QPM #180 tab 05/27/20 09/25/20 Rx cholecalciferol (vitamin D3) 50 50 mcg PO DAILY 06/14/20 09/25/20 History mcg (2,000 unit) capsule loratadine [Claritin] 10 mg PO BID 07/17/20 09/25/20 History ondansetron 8 mg PO Q12H PRN 07/17/20 09/25/20 History polyethylene glycol 3350 [Miralax] 17 g PO DAILY PRN 07/17/20 09/25/20 History mometasone 50 mcg/actuation nasal 1 spray INTRANASAL DAILY PRN #17 g 07/31/20 09/25/20 Rx spray miscellaneous throat product 10 ml BUCCAL TID PRN 08/26/20 09/25/20 History furosemide [Lasix] 20 mg PO DAILY #30 tab 08/27/20 09/25/20 Rx potassium chloride 10 meq PO DAILY #30 tab 08/27/20 09/25/20 Rx fentanyl 12 mcg/hr transdermal 1 patch TRANSDERMAL Q72H 09/12/20 09/25/20 History patch gabapentin 400 mg PO TID 09/25/20 09/25/20 History Patient History Medical History Cancer Herpes zoster Hypercholesteremia Left-sided chest wall pain Lumbar spinal stenosis Lung nodule Peripheral neuropathy due to chemotherapy Syncope Surgical History H/O colonoscopy H/O dilation and curettage H/O hysterectomy with oophorectomy H/O oophorectomy H/O oral surgery H/O: hysterectomy History of back surgery History of cataract surgery History of shoulder surgery History of sinus surgery Hx of appendectomy Hx of tonsillectomy Status post cryoablation Buttocks Family History Mother Lymphoma Father Alzheimer disease Unknown Uterine cancer Grandfather (Maternal) Myocardial infarction Denies family history of Ovarian cancer Prostate cancer Breast cancer Colorectal cancer Social History Smoking Status: Never smoker Second Hand Exposure: No; Do You Dip or Chew Tobacco: No; Hx Alcohol Use: No Hx Substance Use: No Preferred Language: Guyanese Communication Ability: Effective Hearing Ability: Use of Hearing Aid Braille Coder Required: No Beliefs That Will Affect Care: None marital status: Current Living Situation: Spouse current occupational status: retired How many Children do You have: 2 Other Information That Helps Us Care for You: No Feels Safe at Home: Yes Safety Concerns: Feels Safe At This Time Dental Care, Regularly: Yes Physical Activity Frequency: 1-2 Times per Week Physical Activity Frequency Comment: swimming and walking Seatbelt Use: always Sunscreen Use: Yes (sometimes) Assistive Devices: Oxygen - Continuous Review of Systems Review of Systems: All systems reviewed & are unremarkable except as noted in HPI & below Physical Exam Physical Exam: General: Comfortable, frail Eyes: Sclerae anicteric HENT: Nigh flow NC in place Lungs: Clear, few crackles at bases Cardiac: Regular rate and rhythm, 2/6 holosystolic murmur Abdomen: Soft, nondistended Neuro: Nonfocal Psych: Alert orient x3, normal affect and mood Extremities/Vascular: -- 2+ radial bilaterally -- Compression stockings in place Results & Data ([facility]) Vital Signs (Past 12 Hours) Vital Signs Temp Pulse Pulse Resp BP Pulse Ox 09/27/20 10:15 97 H 20 120/79 100 09/27/20 09:45 103 H 21 140/86 100 09/27/20 09:15 115 H 20 139/90 100 09/27/20 08:46 114 H 22 124/95 92 09/27/20 08:16 112 H 27 H 157/95 H 99 09/27/20 07:50 117 H 30 H 95 09/27/20 07:45 129 H 30 H 181/99 H 92 09/27/20 07:15 141 H 40 H 176/126 H 96 09/27/20 05:45 94 H 20 134/88 100 09/27/20 05:15 92 H 19 147/81 H 100 09/27/20 04:45 79 17 129/77 99 09/27/20 04:15 88 19 136/73 99 09/27/20 03:45 100 H 18 133/83 98 09/27/20 03:43 98.8 F 09/27/20 03:15 102 H 20 128/75 98 09/27/20 02:45 111 H 23 151/72 H 97 09/27/20 02:15 123 H 25 H 143/107 H 93 09/27/20 01:45 100 H 24 135/95 96 09/27/20 01:35 97.7 F 104 H 21 129/95 98 09/27/20 01:31 143 H 183/129 H 09/27/20 00:45 97.9 F 115 H 22 157/95 H 100 09/27/20 00:15 98.6 F 113 H 20 153/68 H 100 09/26/20 23:54 112 H 20 141/87 H 100 09/26/20 23:39 98.1 F 126 H 24 149/83 H 100 09/26/20 23:21 99.1 F 113 H 19 135/92 100 PG Care Time/CCT Total # of Minutes Spent Total Time Spent with Patient: Total time spent is greater than 50% in coordination of care (as documented) at patient's floor/unit and/or counseling patient: Coding Level of Care Code 74898 Inpt Consult Level 4 Diagnoses Acute on chronic diastolic (congestive) heart failure I50.33
--- NOTE | 2020-09-27 12:19 | XCELERA ---
[id number]
--- NOTE | 2020-09-27 13:07 | Electrocardiogram Report ---
Test Reason : Blood Pressure : / mmHG Vent. Rate : 109 BPM Atrial Rate : 113 BPM P-R Int : 152 ms QRS Dur : 116 ms QT Int : 416 ms P-R-T Axes : 092 015 085 degrees QTc Int : 560 ms Sinus tachycardia with occasional Premature ventricular complexes and atrial ectopy Low voltage QRS Prolonged QT Abnormal ECG Confirmed by Gamaliel Alvarez ([id number]) on 09/27/2020 1:07:00 PM Referred By: REFERRED SELF Confirmed By:Chino Alvarez
[2020-09-27] MEDS: dilTIAZem HCL 30 MG TAB PO SCH ×3 (13:36→20:48)
[2020-09-27 14:02] LABS: Hematocrit (blood only) 24.6 % (37-47); Hemoglobin 8.4 g/dL (12.0-16.0); Mean Corpuscular Hemoglobin 30.5 pg (25-34); Mean Corpuscular Hgb Conc 34.1 g/dL (32-36); Mean Corpuscular Volume 89.5 fL (80-100); Nucleated RBC # (auto) 0.05 K/uL (0-0); Nucleated RBC % (auto) 1.2 %; RDW Coefficient of Variation 19.4 % (11.5-14.5); RDW Standard Deviation 62.3 fL (36.4-46.3); Red Blood Count 2.75 M/uL (4.2-5.4); White Blood Count 3.86 K/uL (4.8-10.8)
[2020-09-27 14:04] LABS: Platelet Count 31 K/uL (130-400)
--- NOTE | 2020-09-27 14:11 | Palliative Care Consultation ---
Date of Consultation September 27, 2020 Assessment & Plan (1) Palliative care encounter: This is a 74 year old Female who presented to the [facility] with gingival bleeding. 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 She has recently received chemotherapy, but recent imaging results indicate further progression of her leiomyosarcoma. This morning she experienced respiratory distress which is likely from fluid overload. She is followed by Dr. Schulte who met with her this morning. After their discussion, they decided that she would no longer pursue salvage chemotherapy. Palliative Care was consulted to discuss goals of care. I met with Rosio in room 101. She was resting when I entered and awakened to voice stimuli. She was able to tell me about her respiratory distress event this morning and recalled her conversation with Dr. Schulte today. 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 She has two sons on in [facility] and one in [place], who she knows does not know the extent of how severe her illness is. She talked about and her comfort of dying, knowing there is no cure for her illness. She talked about her 11 year old grandson whom she is so close with and knows he will have a hard time with her . She discussed her of 52 years , Martin who has been so supportive. She said they lived a lexii filled life and is comfortable and at peace with her fate. She and Martin spoke about returning home with Hospice Service. Belen Vogt from case management provided a hospice list to Martin who visited this morning. I spoke with Martin at [phone] and answered some questions regarding hospice. He is at peace with this transition. We discussed what she would like us to do if she would decline over the weekend. She would be comfortable doing the HiFlow nasal canula, but would not want to go on BiPAP. Should she require BiPAP, she would want to transition to Comfort M easures only. She did express some anxiety, and when we talked more about it, seems to be related to air hunger. She was receptive to having PRN Roxanol available, order was place. We discussed her code status and after discussion she was agreeable to transition to DNR/DNI. We completed a POLST form indicating DnR/DNI, FILENET ARCHITECT on discharge, trail abx and no artificial nutrition/hydration. Patient on 8L oxymask, I do have concerns about her oxygen needs exceeding capability of hospice at home. Typically, hospice can manage 10L oxymask. This was discussed to patient and her , Martin. For now, continue current treatment while hospitalized. Case management to follow up this weekend to obtain a hospice name for referral placement and hopeful discharge Wednesday. Palliative care will follow. (2) Leiomyosarcoma: (3) Pancytopenia: (4) Acute respiratory failure with hypoxemia: (5) Hypoxia: History of Present Illness Attending Physician: Patricio Jack MD History of Present Illness This is a 74 year old Female who presented to the [facility] with gingival bleeding. 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 She has recently received chemotherapy, but recent imaging results indicate further progression of her leiomyosarcoma. This morning she experienced respiratory distress which is likely from fluid overload. She is followed by Dr. Schulte who met with her this morning. After their discussion, they decided that she would no longer pursue salvage chemotherapy. Palliative Care was consulted to discuss goals of care. Please see A/P for further details. Thank you kindly for involving palliative care with this individual. Allergies Allergy/AdvReac Type Severity Reaction Status Date / Time selina Allergy Intermediate HIVES Verified 09/25/20 18:40 Sulfa (Sulfonamide Allergy Intermediate HIVES Verified 09/25/20 18:40 Antibiotics) Home Medications Medication Instructions Recorded Confirmed Type calcium carbonate 600 mg calcium 600 mg PO .BID/3XW tab 06/27/18 09/25/20 History (1,500 mg) tablet multivitamin 1 tab PO DAILY 06/27/18 09/25/20 History omega-3 fatty acids 1,000 mg 1,000 mg PO DAILY 06/27/18 09/25/20 History capsule cyclosporine 0.05 % eye drops in a 1 drops OP Q12H 06/30/18 09/25/20 History dropperette denosumab 60 mg/mL subcutaneous 60 mg SQ Q6MO ml 06/14/19 09/25/20 History syringe sertraline 50 mg tablet 50 mg PO DAILY #90 tab 01/11/20 09/25/20 Rx metoprolol succinate 50 mg 50 mg PO DAILY #90 tab 09/28/20 01/27/21 Rx tablet,extended release 24 hr simvastatin 10 mg tablet 20 mg PO QPM #180 tab 05/27/20 09/25/20 Rx cholecalciferol (vitamin D3) 50 50 mcg PO DAILY 06/14/20 09/25/20 History mcg (2,000 unit) capsule loratadine [Claritin] 10 mg PO BID 07/17/20 09/25/20 History ondansetron 8 mg PO Q12H PRN 07/17/20 09/25/20 History polyethylene glycol 3350 [Miralax] 17 g PO DAILY PRN 07/17/20 09/25/20 History mometasone 50 mcg/actuation nasal 1 spray INTRANASAL DAILY PRN #17 g 07/31/20 09/25/20 Rx spray miscellaneous throat product 10 ml BUCCAL TID PRN 08/26/20 09/25/20 History furosemide [Lasix] 20 mg PO DAILY #30 tab 08/27/20 09/25/20 Rx potassium chloride 10 meq PO DAILY #30 tab 08/27/20 09/25/20 Rx fentanyl 12 mcg/hr transdermal 1 patch TRANSDERMAL Q72H 09/12/20 09/25/20 History patch gabapentin 400 mg PO TID 09/25/20 09/25/20 History Patient History Medical History (Updated 09/27/20 @ 14:11 by CARROLL Adair) Cancer Herpes zoster Hypercholesteremia Left-sided chest wall pain Lumbar spinal stenosis Lung nodule Palliative care encounter Peripheral neuropathy due to chemotherapy Syncope Surgical History H/O colonoscopy H/O dilation and curettage H/O hysterectomy with oophorectomy H/O oophorectomy H/O oral surgery H/O: hysterectomy History of back surgery History of cataract surgery History of shoulder surgery History of sinus surgery Hx of appendectomy Hx of tonsillectomy Status post cryoablation Buttocks Family History Mother Lymphoma Father Alzheimer disease Unknown Uterine cancer Grandfather (Maternal) Myocardial infarction Denies family history of Ovarian cancer Prostate cancer Breast cancer Colorectal cancer Social History Smoking Status: Never smoker Second Hand Exposure: No; Do You Dip or Chew Tobacco: No; Hx Alcohol Use: No Hx Substance Use: No Preferred Language: Kinyarwanda Communication Ability: Effective Hearing Ability: Use of Hearing Aid Kettle Hand Required: No Beliefs That Will Affect Care: None marital status: Current Living Situation: Spouse current occupational status: retired How many Children do You have: 2 Other Information That Helps Us Care for You: No Feels Safe at Home: Yes Safety Concerns: Feels Safe At This Time Dental Care, Regularly: Yes Physical Activity Frequency: 1-2 Times per Week Physical Activity Frequency Comment: swimming and walking Seatbelt Use: always Sunscreen Use: Yes (sometimes) Assistive Devices: Oxygen - Continuous Review of Systems Review of Systems: All systems reviewed & are unremarkable except as noted in HPI & below Dawson Symptom Assessment System - Revised Pain: 0/3 Tiredness: 2/3 Drowsiness: 0/3 Nausea: 0/3 Shortness of breath: 3/3 Anxiety: 1/3 Palliative Performance Scale: 30% Physical Exam Constitutional: + cachectic, + frail appearing, cooperative and + in distress Respiratory: normal respiratory effort and able to speak in complete sentences Auscultation: + rhonchi Cardiovascular: Rate/Rhythm: regular rate and regular rhythm Heart Sounds: normal S1 and normal S2 Extremities: normal capillary refill; no edema Gastrointestinal (Abdomen): normal bowel sounds, soft, nontender, no hepatosplenomegaly Skin: no rashes, warm and dry + pallor Psychiatric: A+Ox3, euthymic affect Insight: good insight Judgement: good judgement Results & Data ([place]) Vital Signs (Past 12 Hours) Vital Signs Temp Pulse Pulse Resp BP Pulse Ox 09/27/20 11:11 78 22 100 09/27/20 10:15 97 H 20 120/79 100 09/27/20 09:45 103 H 21 140/86 100 09/27/20 09:15 115 H 20 139/90 100 09/27/20 08:46 114 H 22 124/95 92 09/27/20 08:16 112 H 27 H 157/95 H 99 09/27/20 07:50 117 H 30 H 95 09/27/20 07:45 129 H 30 H 181/99 H 92 09/27/20 07:15 141 H 40 H 176/126 H 96 09/27/20 05:45 94 H 20 134/88 100 09/27/20 05:15 92 H 19 147/81 H 100 09/27/20 04:45 79 17 129/77 99 09/27/20 04:15 88 19 136/73 99 09/27/20 03:45 100 H 18 133/83 98 09/27/20 03:43 37.1 C 09/27/20 03:15 102 H 20 128/75 98 09/27/20 02:45 111 H 23 151/72 H 97 09/27/20 02:15 123 H 25 H 143/107 H 93 PG Care Time/CCT Total # of Minutes Spent Total Time Spent with Patient: Total time spent is greater than 50% in coordination of care (as documented) at patient's floor/unit and/or counseling patient: 100 Coding Level of Care Code 50847 Inpt Consult Level 4 Diagnoses Palliative care encounter Z51.5 Leiomyosarcoma C49.9 Pancytopenia D61.818 Acute respiratory failure with hypoxemia J96.01 Hypoxia R09.02 Time Spent (min) 100 Time Spent Midlevel Total time spent 100 minutes with > 50% of that time spent assessing the patient, discussing goals of care, completing a POLST form, providing symptom management, and collaborating with IDT
[2020-09-27 14:25] LABS: BUN Creatinine Ratio 33.8 (10-20); Calcium 8.4 mg/dl (8.5-10.1); Creatinine Clr Calc Pharmacy 87.8 ml/min; Est GFR (African American) 105.6; Est GFR (Non-African American) 91.1; Magnesium 1.7 mg/dl (1.8-2.4); Potassium 3.6 mmol/L (3.5-5.1)
--- NOTE | 2020-09-27 16:55 | Progress Notes ---
DATE: 09/27/2020 ADDENDUM Addendum to the progress note by Carrie Ventura on the patient. The patient has received multiple blood products over the last 24 hours due to pancytopenia and bleeding from her nose and gums. Unfortunately, she developed worsening shortness of breath and heart failure due to underlying heart disease. She was seen by Dr. Ramirez and started on Lasix, which she has been on before when this happened when she got excess fluid. She has also been seen by palliative care. At this point, it does not appear that she is having any further active bleeding and she is certainly not a candidate for any form of sedation or endoscopy. We will sign off at this time unless any further GI issues become active.
[2020-09-27] MEDS: MoRPHine SULFATE 5 MG/0.25 ML UDP PO PRN (17:31)
--- NOTE | 2020-09-27 18:25 | Hospitalist Progress Note ---
Date of Service September 27, 2020 Assessment & Plan (1) Acute blood loss anemia: this pt has acute blood loss anemia secondary to chemotherapy for metastatic leiomyosarcoma. pt was supported with blood products, and after discussion with Dr Schulte will likely continue to require blood product support as her chemo regime has tendency to have significant bone marrow suppression 3 units of platelets, 2 units of FFP and 1 unit of blood, blood counts are stable at this time platelets are lower than 50 but acceptable (2) Pancytopenia: Likely related to recent chemo (3) CHF (congestive heart failure): pt has a history of chronic diastolic heart failure (4) Leiomyosarcoma: CT chest abdomen and pelvis 09/22/20 Impression. Progressively worsened metastatic disease throughout the chest includes an enhancing pathologic 3.9 x 3.3 cm right axillary/subpectoral lymph node which previously measured 1.4 x 2.0 cm. Metastatic disease of the left pectoralis muscle is redemonstrated with associated muscle enlargement and adjacent subcutaneous stranding. There are progressively worsened numerous soft tissue nodules of the chest which include a 4.9 x 4.1 cm intramuscular mass anterolateral to the right scapula which previously measured 3.8 cm in greatest dimension. Enhancing mass interposed between the right 10th and 11th ribs, measuring 3.0 cm previously measured 1.8 cm. Progressively worsened metastatic disease of the chest, abdomen and pelvis as above includes progressive pulmonary metastasis with numerous intramuscular and soft tissue nodules with increased size of numerous metastatic implants. Enlarging heterogeneous soft tissue mass, measuring 5.8 x 5.2 cm is again noted abutting the posterior aspect of the pancreatic body, previously measured at 3.4 x 2.8 cm. Additionally, there is a new soft tissue mass involving the pancreatic neck/proximal body with mild associated pancreatic ductal dilation. A large metastatic focus inferior to the gurpreet hepatis, 5.1 cm, previously 2.5 cm. Progressive numerous soft tissue and intramuscular metastasis of the pelvis includes a 6.7 cm left inguinal lesion, previously 5.7 cm. A large lesion with internal fat attenuation involves the right gluteal musculature, 10.9 cm. No acute fracture. No new suspicious bone lesion. Vertebra plana at L5 is unchanged. Sclerotic changes of the sacrum are likely secondary to post radiation. New small pleural effusions, likely malignant. Cardiomegaly with small pericardial effusion. Nonobstructing bilateral nephrolithiasis. No bowel obstruction. moderate fecal retention (5) Hypertension: typically on metoprolol and lasix (6) Hypercholesterolemia: zoloft (7) Peripheral neuropathy due to chemotherapy: Gabapentin (8) DVT prophylaxis: SCDs given above, chemoprophylaxis contraindicated due to bleeding outlook is guarded Admission and Anticipated Discharge Date Admission Date: September 25, 2020 Subjective This morning Rosio White was struggling to breath and had increased work of breathing, she was not having any chest pain at the time. She did have melena overnight. She was given Lasix and BiPAP was ordered but she did not tolerate this she however did improve greatly with the lasix In the setting of respiratory distress her code status was clarified and she would not like to be intubated. Dr. Schulte was also in the room this morning and he clarified with her that she would not like to continue chemotherapy at this time. Her was able to come and visit with her in the ICU. Palliative care was brought on board to help elicit the patient's goal of care moving forward. Review of Systems Review of Systems: Moderate distress and fatigue no headache, blurry or double vision no speech or swallowing issues Chest pain associate with anemia and rapid heart rate Anemia associated shortness of breath, cough with production of blood no abdominal pain, nausea or vomiting no dysuria, hematuria or frequency no focal joint pain or swelling no back pain, CVA tenderness or radicular pain no bruising, bleeding or rashes no focal signs of weakness or numbness or altered sensation Physical Exam Physical Exam: The patient appeared pale, weak and chronically ill Vital signs as documented. afib rvr at times Head exam is normocephalic atraumatic no scleral icterus Neck is without JVD, thyromegaly, or carotid bruits. Lungs are diminished at bases Cardiac exam, irregular and tachycardic. Abdominal exam reveals normal bowel sounds, soft non tender, no masses Extremities are nonedematous and both pedal pulses are present Neurologic exam is alert and oriented, no focal loss of strength or sensation Skin is without bruises or rashes Psychologically is with concerns for depression. Results & Data Results & Data ([facility]) Vital Signs (Past 12 Hours) Vital Signs Pulse Pulse Resp BP Pulse Ox 09/27/20 17:51 102 H 26 H 108/79 96 09/27/20 16:51 95 H 21 128/90 90 09/27/20 15:51 83 17 121/71 100 09/27/20 14:51 105 H 20 137/85 100 09/27/20 13:52 108 H 21 117/65 100 09/27/20 12:51 99 H 22 103/72 100 09/27/20 11:51 92 H 22 122/66 99 09/27/20 11:11 78 22 100 09/27/20 10:45 90 20 124/69 100 09/27/20 10:15 97 H 20 120/79 100 09/27/20 09:45 103 H 21 140/86 100 09/27/20 09:15 115 H 20 139/90 100 09/27/20 08:46 114 H 22 124/95 92 09/27/20 08:16 112 H 27 H 157/95 H 99 09/27/20 07:50 117 H 30 H 95 09/27/20 07:45 129 H 30 H 181/99 H 92 09/27/20 07:15 141 H 40 H 176/126 H 96 PG Care Time/CCT Total # of Minutes Spent Total Time Spent with Patient: Total time spent is greater than 50% in coordina tion of care (as documented) at patient's floor/unit and/or counseling patient: Coding Level of Care Code 59293 Subseq Hosp Care Lvl 3 Diagnoses Acute blood loss anemia D62 Pancytopenia D61.818 CHF (congestive heart failure) I50.9 Heart failure chronicity: acute Heart failure type: unspecified Leiomyosarcoma C49.9 Hypertension I10 Hypercholesterolemia E78.00 Peripheral neuropathy due to chemotherapy G62.0; T45.1X5A DVT prophylaxis Z29.9 (1) CHF (congestive heart failure) Heart failure chronicity: acute Heart failure type: unspecified Qualified Code(s): I50.9 - Heart failure, unspecified
[2020-09-27] MEDS ORDERED: MAGNESIUM SULFATE / D5W 1 GM/100 ML BAG IV ONE (18:45)
[2020-09-27] MEDS: PANTOprazole 40 MG in SYRINGE 0 ML IV SCH (21:21)
[2020-09-28] MEDS: ONDANSETRON INJ 2 MG/ML 2 ML VIAL IV SCH ×4 (02:00→19:53)
[2020-09-28 05:56] LABS: Hematocrit (blood only) 23.9 % (37-47); Mean Corpuscular Hemoglobin 30.3 pg (25-34); Mean Corpuscular Hgb Conc 33.5 g/dL (32-36); Mean Corpuscular Volume 90.5 fL (80-100); Mean Platelet Volume 10.1 fL (7.4-10.4); Nucleated RBC # (auto) 0.02 K/uL (0-0); Nucleated RBC % (auto) 0.6 %; Platelet Count 24 K/uL (130-400); RDW Coefficient of Variation 19.1 % (11.5-14.5); RDW Standard Deviation 62.9 fL (36.4-46.3); Red Blood Count 2.64 M/uL (4.2-5.4); White Blood Count 3.87 K/uL (4.8-10.8)
[2020-09-28 05:58] LABS: BUN Creatinine Ratio 38.2 (10-20); Calcium 7.7 mg/dl (8.5-10.1); Est GFR (Non-African American) 96.6; Potassium 3.4 mmol/L (3.5-5.1)
[2020-09-28] MEDS ORDERED: SODIUM CHLORIDE 0.9% 1000ML 1,000 ML IV SCH (06:15)
[2020-09-28] MEDS: POTASSIUM CHLORIDE / WTR 10 MEQ/100 ML PLCT IV SCH ×2 (06:33→07:37)
[2020-09-28] MEDS: dilTIAZem HCL 30 MG TAB PO SCH (07:41)
[2020-09-28] MEDS: PANTOprazole 40 MG in SYRINGE 0 ML IV SCH ×2 (07:41→19:54)
[2020-09-28] MEDS: GABAPENTIN 400 MG CAP PO SCH ×3 (07:41→20:19)
[2020-09-28] MEDS: POTASSIUM CHLORIDE 10 MEQ TABCR PO SCH (07:41)
[2020-09-28] MEDS: METOPROLOL SUCC 50MG EXT REL TAB PO SCH (07:41)
[2020-09-28] MEDS: LORATADINE 10 MG TAB PO SCH ×2 (07:41→20:19)
[2020-09-28] MEDS: dilTIAZem HCL 180 MG CAPCR PO SCH (11:52)
--- NOTE | 2020-09-28 13:26 | Hospitalist Progress Note ---
Date of Service September 28, 2020 Assessment & Plan (1) Acute blood loss anemia: this pt has acute blood loss anemia secondary to chemotherapy for metastatic leiomyosarcoma. pt was supported with blood products, and after discussion with Dr Schulte will likely continue to require blood product support as her chemo regime has tendency to have significant bone marrow suppression 4 units of platelets, 2 units of FFP and 1 unit of blood, blood counts are stable at this time with hemoglobin drifting down likely may receive an additional unit of blood perhaps on 09/29 (2) Pancytopenia: Secondary to recent chemo (3) CHF (congestive heart failure): pt has a history of chronic diastolic heart failure she has required intermittent doses of Lasix. Given her rapid heart rate likely this may exacerbate her diastolic heart failure we will continue to try to control her rate and use diuretics. Echocardiogram from 09/27/2020 shows preserved ejection fraction and no evidence of pericardial effusion (4) Leiomyosarcoma: CT chest abdomen and pelvis 09/22/20 Impression. Progressively worsened metastatic disease throughout the chest includes an enhancing pathologic 3.9 x 3.3 cm right axillary/subpectoral lymph node which previously measured 1.4 x 2.0 cm. Metastatic disease of the left pectoralis muscle is redemonstrated with associated muscle enlargement and adjacent subcutaneous stranding. There are progressively worsened numerous soft tissue nodules of the chest which include a 4.9 x 4.1 cm intramuscular mass anterolateral to the right scapula which previously measured 3.8 cm in greatest dimension. Enhancing mass interposed between the right 10th and 11th ribs, measuring 3.0 cm previously measured 1.8 cm. Progressively worsened metastatic disease of the chest, abdomen and pelvis as above includes progressive pulmonary metastasis with numerous intramuscular and soft tissue nodules with increased size of numerous metastatic implants. Enlarging heterogeneous soft tissue mass, measuring 5.8 x 5.2 cm is again noted abutting the posterior aspect of the pancreatic body, previously measured at 3.4 x 2.8 cm. Additionally, there is a new soft tissue mass involving the pancreatic neck/proximal body with mild associated pancreatic ductal dilation. A large metastatic focus inferior to the gurpreet hepatis, 5.1 cm, previously 2.5 cm. Progressive numerous soft tissue and intramuscular metastasis of the pelvis includes a 6.7 cm left inguinal lesion, previously 5.7 cm. A large lesion with internal fat attenuation involves the right gluteal musculature, 10.9 cm. No acute fracture. No new suspicious bone lesion. Vertebra plana at L5 is unchanged. Sclerotic changes of the sacrum are likely secondary to post radiation. New small pleural effusions, likely malignant. Cardiomegaly with small pericardial effusion. Nonobstructing bilateral nephrolithiasis. No bowel obstruction. moderate fecal retention (5) Hypertension: typically on metoprolol and lasix he did add Cardizem extended release for atrial fibrillation rate control unfortunately after cardiology consultation she continued to have intermittent atrial fibrillation and calcium channel kenny was continued we may try to control her rate with increasing metoprolol doses on 09/29 if are able to we can then discontinue the Cardizem (6) Hypercholesterolemia: zoloft (7) Peripheral neuropathy due to chemotherapy: Gabapentin (8) DVT prophylaxis: SCDs given above, chemoprophylaxis contraindicated due to bleeding outlook is improving with hopeful home on hospice in the upcoming days Admission and Anticipated Discharge Date Admission Date: September 25, 2020 Subjective Patient has done remarkably well overnight. She has had no additional melena. Her hemoglobin is stayed in the 8 g range however her platelets have dipped again to 24. Her renal function has been stable. She is mildly hypokalemic. Patient did have a good discussion with palliative care and is anticipating going home in the next few days. Additional platelet transfusions are scheduled for today. Were having some challenges controlling her cardiac rate intermittently having periods of atrial fibrillation. Palliative care was brought on board to help elicit the patient's goal of care moving forward. Review of Systems Review of Systems: Improving with less distress and fatigue no headache, blurry or double vision no speech or swallowing issues Chest pain has resolved with improvement of anemia Anemia continues to be associated shortness of breath, cough with production of blood no abdominal pain, nausea or vomiting no dysuria, hematuria or frequency no focal joint pain or swelling no back pain, CVA tenderness or radicular pain no bruising, bleeding or rashes no focal signs of weakness or numbness or altered sensation Physical Exam Physical Exam: The patient appeared to have better color and be more awake and conversant Vital signs as documented. afib rvr at times Head exam is normocephalic atraumatic no scleral icterus Neck is without JVD, thyromegaly, or carotid bruits. Lungs are diminished at bases is good air movement otherwise Cardiac exam, tachycardic. Abdominal exam reveals normal bowel sounds, soft non tender, no masses Extremities are nonedematous and both pedal pulses are present Neurologic exam is alert and oriented, no focal loss of strength or sensation Skin is without bruises or rashes Psychologically is with concerns for depression. Results & Data Results & Data ([facility]) Vital Signs (Past 12 Hours) Vital Signs Temp Pulse Pulse Resp BP BP Pulse Ox 09/28/20 11:11 97.7 F 119 H 18 154/81 H 91 09/28/20 10:49 98.2 F 120 H 22 150/88 H 93 09/28/20 08:00 126 H 22 92 09/28/20 07:51 125 H 20 134/94 92 09/28/20 07:30 104 H 29 H 92 09/28/20 07:00 92 H 20 95 09/28/20 06:51 100 H 23 122/78 97 09/28/20 06:45 97 H 20 97 09/28/20 06:00 88 20 137/76 96 09/28/20 05:00 95 H 21 161/76 H 97 09/28/20 04:00 98.1 F 88 19 127/72 98 09/28/20 03:00 88 16 127/64 98 09/28/20 02:00 85 17 118/59 L 98 PG Care Time/CCT Total # of Minutes Spent Total Time Spent with Patient: Total time spent is greater than 50% in coordination of care (as documented) at patient's floor/unit and/or counseling patient: Coding Level of Care Code 79467 Subseq Hosp Care Lvl 3 Diagnoses Acute blood loss anemia D62 Pancytopenia D61.818 CHF (congestive heart failure) I50.9 Heart failure chronicity: acute Heart failure type: unspecified Leiomyosarcoma C49.9 Hypertension I10 Hypercholesterolemia E78.00 Peripheral neuropathy due to chemotherapy G62.0; T45.1X5A DVT prophylaxis Z29.9 (1) CHF (congestive heart failure) Heart failure chronicity: acute Heart failure type: unspecified Qualified Code(s): I50.9 - Heart failure, unspecified
[2020-09-28] MEDS ORDERED: FUROSEMIDE 20 MG in SYRINGE 0 ML IV SCH (13:30)
[2020-09-28] MEDS: MoRPHine SULFATE 5 MG/0.25 ML UDP PO PRN (20:19)
[2020-09-29] MEDS: ONDANSETRON INJ 2 MG/ML 2 ML VIAL IV SCH ×4 (01:18→21:04)
[2020-09-29 06:27] LABS: Nucleated RBC # (auto) 0.04 K/uL (0-0); Nucleated RBC % (auto) 0.9 %
[2020-09-29 06:29] LABS: Hematocrit (blood only) 25.9 % (37-47); Hemoglobin 8.6 g/dL (12.0-16.0); Mean Corpuscular Hemoglobin 30.7 pg (25-34); Mean Corpuscular Hgb Conc 33.2 g/dL (32-36); Mean Corpuscular Volume 92.5 fL (80-100); Mean Platelet Volume 9.5 fL (7.4-10.4); Platelet Count 46 K/uL (130-400); RDW Coefficient of Variation 18.3 % (11.5-14.5); RDW Standard Deviation 61.5 fL (36.4-46.3); White Blood Count 5.04 K/uL (4.8-10.8)
[2020-09-29 07:10] LABS: BUN Creatinine Ratio 32.4 (10-20); Calcium 7.9 mg/dl (8.5-10.1); Creatinine Clr Calc Pharmacy 123.8 ml/min; Est GFR (African American) 118.2; Potassium 3.1 mmol/L (3.5-5.1)
[2020-09-29] MEDS: FUROSEMIDE 20 MG TAB PO SCH (09:00)
[2020-09-29] MEDS: dilTIAZem HCL 180 MG CAPCR PO SCH (09:00)
[2020-09-29] MEDS: LORATADINE 10 MG TAB PO SCH ×2 (09:00→21:34)
[2020-09-29] MEDS: PANTOprazole 40 MG TAB PO SCH (09:00)
[2020-09-29] MEDS: GABAPENTIN 400 MG CAP PO SCH ×3 (09:00→21:34)
[2020-09-29] MEDS: SERTRALINE HCL 50 MG TABLET PO SCH (09:00)
[2020-09-29] MEDS: POTASSIUM CHLORIDE CRTAB 20 MEQ TABCR PO SCH ×2 (09:00→22:11)
[2020-09-29] MEDS: METOPROLOL SUCC 50MG EXT REL TAB PO SCH (09:48)
[2020-09-29] MEDS: METHYLCELLULOSE POWDER 454 GM JAR PO SCH (12:53)
--- NOTE | 2020-09-29 14:17 | Hospitalist Progress Note ---
Date of Service September 29, 2020 Assessment & Plan (1) Acute blood loss anemia: this pt has acute blood loss anemia secondary to chemotherapy for metastatic leiomyosarcoma. pt was supported with blood products, and after discussion with Dr Schulte recommends to joselyniue to support as required 4 units of platelets, 2 units of FFP and 3 units of blood, blood counts are stable at this time (2) Pancytopenia: Secondary to recent chemo, wbc has improved pt with bone marrow stimulaiton injection post chemo last week (3) CHF (congestive heart failure): pt has a history of chronic diastolic heart failure she has required intermittent doses of Lasix. also exacerbated by rapid rate afib, now on cardizem cd 180 plus metoprolol Echocardiogram from 09/27/2020 shows preserved ejection fraction and no evidence of pericardial effusion (4) Atrial fibrillation: cstdizem cd 180, metoprolol xl 50, since is going on hospice, may just leave on these two with low doses, no Anticoagulation due to bleeding (5) Hypertension: typically on metoprolol and lasix did add Cardizem extended release for atrial fibrillation rate control unfortunately after cardiology consultation( they suggested stopping cardizem) she continued to have intermittent atrial fibrillation and calcium channel kenny was continued with better rate control (6) Leiomyosarcoma: CT chest abdomen and pelvis 09/22/20 Impression. Progressively worsened metastatic disease throughout the chest includes an enhancing pathologic 3.9 x 3.3 cm right axillary/subpectoral lymph node which previously measured 1.4 x 2.0 cm. Metastatic disease of the left pectoralis muscle is redemonstrated with associated muscle enlargement and adjacent subcutaneous stranding. There are progressively worsened numerous soft tissue nodules of the chest which include a 4.9 x 4.1 cm intramuscular mass anterolateral to the right scapula which previously measured 3.8 cm in greatest dimension. Enhancing mass interposed between the right 10th and 11th ribs, measuring 3.0 cm previously measured 1.8 cm. Progressively worsened metastatic disease of the chest, abdomen and pelvis as above includes progressive pulmonary metastasis with numerous intramuscular and soft tissue nodules with increased size of numerous metastatic implants. Enlarging heterogeneous soft tissue mass, measuring 5.8 x 5.2 cm is again noted abutting the posterior aspect of the pancreatic body, previously measured at 3.4 x 2.8 cm. Additionally, there is a new soft tissue mass involving the pancreatic neck/proximal body with mild associated pancreatic ductal dilation. A large metastatic focus inferior to the gurpreet hepatis, 5.1 cm, previously 2.5 cm. Progressive numerous soft tissue and intramuscular metastasis of the pelvis includes a 6.7 cm left inguinal lesion, previously 5.7 cm. A large lesion with internal fat attenuation involves the right gluteal musculature, 10.9 cm. No acute fracture. No new suspicious bone lesion. Vertebra plana at L5 is unchanged. Sclerotic changes of the sacrum are likely secondary to post radiation. New small pleural effusions, likely malignant. Cardiomegaly with small pericardial effusion. Nonobstructing bilateral nephrolithiasis. No bowel obstruction. 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 Her hemoglobin is stayed in the 8 g range and platelets augmented from platelet transfusion 09/29. She remains b hypokalemic. Patient did have a good discussion with palliative care and is anticipating going home in the next few days. Pt wants to have 2 days of stable blood counts before going home Palliative care was brought on board to help elicit the patient's goal of care moving forward. Review of Systems Review of Systems: minor distress and fatigue no headache, blurry or double vision no speech or swallowing issues Chest pain has resolved with improvement of anemia non productive cough, no abdominal pain, nausea or vomiting no dysuria, hematuria or frequency no focal joint pain or swelling no back pain, CVA tenderness or radicular pain no bruising, bleeding or rashes no focal signs of weakness or numbness or altered sensation Physical Exam Physical Exam: The patient continues to have better color and be more awake and conversant Vital signs as documented. afib rvr at times Head exam is normocephalic atraumatic no scleral icterus Neck is without JVD, thyromegaly, or carotid bruits. Lungs are diminished at bases is good air movement otherwise Cardiac exam, tachycardic. Abdominal exam reveals normal bowel sounds, soft non tender, no masses Extremities are nonedematous and both pedal pulses are present Neurologic exam is alert and oriented, no focal loss of strength or sensation Skin is without bruises or rashes Psychologically is with concerns for depression. Results & Data Results & Data ([facility]) Vital Signs (Past 12 Hours) Vital Signs Temp Pulse Pulse Resp BP BP Pulse Ox 09/29/20 11:44 98.2 F 102 H 18 147/74 H 93 09/29/20 08:00 111 H 09/29/20 07:42 98.8 F 90 20 131/66 96 09/29/20 03:58 98.1 F 99 H 16 133/73 98 PG Care Time/CCT Total # of Minutes Spent Total Time Spent with Patient: Total time spent is greater than 50% in coordination of care (as documented) at patient's floor/unit and/or counseling patient: Coding Level of Care Code 90291 Subseq Hosp Care Lvl 3 Diagnoses Acute blood loss anemia D62 Pancytopenia D61.818 CHF (congestive heart failure) I50.9 Heart failure chronicity: acute Heart failure type: unspecified Atrial fibrillation I48.91 Hypertension I10 Leiomyosarcoma C49.9 Hypercholesterolemia E78.00 Peripheral neuropathy due to chemotherapy G62.0; T45.1X5A DVT prophylaxis Z29.9 (1) CHF (congestive heart failure) Heart failure chronicity: acute Heart failure type: unspecified Qualified Code(s): I50.9 - Heart failure, unspecified
[2020-09-29] MEDS: MoRPHine SULFATE 5 MG/0.25 ML UDP PO PRN (22:11)
[2020-09-30] MEDS: ONDANSETRON INJ 2 MG/ML 2 ML VIAL IV SCH ×3 (01:40→13:33)
[2020-09-30 06:18] LABS: Hematocrit (blood only) 27.2 % (37-47); Mean Corpuscular Hemoglobin 30.6 pg (25-34); Mean Corpuscular Hgb Conc 33.1 g/dL (32-36); Mean Corpuscular Volume 92.5 fL (80-100); Nucleated RBC # (auto) 0.06 K/uL (0-0); RDW Coefficient of Variation 17.8 % (11.5-14.5); RDW Standard Deviation 59.3 fL (36.4-46.3); Red Blood Count 2.94 M/uL (4.2-5.4); White Blood Count 5.88 K/uL (4.8-10.8)
[2020-09-30 06:20] LABS: Mean Platelet Volume 9.9 fL (7.4-10.4); Platelet Count 52 K/uL (130-400)
[2020-09-30 06:51] LABS: BUN Creatinine Ratio 24.5 (10-20); Calcium 8.4 mg/dl (8.5-10.1); Creatinine Clr Calc Pharmacy 123.8 ml/min; Est GFR (African American) 118.2; Potassium 3.9 mmol/L (3.5-5.1)
[2020-09-30] MEDS: LORATADINE 10 MG TAB PO SCH (07:57)
[2020-09-30] MEDS: GABAPENTIN 400 MG CAP PO SCH ×2 (07:57→13:33)
[2020-09-30] MEDS: METHYLCELLULOSE POWDER 454 GM JAR PO SCH (07:58)
[2020-09-30] MEDS: POTASSIUM CHLORIDE CRTAB 20 MEQ TABCR PO SCH (08:12)
[2020-09-30] MEDS: FUROSEMIDE 20 MG TAB PO SCH (08:12)
[2020-09-30] MEDS: dilTIAZem HCL 180 MG CAPCR PO SCH (08:12)
[2020-09-30] MEDS: METOPROLOL SUCC 50MG EXT REL TAB PO SCH (08:13)
[2020-09-30] MEDS: PANTOprazole 40 MG TAB PO SCH (08:13)
[2020-09-30] MEDS: SERTRALINE HCL 50 MG TABLET PO SCH (08:13)
[2020-09-30 11:24] VITALS: PULSE 97; TEMP 98.8; O2SAT 98
--- NOTE | 2020-09-30 12:47 | Palliative Care Progress Note ---
Date of Service September 30, 2020 Assessment & Plan (1) Palliative care encounter: Rosio marino had an uneventful weekend. She has been able to be weaned from her O2 and is currently on room air. She has utilized approximately one dose daily of the Roxanol which she reports helped significantly and also curbed her anxiety. We talked about her discharge and she is eager to return home today. We talked about hospice choice and she was under the impression her Martin had chosen an agency. Shelly from Case management did speak with him but a final referral choice was not placed. A POLST form has been completed and she is comfortable with returning home without hospice fully arranged. I do worry about symptom management at home if Hospice is not fully arranged. Family states that they would like to continue pursuing hospice. Should they change their mind or have hospice not arranged, would recommend outpatient palliative care which could be arranged for 10/03/20 at 1500. If family does chose an agency, this could be cancelled. She does have oxygen at home, and currently her needs are not excessive. Again, she expressed if she would decline while inpatient, would like to transition to full comfort measures. Palliative will follow this lexii individual through her discharge. Palliative care will follow. (2) Leiomyosarcoma: (3) Pancytopenia: (4) Acute respiratory failure with hypoxemia: (5) Hypoxia: Admission and Anticipated Discharge Date Admission Date: September 25, 2020 Subjective Patient resting in room 263. Wakens easily to voice. No acute pain concerns. Please see A/P for further details. Review of Systems Review of Systems: [place] Symptom Assessment System - Revised Pain: 0/3 Tiredness: 2/3 Drowsiness: 0/3 Nausea: 0/3 Shortness of breath: 3/3 Anxiety: 1/3 Palliative Performance Scale: 30% Physical Exam Constitutional: + cachectic, + frail appearing, cooperative and + in distress Respiratory: normal respiratory effort and able to speak in complete sentences Auscultation: + rhonchi Cardiovascular: Rate/Rhythm: regular rate and regular rhythm Heart Sounds: normal S1 and normal S2 Extremities: normal capillary refill; no edema Gastrointestinal (Abdomen): normal bowel sounds, soft, nontender, no hepatosplenomegaly Skin: no rashes, warm and dry + pallor Psychiatric: A+Ox3, euthymic affect Insight: good insight Judgement: good judgement Results & Data ([facility]) Vital Signs (Past 12 Hours) Vital Signs Temp Pulse Pulse Resp BP Pulse Ox 09/30/20 11:24 37.1 C 97 H 16 118/51 L 98 09/30/20 07:28 36.7 C 104 H 16 138/82 97 09/30/20 07:00 98 H 09/30/20 04:59 36.8 C 104 H 16 137/80 98 PG Care Time/CCT Total # of Minutes Spent Total Time Spent with Patient: Total time spent is greater than 50% in coordination of care (as documented) at patient's floor/unit and/or counseling patient: Coding Level of Care Code 75483 Subseq Hosp Care Lvl 3 Diagnoses Palliative care encounter Z51.5 Leiomyosarcoma C49.9 Pancytopenia D61.818 Acute respiratory failure with hypoxemia J96.01 Hypoxia R09.02 Time Spent (min) 35 Time Spent Midlevel Total time spent 35 minutes with > 50% of that time spent assessing the patient, discussing goals of care, providing symptom management and collaborating with IDT
--- NOTE | 2020-09-30 13:37 | Discharge Summary ---
Date of Service date of admission - September 25, 2020 date of discharge - September 30, 2020 Admission HPI Per Admitting Provider 74 y/o F c/o gum bleeding. Pt states she has had nose bleeds a few weeks ago, but had not had one over the last week. She had sudden onset of gum bleeding earlier today, so she came to the ED as it would not stop and was quite profuse. Pt states she has not been eating much due to no appetite and nausea. No quique emesis, but she states she retches often. She states she has been eating only soup the last week. Pt is currently receiving chemo for leiomyosarcoma. Her last tx was 09/17. Her next tx is 10/01. Pt denies fever, SOB, chest pain, abd pain, n/v/c/d, LE pain. She does have mild LE swelling at baseline. She takes lasix PRN, but has not had it since her prior admission in July. Principal Diagnosis 1. severe acute blood loss anemia 2. chemotherapy/antineoplastic induced pancytopenia 3. stage 4 uterine cancer (leiomyosarcoma) 4. acute hypoxic respiratory failure 2nd to acute/chronic diastolic CHF Discharge Exam Constitutional no acute distress and no altered mental status ENMT Mouth: + oral mucosal abnormality (Mucositis ) Respiratory no respiratory distress Auscultation: + diminished lung sounds (Bases ); no crackles and no wheezes Cardiovascular Rate/Rhythm: regular rate and + irregularly irregular Heart Sounds: normal S1 and normal S2 Vessels: posterior tibial pulses present and dorsalis pedis pulses present; no JVD Extremities: no edema Gastrointestinal (Abdomen) normal bowel sounds, soft, nontender, no hepatosplenomegaly Psychiatric Orientation: alert and oriented x 3 Discharge Data Allergies Allergy/AdvReac Type Severity Reaction Status Date / Time selina Allergy Intermediate HIVES Verified 09/25/20 18:40 Sulfa (Sulfonamide Allergy Intermediate HIVES Verified 09/25/20 18:40 Antibiotics) Consultations Consult Hematology Consult Gastroenterology Consult Wastewater Analyst Consult Palliative Care Consult Cardiology Procedures Performed Transfusion of: 4 units of platelets 3 units of pRBCs 2 units FFP Ordered Studies Echo: EF 50-55%; SEVERE mitral regurgitation; no pericardial effusion. Hospital Course (1) Acute blood loss anemia: Acute blood loss anemia was secondary to oral mucosa bleeding in the setting of chemotherapy-induced pancytopenia. Lowest Hb level was 4.8 shortly after admission. Discharge Hb level was 9. She received in total: 4 units of platelets, 2 units of FFP and 3 units of pRBCs. Her transfusions were complicated by fluid overload - see below. (2) Acute respiratory failure with hypoxia: The patient developed severe acute hypoxic respiratory failure in the setting of rapid a.fib and acute/chronic diastolic CHF. At its peak she required high-flow NC O2. This was weaned and by time of discharge her O2 sats were normal in room air. She required ICU level of care during the worst portion of her acute hypoxic respiratory failure. (3) Acute on chronic diastolic (congestive) heart failure: Acute decompensated CHF was 2nd to volume overload from numerous blood products along with rapid a.fib. Seen in consult by [facility] [place] for these cardiac issues. Required IV diuresis for the volume overload. She appeared compensated by time of hospital discharge. For a.fib she will take both a beta kenny and calcium channel kenny. For edema she will take daily lasix 20mg daily. (4) Atrial fibrillation: Rates are controlled with Cardizem cd 180mg and metoprolol xl 50mg. No anticoagulation. (5) Leiomyosarcoma: STAGE 4, progressive disease. CT chest abdomen and pelvis 09/22/20 report: Progressively worsened metastatic disease throughout the chest includes an enhancing pathologic 3.9 x 3.3 cm right axillary/subpectoral lymph node which previously measured 1.4 x 2.0 cm. Metastatic disease of the left pectoralis muscle is redemonstrated with associated muscle enlargement and adjacent subcuta neous stranding. There are progressively worsened numerous soft tissue nodules of the chest which include a 4.9 x 4.1 cm intramuscular mass anterolateral to the right scapula which previously measured 3.8 cm in greatest dimension. Enhancing mass interposed between the right 10th and 11th ribs, measuring 3.0 cm previously measured 1.8 cm. Progressively worsened metastatic disease of the chest, abdomen and pelvis as above includes progressive pulmonary metastasis with numerous intramuscular and soft tissue nodules with increased size of numerous metastatic implants. Enlarging heterogeneous soft tissue mass, measuring 5.8 x 5.2 cm is again noted abutting the posterior aspect of the pancreatic body, previously measured at 3.4 x 2.8 cm. Additionally, there is a new soft tissue mass involving the pancreatic neck/proximal body with mild associated pancreatic ductal dilation. A large metastatic focus inferior to the gurpreet hepatis, 5.1 cm, previously 2.5 cm. Progressive numerous soft tissue and intramuscular metastasis of the pelvis includes a 6.7 cm left inguinal lesion, previously 5.7 cm. A large lesion with internal fat attenuation involves the right gluteal musculature, 10.9 cm. No acute fracture. No new suspicious bone lesion. Vertebra plana at L5 is unchanged. Sclerotic changes of the sacrum are likely secondary to post radiation. New small pleural effusions, likely malignant. Cardiomegaly with small pericardial effusion. Nonobstructing bilateral nephrolithiasis. No bowel obstruction. moderate fecal retention. Patient is transitioning to hospice at home at discharge in light of severe, progressive stage 4 cancer as depicted in the CT report above. (6) Pancytopenia: Secondary to recent chemotherapy for leiomyosarcoma. Discharge Hb 9, WBC 5.8, platelets 52. See acute blood loss anemia for info regarding transfusional support. (7) Hypertension: Continue metoprolol, lasix, and cardizem which will be used for CHF, a.fib, and BP control. 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 (9) UTI (urinary tract infection): Just prior to d/c a urinalysis was dispatched at pt's request. U/a highly suggestive of UTI. Culture ultimately returned showing group G strep. Sent home on keflex 500mg BID x 7 days. (10) Hospice care: Patient was seen by the palliative care team while hospitalized. Patient is transitioning to hospice at time of discharge given her progressive, stage 4 leiomyosarcoma. Hospice will be at home with [facility]. She will remain on fentanyl patch 12mcg q3days, morphine (roxanol) prn, and at davian prn. Total Time Total Time Spent Total Time Spent (In Minutes): 40 Total Time Includes: Examination of the Patient, Discharge Planning, Medication Reconciliation and Communication With Other Providers Discharge Plan Discharge Items Patient Disposition: Hospice - Home Reason For Visit: ANEMIA Discharge Diagnosis: 1. anemia due to chemotherapy 2. congestive heart failure 3. atrial fibrillation 4. metastatic cancer - initiating hospice on discharge Activity: Resume your previous activity Activity Comment: as desired, as tolerated Non-emergency contact: Primary Care Provider Call non-emergency contact if: you have any medication questions, your symptoms worsen, your pain is not controlled and your pain is worsening Follow-up/Referrals: Janelle Lima MD [Primary Care Provider] - Rashmi Sadler MD [Physician] - 10/03/20 3:00 pm (Dr Sadler - palliative care doctor) Diet: Regular Diet Texture: Easy to Chew Addtl Attending Provider Instructions: Mrs White, You were treated for severe anemia, very low platelets, congestive heart failure, and uncontrolled atrial fibrillation. You received blood transfusion, platelet transfusion, and medications for your heart. Later during your stay you were seen by the palliative care team. After multiple discussions with your and the palliative care team you are wanting to return home with hospice for your cancer. Dr Rashmi Sadler, palliative care doctor, can see you this at 3pm as you transition home with hospice. Please see office phone number and address. Recommendations - 1. for your heart and a.fib -- * start diltiazem extended release - 180mg daily; begin tomorrow * continue furosemide diuretic/water pill 20mg daily; begin tomorrow * take potassium supplement daily starting tomorrow * continue your metoprolol 50mg daily as previous 2. for pain, discomfort, or difficulty breathing - * take liquid morphine 5mg every 3 hours as needed * continue your fentanyl patch and change the patch on your skin every 3 days 3. for severe anxiety or sleep you may take lorazepam 0.5mg every 8 hours as needed 4. may use oxygen as needed for difficulty breathing; continue using it regularly at bedtime each night or during naps 5. I have stopped several medications that will not provide much benefit to you while on hospice; please see list 6. continue your magic mouthwash liquid medication for your mouth sores as needed 7. for constipation you can use 1 or more of the following - these are all [id number] - * miralax 1 serving daily * senakot 2 tablets daily * dulcolax suppository daily as needed Once you are enrolled in a specific hospice program for hospice services PLEASE CONTACT THEM FIRST - AT ANY TIME OF DAY or NIGHT - if you have questions, concerns, problems, needs, uncontrolled pain or symptoms, etc. It was very nice to meet you and enjoy being at home with your family! -Dr Michelle Pending Studies at Discharge: No Stand-Alone Forms: My [facility] Medications and DC Order Prescriptions: New diltiazem HCl 180 mg Capsule,Extended Release 24hr 180 mg PO QAM Qty: 30 RF: 5 potassium chloride 20 mEq tablet extended release 20 meq PO DAILY Qty: 30 RF: 5 (DME) Oxygen Home Liters Per Minute See Rx Instructions .ROUTE .MEDSUPPLY Qty: 1 RF: 0 morphine 20 mg/5 mL (4 mg/mL) solution 5 mg PO Q3H PRN (Reason: pain or difficulty breathing) Qty: 100 RF: 0 lorazepam [Ativan] 0.5 mg tablet 0.5 mg PO Q8H PRN (Reason: anxiety or sleep) Qty: 20 RF: 0 cephalexin [Keflex] 500 mg capsule 500 mg PO BID 7 Days Qty: 14 RF: 0 Continued cyclosporine [Restasis] 0.05 % dropperette 1 drops OP Q12H RF: 0 sertraline 50 mg tablet 50 mg PO DAILY Qty: 90 RF: 3 metoprolol succinate [Toprol XL] 50 mg tablet extended release 24 hr 50 mg PO DAILY Qty: 90 RF: 3 mometasone 50 mcg/actuation spray,non-aerosol 1 spray intranasal DAILY PRN (Reason: Allergic Symptoms) Qty: 17 RF: 2 fentanyl 12 mcg/hr patch 72 hour 1 patch transdermal Q72H RF: 0 polyethylene glycol 3350 [Miralax] 17 gram Powder In Packet 17 g PO DAILY PRN (Reason: Constipation) RF: 0 ondansetron 8 mg Tablet,Disintegrating 8 mg PO Q12H PRN (Reason: Nausea) RF: 0 loratadine [Claritin] 10 mg Tablet 10 mg PO BID RF: 0 miscellaneous throat product 10 ml buccal TID PRN (Reason: Mouth Irritation) RF: 0 gabapentin 400 mg Capsule 400 mg PO TID RF: 0 furosemide [Lasix] 20 mg tablet 20 mg PO DAILY Qty: 30 RF: 5 Discontinued multivitamin [Multiple Vitamins] tablet 1 tab PO DAILY RF: 0 omega-3 fatty acids 1,000 mg capsule 1,000 mg PO DAILY RF: 0 calcium carbonate 600 mg calcium (1,500 mg) tablet 600 mg PO .BID/3XW RF: 0 Prolia 60 mg/mL syringe 60 mg SQ Q6MO RF: 0 simvastatin [Zocor] 10 mg tablet 20 mg PO QPM Qty: 180 RF: 3 cholecalciferol (vitamin D3) 50 mcg (2,000 unit) capsule 50 mcg PO DAILY RF: 0 potassium chloride 10 mEq tablet extended release 10 meq PO DAILY Qty: 30 RF: 0 Discharge Orders: Discharge Order (Routine); Ordered 09/30/20 Ordered By: Arnulfo Michelle Admission Data Admit Date/Time: 09/25/20 19:22 Attending Provider: Arnulfo Michelle Admit Provider: Nessa Wilkins Primary Care Provider: Janelle Lima V. Other Providers: [facility],Home Healthcare ; Nessa Wilkins ; Leroy Schulte V. ; Denzel Gleason ; Frank Romo ; Rashmi Sadler ; Doc Ramirez Other Interventions: Discharge Summary Assessment (RN) Last Done: 09/30/20 14:16 Coding Level of Care Code D/C Day Management >30 mins Diagnoses Acute blood loss anemia D62 Acute respiratory failure with hypoxia J96.01 Acute on chronic diastolic (congestive) heart failure I50.33 Atrial fibrillation I48.91 Leiomyosarcoma C49.9 Pancytopenia D61.818 Hypertension I10 Peripheral neuropathy due to chemotherapy G62.0; T45.1X5A UTI (urinary tract infection) N39.0 Hospice care Z51.5
[2020-09-30 14:24] VITALS: BP 130/81
[2020-09-30 15:11] LABS: Appearance Urine Clear (Clear); Bacteria Urine Automated 4+ (Negative); Bilirubin Urine Negative (Negative); Blood Urine 1+ (Negative); Color Urine Yellow; Glucose Urine UA Negative (Negative); Ketones Urine Negative (Negative); Leukocyte Esterase Urine 1+ (Negative); Nitrite Urine Negative (Negative); Protein Urine Negative (Negative); RBC Urine Automated 0-4 /hpf (0-4); Specific Gravity Urine 1.011 (1.000-1.030); Urobilinogen Urine Negative (Negative); WBC Urine Automated >30 /hpf (0-5)
== END 2020-09-30 15:38 | disposition hospice, home (50) | DRG 808 ==
LOC: ED 17:28 → 2N 19:22 → SUATTDRO 19:22 → 2N 19:58 → 1E 09-26 09:33 → 2W 09-28 07:49
DX: E87.6 Hypokalemia; R04.0 Epistaxis; Z66 Do not resuscitate; I50.33 Acute on chronic diastolic (congestive) heart failure; C49.9 Malignant neoplasm of connective and soft tissue, unspecified; G62.0 Drug-induced polyneuropathy; C78.00 Secondary malignant neoplasm of unspecified lung; I44.7 Left bundle-branch block, unspecified; I31.3 Pericardial effusion (noninflammatory); T45.1X5A Adverse effect of antineoplastic and immunosuppressive drugs, initial encounter; Z51.5 Encounter for palliative care; C79.31 Secondary malignant neoplasm of brain; I11.0 Hypertensive heart disease with heart failure; R63.0 Anorexia; K92.2 Gastrointestinal hemorrhage, unspecified; R64 Cachexia; C78.89 Secondary malignant neoplasm of other digestive organs; E78.00 Pure hypercholesterolemia, unspecified; K92.0 Hematemesis; E88.09 Other disorders of plasma-protein metabolism, not elsewhere classified; D62 Acute posthemorrhagic anemia; E87.1 Hypo-osmolality and hyponatremia; I48.91 Unspecified atrial fibrillation; J96.01 Acute respiratory failure with hypoxia; K13.79 Other lesions of oral mucosa; D61.810 Antineoplastic chemotherapy induced pancytopenia

== ENCOUNTER 2020-11-29 16:57 | Observation (INO) ==
[2020-11-29] MEDS ORDERED: SODIUM CHLORIDE 0.9% 250 ML IV PRN ×2 (17:28→20:45)
--- NOTE | 2020-11-29 17:42 | Emergency Department Note ---
Impression & Plan Weakness, Anemia, Hospice care, Tachycardia ED Provider Note NAME: MARIA DE JESUS DUTTA AGE: 75 SEX: F : 1945 ARRIVES VIA: Walk-In INFORMANT: [Patient][family] ED PROVIDER(S): [Ciro Chris MD] CHIEF COMPLAINT: Abnormal labs HISTORY OF PRESENT ILLNESS: The patient is a 75-year-old female who is on hospice. She has a history of anemia. She was in the hospital few months ago for anemia and received around 3 units of blood plus some platelets and FFP. The patient states that recently, she has felt exhausted, tired and weak. There has been no bloody or black stool, no bloody vomitus. She had lab work done today showing a hemoglobin of 5.4. She presents to the ER for hospitalization/transfusion. Patient's laboratory work from earlier today showed a white count of 2.4 and a platelet count of 169. Her potassium was 3. Sodium was 129. Her creatinine was normal and her LFTs were essentially unremarkable. The patient denies any fever or increased cough. She has had no increased chest pain, she has baseline chest discomfort because of tumors in her lungs. She has not had any abdominal discomfort. She has noticed that she is quite pale when she looks in the mirror. REVIEW OF SYSTEMS: See HPI for pertinent positives and negatives. A total of ten systems were reviewed and were otherwise negative. PMHx/PSHx: See Below SOCIAL HISTORY: See Below. PHYSICAL EXAM: GENERAL: Patient is in no acute distress. HEENT: No acute trauma, normocephalic atraumatic, mucous membranes moist, no nasal congestion, no scleral icterus. NECK: No stridor, no adenopathy, no meningismus, trachea is midline. LUNGS: Clear to auscultation bilaterally, no wheeze, no rhonchi, breath sounds equal. HEART: Tachycardic with an irregular rhythm, there is a 2/6 systolic murmur. ABDOMEN: Soft, nontender, bowel sounds positive, no hernias, no peritonitis. EXTREMITIES: No cyanosis or edema, full range of motion of all the joints without pain or difficulty, no signs for acute trauma. NEUROLOGIC: Oriented x 3, no acute motor or sensory deficits, no focal weakness. SKIN: No rash, no jaundice, no diaphoresis. Pale. DIFFERENTIAL DIAGNOSIS: Infection, dehydration, metabolic abnormality, hypo/hyperglycemia, electrolyte disturbance, anemia, hypoxia, cardiac sources, intracerebral event, toxicologic issues, stroke, TIA, as well as other pathologies. EMERGENCY DEPARTMENT COURSE/PROCEDURES: ECG: Indication was weakness. The ECG shows a sinus tachycardia with frequent PACs. The rate is 102. There is no ST elevation. There is poor R wave progression and a potential old anteroseptal infarct. QTC is 484. Compared to an ECG from 26 September 2020, the rate has increased. Continuous Cardiac Monitoring: An order was placed for continuous cardiac monitoring. The monitor shows a rate of 118 with sinus tachycardia with PACs. Critical Care Note: I have personally spent 39 minutes of critical care time in the direct management of this patient. This includes bedside care, interpretation of diagnostic studies, and testing, discussion with consultants, patient, and family members, and other required patient management activities. This 39 minutes is in excess of all separately billable procedures. MEDICAL DECISION MAKING: Patient presents with weakness and fatigue. She was quite pale. She had had a low hemoglobin on outpatient testing. I did review the patient's outpatient laboratories. Her white count was 5.4. Hemoglobin quite low at 5.4. There was a normal platelet count. Sodium was 129. Potassium a little bit low at 3.0. There was a normal creatinine. Calcium slightly low at 8.1. No concerning liver enzyme elevation. Here in the ED, an ECG was performed. This showed a sinus tachycardia with frequent PACs. Cardiac enzyme testing x1 is not suggestive of acute cardiac injury. Magnesium was normal. Chest film showed improvement in her lung congestion. Her effusions were unchanged. No heart failure findings. The patient was quite pale on exam. She was not hypotensive. She was awake and interactive. She did consent to a blood transfusion. The paperwork was completed and signed. I ordered for 1 unit of packed red blood cells to be transfused while here in the ED, I suspect she will require 2 to 3 units. Her blood will need to be given slowly and I suspect she will require diuresis between the units as she has had fluid overload issues previously with transfusions. The patient requires a hospital stay for her transfusions. I did speak with case management, the on-call hospitalist was consulted. 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 Syncope Surgical History H/O colonoscopy H/O dilation and curettage H/O hysterectomy with oophorectomy H/O oophorectomy H/O oral surgery H/O: hysterectomy History of back surgery History of cataract surgery History of shoulder surgery History of sinus surgery Hx of appendectomy Hx of tonsillectomy Status post cryoablation Buttocks Family History Mother Lymphoma Father Alzheimer disease Unknown Uterine cancer Grandfather (Maternal) Myocardial infarction Denies family history of Ovarian cancer Prostate cancer Breast cancer Colorectal cancer Social History Smoking Status: Never smoker Second Hand Exposure: No; Hx Alcohol Use: No Hx Substance Use: No Preferred Language: Lithuanian Communication Ability: Effective Hearing Ability: Use of Hearing Aid Nursery Attendant Required: No Beliefs That Will Affect Care: None marital status: Current Living Situation: Spouse current occupational status: retired How many Children do You have: 2 Feels Safe at Home: Yes Dental Care, Regularly: Yes Physical Activity Frequency: 1-2 Times per Week Physical Activity Frequency Comment: swimming and walking Seatbelt Use: always Sunscreen Use: Yes (sometimes) Assistive Devices: Glasses, Oxygen - Continuous and Walker Allergies Allergies Allergy/AdvReac Type Severity Reaction Status Date / Time selina Allergy Intermediate HIVES Verified 11/29/20 18:23 Sulfa (Sulfonamide Allergy Intermediate HIVES Verified 11/29/20 18:23 Antibiotics) Home Meds Home Medications Medication Instructions Recorded Confirmed cyclosporine 0.05 % eye drops in a 1 drops OPB Q12H 06/30/18 11/29/20 dropperette polyethylene glycol 3350 [Miralax] 17 g PO DAILY PRN 07/17/20 11/29/20 fentanyl 12 mcg/hr transdermal 1 patch TRANSDERMAL Q72H 09/12/20 11/29/20 patch gabapentin 400 mg PO QID 09/25/20 11/29/20 docusate sodium [Stool Softener] 100 mg PO BID 11/29/20 11/29/20 metoprolol succinate [Toprol XL] 50 mg PO QPM 11/29/20 11/29/20 montelukast 10 mg PO QPM 11/29/20 11/29/20 prochlorperazine maleate 10 mg PO Q6H PRN 11/29/20 11/29/20 sertraline 50 mg PO QAM 11/29/20 11/29/20 Results & Data (ED) Vital Signs Vital Signs - 24 hr 11/29/20 17:03 11/29/20 17:20 Temperature 36.6 C 36.8 C Temperature Source Temporal Artery Scan Oral Pulse Rate 120 H Respiratory Rate 18 20 Respiratory Effort / Characteristics Non-Labored Respiratory Depth Normal Blood Pressure 122/60 Blood Pressure [Right Arm] 127/71 Blood Pressure Mean 80 Blood Pressure Mean [Right Arm] 89 Blood Pressure Position [Right Arm] Sitting Pulse Oximetry 97 98 Oxygen Delivery Method Room Air Room Air Sepsis Recent Fever Within 48 Hours No Sepsis New/Unexplained Change in Mental Status N/A Sepsis Action Taken by Nursing No Action Required Laboratory Data Lab Results 11/29/20 11/29/20 11/29/20 Range/Units 15:55 17:32 18:34 Magnesium 1.9 (1.8-2.4) mg/dl Iron 10 L (35-150) mcg/dl Transferrin 259 (200-360) mg/dl Transferrin % Sat 3 L (15-50) % Troponin I 0.037 (0-0.045) ng/ml COVID-19 Eval [facility] Type O Positive Antibody Screen NEGATIVE Crossmatch See Detail Imaging Data Radiologist's Impression: Chest X-Ray 11/29/20 17:28 SINGLE VIEW CHEST CLINICAL HISTORY: Dyspnea. FINDINGS: An AP, portable, upright chest radiograph is compared to study dated 09/27/2020 and correlated with chest CT dated 08/22/2020. A right subclavian central venous infusion port is in place. The heart is enlarged noting atherosclerotic calcification of the thoracic aorta. The pulmonary vasculature is noncongested. There are small pleural effusions with bibasilar atelectasis. Numerous pulmonary nodules are consistent with metastatic disease and not appreciably changed as compared to 09/27/2020. The largest lesion in the left upper lobe measures 2.6 cm. Foci of parenchymal scarring are again seen throughout both lungs, with fibrotic change again noted in the left midlung. There is no evidence of superimposed airspace consolidation to suggest pneumonia. No pneumothorax is seen. The skeletal structures are osteopenic. The bony thorax is grossly intact. IMPRESSION: 1. Cardiomegaly without radiographic evidence of congestive failure. 2. Chronic parenchymal changes and findings of multifocal pulmonary metastatic disease are similar to previous. 3. Small pleural effusions with bibasilar atelectasis are also not significantly changed. ACT 112: Negative or not required by law. Electronically signed by: Ciro Almodovar M.D. 11/29/2020 6:26 PM Discharge Plan Visit Data Chief Complaint: Abnormal Labs/Diagnostic Testing Stated Complaint: ABNORMAL LAB WORK; HEMOGLOBIN DOWN, DOC REF ED Provider: Ciro Chris Discharge Problem: Weakness, Anemia, Hospice care, Tachycardia Patient Disposition: Admitted As Inpatient Condition: Serious Forms Stand Alone Forms: My [facility] TweetUp Prescriptions Prescriptions: No Action cyclosporine [Restasis] 0.05 % dropperette 1 drops OPB Q12H RF: 0 fentanyl 12 mcg/hr patch 72 hour 1 patch transdermal Q72H RF: 0 polyethylene glycol 3350 [Miralax] 17 gram Powder In Packet 17 g PO DAILY PRN (Reason: Constipation) RF: 0 gabapentin 400 mg Capsule 400 mg PO QID RF: 0 montelukast 10 mg tablet 10 mg PO QPM RF: 0 metoprolol succinate [Toprol XL] 50 mg tablet extended release 24 hr 50 mg PO QPM RF: 0 sertraline 50 mg tablet 50 mg PO QAM RF: 0 prochlorperazine maleate 10 mg tablet 10 mg PO Q6H PRN (Reason: Nausea) RF: 0 docusate sodium [Stool Softener] 100 mg Capsule 100 mg PO BID RF: 0 Referrals Referrals: Janelle Lima MD [Primary Care Provider] - Discharge Problem: Anemia Qualifiers: Anemia type: unspecified type Qualified Code(s): D64.9 - Anemia, unspecified
--- NOTE | 2020-11-29 18:06 | History & Physical Report ---
Date of Service November 29, 2020 Assessment & Plan (1) Symptomatic anemia: Suspect secondary to GI bleed hence why it has occurred again without chemotherapy. Based on symptoms suspect slow bleed over the course of a few weeks Transfuse 2 units and repeat H&H. Lasix 10 mg IV with second unit. Repeat Hgb following this and transfuse if < 7 or symptomatic Monitor closely for worsening shortness of breath since patient developed acute CHF during her last hospitalization. (2) GI bleed: Pantoprazole IV bolus and drip Patient on hospice and declining any EGD intervention at this time therefore will defer GI consult (3) Microcytic anemia: Transferrin sats 3% also suggests GI bleed as above. Consider routine labs (4) Hypokalemia: 20 meq IV KCl given to allow use of lasix Currently appears hypovolemic on exam which would fit with blood loss therefore will defer lasix with initial unit given hypokalemia and hypovolemia (5) Hyponatremia: Suspect from dehydration, hypovolemic on exam and from history. Careful diuresis in setting of need to balance respiratory status with high likelihood of pulmonary with blood transfusions and intravascular depletion. Possible SIADH could be evaluate if needed but given hospice care will defer any further extensive workup on admission (6) Hospice care: Patient will be brought in under observation status to remain on hospice care if possible. (7) Uterine cancer: Metastatin uterine leiomyosarcoma - no disease specific treatment for this, on hospice care for symptomatic treatment Admission and Anticipated Discharge Date Admission Date: November 29, 2020 History of Present Illness Chief Complaint: Abnormal outpatient labs Primary Care Provider: Janelle Lima MD Rosio White is a 75-year-old female on hospice care for metastatic uterine leiomyosarcoma who presents to the ER with abnormal outpatient labs. Hemoglobin 5.4 from prior discharge hemoglobin 9.0 on discharge from prior hospitalization for anemia on Sep 30. She was hospitalized from September 25 to Sep 30 due to pancytopenia suspected due to chemotherapy but also had epistaxis and bleeding gums at that time. The patient does note vomiting up a few clots in the last week and mild bleeding from gums but nothing to explain her large drop in hemoglobin. She reports symptoms of fatigue, shortness of breath and dizziness getting worse progressively over the last 2 weeks. During her last hospitalization she developed acute CHF related to x4 units of platelets, 2 units FFP and 3 units pRBCs. In the ER she has been ordered 1 units packed RBCs. Of note anterior nasal swab taken for COVID-19 due to low likelihood and need to avoid epistaxis. She was referred to medicine for admission and ongoing management or anemia and weakness. Allergies Allergy/AdvReac Type Severity Reaction Status Date / Time selina Allergy Intermediate HIVES Verified 11/29/20 18:23 Sulfa (Sulfonamide Allergy Intermediate HIVES Verified 11/29/20 18:23 Antibiotics) Home Medications Medication Instructions Recorded Confirmed Type cyclosporine 0.05 % eye drops in a 1 drops OPB Q12H 06/30/18 11/29/20 History dropperette polyethylene glycol 3350 [Miralax] 17 g PO DAILY PRN 07/17/20 11/29/20 History fentanyl 12 mcg/hr transdermal 1 patch TRANSDERMAL Q72H 09/12/20 11/29/20 History patch gabapentin 400 mg PO QID 09/25/20 11/29/20 History docusate sodium [Stool Softener] 100 mg PO BID 11/29/20 11/29/20 History metoprolol succinate [Toprol XL] 50 mg PO QPM 11/29/20 11/29/20 History montelukast 10 mg PO QPM 11/29/20 11/29/20 History prochlorperazine maleate 10 mg PO Q6H PRN 11/29/20 11/29/20 History sertraline 50 mg PO QAM 11/29/20 11/29/20 History 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 Syncope Surgical History H/O colonoscopy H/O dilation and curettage H/O hysterectomy with oophorectomy H/O oophorectomy H/O oral surgery H/O: hysterectomy History of back surgery History of cataract surgery History of shoulder surgery History of sinus surgery Hx of appendectomy Hx of tonsillectomy Status post cryoablation Buttocks Family History Mother Lymphoma Father Alzheimer disease Unknown Uterine cancer Grandfather (Maternal) Myocardial infarction Denies family history of Ovarian cancer Prostate cancer Breast cancer Colorectal cancer Social History Smoking Status: Never smoker Second Hand Exposure: No; Hx Alcohol Use: No Hx Substance Use: No Preferred Language: Romanian Communication Ability: Effective Hearing Ability: Use of Hearing Aid Curtain Cleaner Required: No Beliefs That Will Affect Care: None marital status: Current Living Situation: Spouse current occupational status: retired How many Children do You have: 2 Other Information That Helps Us Care for You: No Feels Safe at Home: Yes Safety Concerns: Feels Safe At This Time Dental Care, Regularly: Yes Physical Activity Frequency: 1-2 Times per Week Physical Activity Frequency Comment: swimming and walking Seatbelt Use: always Sunscreen Use: Yes (sometimes) Assistive Devices: Glasses, Oxygen - Continuous and Walker Review of Systems Review of Systems: All systems reviewed & are unremarkable except as noted in HPI & below Physical Exam Constitutional: well developed, + cachectic and + frail appearing; no acute distress Eyes: + conjunctival abnormality (pale) Respiratory: normal respiratory effort and able to speak in complete sentences; no retractions and does not use accessory muscles Auscultation: + crackles (fine posteriorly); no wheezes Cardiovascular: Rate/Rhythm: regular rhythm and + tachycardic Heart Sounds: no murmur Extremities: normal capillary refill (4s centrally); no pedal edema Gastrointestinal (Abdomen): Percussion/Palpation: abdomen soft; abdomen nontender, no guarding and abdomen not rigid Skin: + pallor Neurologic: moves all extremities and awake; not confused Psychiatric: A+Ox3, euthymic affect Results & Data Results & Data ([facility]) Vital Signs (Past 12 Hours) Vital Signs Temp Pulse Resp BP BP Pulse Ox 11/29/20 17:20 36.8 C 20 127/71 98 11/29/20 17:03 36.6 C 120 H 18 122/60 97 Diagnostic Findings SINGLE VIEW CHEST IMPRESSION: 1. Cardiomegaly without radiographic evidence of congestive failure. 2. Chronic parenchymal changes and findings of multifocal pulmonary metastatic disease are similar to previous. 3. Small pleural effusions with bibasilar atelectasis are also not significantly changed. Medications Administered ER Medications Given: None ECG Indication: SOB/dyspnea Rate (beats per minute): 102 Rhythm: sinus tachycardia Findings: + other (premature supraventricular complexes) and + LBBB Comparison ECG Date: from (Sep 26, 2020) Change: the following changes noted (complete LBBB, likely rate related) Code Status & VTE Plan Code Status DNR/DNI VTE Prophylaxis Plan VTE Prophylaxis will be ordered: No Reason for no VTE drug order: Contraindicated Reason for no VTE mechanical prophylaxis: Treatment not indicated PG Care Time/CCT Total # of Minutes Spent Total Time Spent with Patient: Total time spent is greater than 50% in coordination of care (as documented) at patient's floor/unit and/or counseling patient: Coding Level of Care Code 63582 OBS Care - Level 3 Diagnoses Symptomatic anemia D64.9 GI bleed K92.2 GI bleed type/associated pathology: unspecified gastrointestinal hemorrhage type Microcytic anemia D50.9 Hypokalemia E87.6 Hyponatremia E87.1 Hospice care Z51.5 Uterine cancer C55 (1) GI bleed GI bleed type/associated pathology: unspecified gastrointestinal hemorrhage type Qualified Code(s): K92.2 - Gastrointestinal hemorrhage, unspecified
[2020-11-29 18:08] LABS: Magnesium 1.9 mg/dl (1.8-2.4); Troponin I 0.037 ng/ml (0-0.045)
[2020-11-29] MEDS ORDERED: PANTOPRAZOLE BOLUS/DRIP 1 EA IV STA (18:11)
[2020-11-29] MEDS ORDERED: PANTOprazole 80 MG in DEXTROSE 5% 100 ML IV STA (18:22)
--- NOTE | 2020-11-29 18:27 | XRay Report ---
SINGLE VIEW CHEST CLINICAL HISTORY: Dyspnea. FINDINGS: An AP, portable, upright chest radiograph is compared to study dated 09/27/2020 and correlat ed with chest CT dated 08/22/2020. A right subclavian central venous infusion port is in place. The h eart is enlarged noting atherosclerotic calcification of the thoracic aorta. The pulmonary vasculatur e is noncongested. There are small pleural effusions with bibasilar atelectasis. Numerous pulmonary n odules are consistent with metastatic disease and not appreciably changed as compared to 09/27/2020. T he largest lesion in the left upper lobe measures 2.6 cm. Foci of parenchymal scarring are again seen throughout both lungs, with fibrotic change again noted in the left midlung. There is no evidence of superimposed airspace consolidation to suggest pneumonia. No pneumothorax is seen. The skeletal stru ctures are osteopenic. The bony thorax is grossly intact. IMPRESSION: 1. Cardiomegaly without radiographic evidence of congestive failure. 2. Chronic parenchymal changes and findings of multifocal pulmonary metastatic disease are similar to previous. 3. Small pleural effusions with bibasilar atelectasis are also not significantly changed. ACT 112: Negative or not required by law. Electronically signed by: Ciro Almodovar M.D. 11/29/2020 6:26 PM
[2020-11-29] MEDS: POTASSIUM CHLORIDE / WTR 10 MEQ/100 ML PLCT IV SCH ×2 (19:28→22:34)
[2020-11-29] MEDS: PANTOprazole 40 MG in DEXTROSE 5% 100 ML IV SCH ×2 (19:28→23:14)
[2020-11-29] MEDS ORDERED: FUROSEMIDE 40 MG/4 ML VIAL IV PRN (20:45)
[2020-11-29] MEDS ORDERED: FUROSEMIDE 10 MG in SYRINGE 0 ML IV PRN (21:00)
[2020-11-29] MEDS ORDERED: METOPROLOL SUCC 50MG EXT REL TAB PO SCH (21:00)
[2020-11-29] MEDS: MONTELUKAST SODIUM 10 MG TABLET PO SCH (22:07)
[2020-11-29] MEDS: GABAPENTIN 400 MG CAP PO SCH (22:08)
[2020-11-29] MEDS: CHECK fentaNYL PATCH PLACEMENT SCH (23:14)
[2020-11-30] MEDS ORDERED: HEPARIN 100 UNIT/ML 5ML FLUSH FLUSH PRN (02:17)
[2020-11-30 04:27] LABS: Hematocrit (blood only) 24.8 % (37-47); Hemoglobin 7.9 g/dL (12.0-16.0); Mean Corpuscular Hemoglobin 25.2 pg (25-34); Mean Corpuscular Hgb Conc 31.9 g/dL (32-36); Platelet Count 143 K/uL (130-400); RDW Coefficient of Variation 21.5 % (11.5-14.5); RDW Standard Deviation 61.7 fL (36.4-46.3); Red Blood Count 3.14 M/uL (4.2-5.4); White Blood Count 5.94 K/uL (4.8-10.8)
[2020-11-30] MEDS: PANTOprazole 40 MG in DEXTROSE 5% 100 ML IV SCH ×4 (04:32→18:24)
[2020-11-30 04:54] LABS: BUN Creatinine Ratio 44.9 (10-20); Calcium 7.8 mg/dl (8.5-10.1); Creatinine Clr Calc Pharmacy 105.6 ml/min; Est GFR (Non-African American) 96.7; Potassium 3.2 mmol/L (3.5-5.1)
[2020-11-30] MEDS ORDERED: POTASSIUM CHLORIDE CRTAB 20 MEQ TABCR PO STA (05:14)
--- NOTE | 2020-11-30 07:12 | XRay Report ---
XR chest 1V portable CLINICAL HISTORY: Shortness of breath. New onset crackles. COMPARISON STUDY: 11/29/2020 FINDINGS: There is a right-sided A-Port catheter present. There are multiple bilateral pulmonary nodu les. The left upper lung zone pulmonary nodule continues to measure 26 mm. The heart is enlarged. The re are bilateral pleural effusions with associated bibasilar opacities. There is slight elevation of interstitium and an element of mild pulmonary vascular congestion cannot be excluded[ IMPRESSION: 1. Persistent cardiomegaly 2. Multiple bilateral pulmonary nodules consistent with metastatic disease 3. Small bilateral pleural effusions with associated basilar atelectasis/consolidation 4. Mild elevation of the interstitium. An element of mild pulmonary vascular congestion cannot be exc luded ACT 112: Negative or not required by law. Electronically signed by: Americo Amaya M.D. 11/30/2020 7:11 AM
[2020-11-30] MEDS: GABAPENTIN 400 MG CAP PO SCH ×4 (08:09→20:48)
[2020-11-30] MEDS: CHECK fentaNYL PATCH PLACEMENT SCH ×2 (08:10→16:33)
--- NOTE | 2020-11-30 08:59 | Electrocardiogram Report ---
Test Reason : Blood Pressure : / mmHG Vent. Rate : 102 BPM Atrial Rate : 102 BPM P-R Int : 144 ms QRS Dur : 120 ms QT Int : 372 ms P-R-T Axes : 071 -06 113 degrees QTc Int : 484 ms Sinus tachycardia with Premature supraventricular complexes Left bundle branch block Abnormal ECG When compared with ECG of 26-SEP-2020 15:16, Complete Left bundle branch block now present Confirmed by Gary Pittman ([id number]) on 11/30/2020 8:58:57 AM Referred By: REFERRED SELF Confirmed By:Gary Pittman
[2020-11-30] MEDS: POTASSIUM CHLORIDE CRTAB 20 MEQ TABCR PO SCH ×3 (10:09→20:48)
[2020-11-30] MEDS ORDERED: METOPROLOL SUCC 50MG EXT REL TAB PO STA (11:45)
[2020-11-30] MEDS ORDERED: FUROSEMIDE 20 MG in SYRINGE 0 ML IV ONE (12:30)
--- NOTE | 2020-11-30 12:32 | Hospitalist Progress Note ---
Date of Service November 30, 2020 Assessment & Plan (1) Acute respiratory failure with hypoxia: likely 2nd to pulmonary mets from uterine cancer, pulmonary edema/pleural effusions. can't rule out PEs but given hospice status will not pursue w/u for such. for volume overload - lasix 20mg IV x 1 now. re-eval volume status in am. continue NC O2 - given hospice status will send home with such regardless of O2 sats to help treat dyspnea. (2) Volume overload: 2nd to PRBCs infusion; can't rule out pre-existing pleural effusions from cancer. can't rule out element of diastolic CHF. either way - lasix 20mg IV x 1 now. control her tachycardia better - see below. (3) Symptomatic anemia: s/p 2 units PRBCs. Hb 7.9 today. Baseline Hb 8-9. Most of her baseline anemia is likely from her cancer itself. No overt GI bleeding but certainly possible she is having slow, occult bleeding. repeat H/H am. (4) GI bleed: question of. no overt bleeding however. stop PPI IV drip. change to PPI - protonix 40mg PO BID starting tonight. H/H am. patient declining endoscopy in light of hospice status. (5) Microcytic anemia: transferrin sat <10%. suggests Fe def. follow. (6) Hypokalemia: replace repeat BMP/mag am (7) Hyponatremia: likely multifactorial including element of SIADH repeat BMP am (8) Hospice care: patient confirmed with me today she wishes to resume hospice services at home upon discharge (9) Uterine cancer: stage 4 uterine leiomyosarcoma progressive, extensive resume hospice upon discharge (10) Severe protein-calorie malnutrition: 10kg weight loss since 08/2020 due to stage 4 cancer (11) Tachycardia: a.fib vs sinus tach with ectopy either way -- increase toprol xl to 50mg BID (12) LBBB (left bundle branch block): no particular Rx will update family this evening Admission and Anticipated Discharge Date Admission Date: November 29, 2020 Subjective tele overnight- rapid a.fib vs sinus tach w/ frequent ectopy. tachycardia into the 140-150 range at times. patient reading a book on her tablet upon entering the room. several complaints including mouth sores (chronic), dyspnea with little exertion, mild orthopnea. no chest pain or cough. reports poor appetite and recent weight loss (10kg since August 2020). denies overt melena or BRBPR. Review of Systems Constitutional: + fatigue, + weakness, + anorexia and + weight loss Ear, Nose, Mouth, Throat: + mouth lesions Respiratory: + dyspnea and + dyspnea on exertion Cardiovascular: + edema; no chest pain Gastrointestinal: + nausea; no abdominal pain Physical Exam Constitutional: + ill appearing and + thin; no acute distress and no altered mental status ENMT: Mouth: + tongue abnormality (ulceration left side of tongue ) Respiratory: no respiratory distress Auscultation: + diminished lung sounds (bases) and + crackles (bases); no wheezes Cardiovascular: Rate/Rhythm: + tachycardic and + irregularly irregular Heart Sounds: normal S1 and normal S2; no murmur Vessels: + JVD, posterior tibial pulses present and dorsalis pedis pulses present Gastrointestinal (Abdomen): normal bowel sounds, soft, nontender, no hepatosplenomegaly Skin: + pallor Psychiatric: Orientation: alert and oriented x 3 Results & Data Results & Data ([facility]) Vital Signs (Past 12 Hours) Vital Signs Temp Pulse Pulse Resp BP BP Pulse Ox 11/30/20 11:07 36.5 C 112 H 19 132/77 99 11/30/20 07:07 36.8 C 113 H 18 128/76 98 11/30/20 03:00 37.0 C 108 H 16 148/86 H 99 11/30/20 02:30 36.9 C 118 H 24 150/74 H 95 11/30/20 02:10 37.0 C 121 H 18 136/79 95 11/30/20 01:10 37.1 C 122 H 22 131/79 95 11/30/20 00:38 106 H Laboratory Results Laboratory Results - last 24 hr 11/29/20 11/29/20 11/29/20 15:55 17:32 18:34 WBC RBC Hgb Hct MCV MCH MCHC RDW Std Deviation RDW Coeff of Zhao Plt Count MPV Sodium Potassium Chloride Carbon Dioxide Anion Gap BUN Creatinine Est Cr Clr Drug Dosing Est GFR ( Amer) Est GFR (Non-Af Amer) BUN/Creatinine Ratio Glucose Calcium Magnesium 1.9 Iron 10 L Transferrin 259 Transferrin % Sat 3 L Troponin I 0.037 COVID-19 Eval [facility] SARS-CoV-2, RNA, NAAT Blood Type O Positive Antibody Screen NEGATIVE Crossmatch See Detail 11/29/20 11/30/20 11/30/20 18:34 04:07 04:07 WBC 5.94 RBC 3.14 L Hgb 7.9 L Hct 24.8 L MCV 79.0 L MCH 25.2 MCHC 31.9 L RDW Std Deviation 61.7 H RDW Coeff of Zhao 21.5 H Plt Count 143 MPV 9.0 Sodium 130 L Potassium 3.2 L Chloride 95 L Carbon Dioxide 21 Anion Gap 14.0 H BUN 20 H Creatinine 0.45 L Est Cr Clr Drug Dosing 105.6 Est GFR ( Amer) 112.0 Est GFR (Non-Af Amer) 96.7 BUN/Creatinine Ratio 44.9 H Glucose 112 H Calcium 7.8 L Magnesium Iron Transferrin Transferrin % Sat Troponin I COVID-19 Eval Order SARS-CoV-2, RNA, NAAT NEGATIVE Blood Type Antibody Screen Crossmatch Diagnostic Findings Chest X-Ray 11/30/20 02:44 XR chest 1V portable CLINICAL HISTORY: Shortness of breath. New onset crackles. COMPARISON STUDY: 11/29/2020 FINDINGS: There is a right-sided A-Port catheter present. There are multiple bilateral pulmonary nodules. The left upper lung zone pulmonary nodule continues to measure 26 mm. The heart is enlarged. There are bilateral pleural effusions with associated bibasilar opacities. There is slight elevation of interstitium and an element of mild pulmonary vascular congestion cannot be excluded[ IMPRESSION: 1. Persistent cardiomegaly 2. Multiple bilateral pulmonary nodules consistent with metastatic disease 3. Small bilateral pleural effusions with associated basilar atelectasis/consolidation 4. Mild elevation of the interstitium. An element of mild pulmonary vascular congestion cannot be excluded ACT 112: Negative or not required by law. Electronically signed by: Americo Amaya M.D. 11/30/2020 7:11 AM PG Care Time/CCT Total # of Minutes Spent Total Time Spent with Patient: Total time spent is greater than 50% in coordination of care (as documented) at patient's floor/unit and/or counseling patient: Coding Level of Care Code 00082 Subseq Obs Care Lvl 3 Diagnoses Acute respiratory failure with hypoxia J96.01 Volume overload E87.70 Symptomatic anemia D64.9 GI bleed K92.2 GI bleed type/associated pathology: unspecified gastrointestinal hemorrhage type Microcytic anemia D50.9 Hypokalemia E87.6 Hyponatremia E87.1 Hospice care Z51.5 Uterine cancer C55 Severe protein-calorie malnutrition E43 Tachycardia R00.0 LBBB (left bundle branch block) I44.7 (1) GI bleed GI bleed type/associated pathology: unspecified gastrointestinal hemorrhage type Qualified Code(s): K92.2 - Gastrointestinal hemorrhage, unspecified
[2020-11-30] MEDS ORDERED: HYDROmorphone/NSS 100 MG/100 ML BAG IV SCH (19:15)
[2020-11-30] MEDS: MONTELUKAST SODIUM 10 MG TABLET PO SCH (20:48)
[2020-11-30] MEDS: PANTOprazole 40 MG TAB PO SCH (20:52)
[2020-11-30] MEDS: METOPROLOL SUCC 25MG EXT REL TAB PO SCH (20:52)
[2020-11-30] MEDS ORDERED: METOPROLOL SUCC 50MG EXT REL TAB PO SCH (21:00)
[2020-12-01] MEDS: CHECK fentaNYL PATCH PLACEMENT SCH ×2 (01:15→08:00)
[2020-12-01 06:30] LABS: Hematocrit (blood only) 25.4 % (37-47)
[2020-12-01 07:12] LABS: BUN Creatinine Ratio 43.3 (10-20); Calcium 7.8 mg/dl (8.5-10.1); Est GFR (African American) 109.7; Est GFR (Non-African American) 94.6; Magnesium 2.1 mg/dl (1.8-2.4); Potassium 4.2 mmol/L (3.5-5.1)
[2020-12-01] MEDS: PANTOprazole 40 MG TAB PO SCH (08:01)
[2020-12-01] MEDS: METOPROLOL SUCC 25MG EXT REL TAB PO SCH (08:01)
[2020-12-01] MEDS: GABAPENTIN 400 MG CAP PO SCH (08:02)
[2020-12-01] MEDS: POTASSIUM CHLORIDE CRTAB 20 MEQ TABCR PO SCH (08:02)
[2020-12-01] MEDS ORDERED: FUROSEMIDE 20 MG in SYRINGE 0 ML IV ONE (08:45)
[2020-12-01] MEDS ORDERED: fentaNYL 12 MCG/HR TDSY TD SCH (09:00)
--- NOTE | 2020-12-01 13:34 | Discharge Summary ---
Date of Service date of admission - November 29, 2020 date of discharge - December 01, 2020 Admission HPI Per Admitting Provider Rosio White is a 75-year-old female on hospice care for metastatic uterine leiomyosarcoma who presents to the ER with abnormal outpatient labs. Hemoglobin 5.4 from prior discharge hemoglobin 9.0 on discharge from prior hospitalization for anemia on Sep 30. She was hospitalized from September 25 to Sep 30 due to pancytopenia suspected due to chemotherapy but also had epistaxis and bleeding gums at that time. The patient does note vomiting up a few clots in the last week and mild bleeding from gums but nothing to explain her large drop in hemoglobin. She reports symptoms of fatigue, shortness of breath and dizziness getting worse progressively over the last 2 weeks. During her last hospitalization she developed acute CHF related to x4 units of platelets, 2 units FFP and 3 units pRBCs. In the ER she has been ordered 1 units packed RBCs. Of note anterior nasal swab taken for COVID-19 due to low likelihood and need to avoid epistaxis. She was referred to medicine for admission and ongoing management or anemia and weakness. Principal Diagnosis 1. acute hypoxic respiratory failure 2. acute on chronic anemia Discharge Exam Constitutional + ill appearing and + thin; no acute distress and no altered mental status ENMT Mouth: + tongue abnormality (ulceration left side of tongue ) Respiratory no respiratory distress Auscultation: + diminished lung sounds (bases) and + crackles (bases, but improved ); no wheezes Cardiovascular Rate/Rhythm: regular rate and + irregularly irregular Heart Sounds: normal S1 and normal S2; no murmur Vessels: posterior tibial pulses present and dorsalis pedis pulses present; no JVD Gastrointestinal (Abdomen) normal bowel sounds, soft, nontender, no hepatosplenomegaly Skin + pallor Psychiatric Orientation: alert and oriented x 3 Discharge Data Allergies Allergy/AdvReac Type Severity Reaction Status Date / Time selina Allergy Intermediate HIVES Verified 11/29/20 18:23 Sulfa (Sulfonamide Allergy Intermediate HIVES Verified 11/29/20 18:23 Antibiotics) Procedures Performed PRBCs x 2 units Ordered Studies cxr: IMPRESSION: 1. Persistent cardiomegaly 2. Multiple bilateral pulmonary nodules consistent with metastatic disease 3. Small bilateral pleural effusions with associated basilar atelectasis/cons olidation 4. Mild elevation of the interstitium. An element of mild pulmonary vascular congestion cannot be excluded Hospital Course (1) Hospice care: patient confirmed with staff and the medical team that she wished to resume hospice services at home upon discharge (2) Acute respiratory failure with hypoxia: Likely 2nd to pulmonary mets from uterine cancer and pulmonary edema/pleural effusions. Can't rule out PEs but given hospice status we did not pursue work-up for such. Received lasix several times during her stay with improved pulmonary symptoms and respiratory status. At discharge she will continue NC O2 to help treat dyspnea. (3) Volume overload: Pulmonary edema. 2nd to PRBCs infusion; can't rule out pre-existing pleural effusions from cancer. Can't rule out element of diastolic CHF. Improved with IV diuresis. At discharge she will take oral lasix on prn basis. (4) Symptomatic anemia: s/p 2 units PRBCs. Presenting Hb was 5.4 Discharge Hb was 8. Baseline Hb 8-9. Most of her baseline anemia is likely from her cancer itself. No overt GI bleeding, but certainly possible she is having slow, occult bleeding. Either way no work-up is being pursued given her hospice status; she also voiced she did NOT want testing. (5) GI bleed: Question of. No overt bleeding seen during her stay. Prior to admission had been taking a large amount of motrin due to pain thus occult blood loss was possible. Placed on protonix 40mg PO BID. Patient declining endoscopy in light of hospice status. (6) Microcytic anemia: transferrin sat <10%. suggests Fe def. would not pursue any treatment. (7) Hypokalemia: replaced (8) Hyponatremia: likely multifactorial including element of SIADH Na 129 on day of discharge (9) Uterine cancer: stage 4 uterine leiomyosarcoma progressive, extensive resume hospice upon discharge (10) Severe protein-calorie malnutrition: 10kg weight loss since 08/2020 due to stage 4 cancer (11) Tachycardia: a.fib vs sinus tach with ectopy either way -- increased toprol xl to 50mg BID as a palliative measure (12) LBBB (left bundle branch block): Total Time Total Time Spent Total Time Spent (In Minutes): 45 Total Time Includes: Examination of the Patient, Discharge Planning, Medication Reconciliation and Communication With Other Providers Discharge Plan Discharge Items Patient Disposition: Hospice - Home Reason For Visit: Symptomatic Anemia Discharge Diagnosis: 1. anemia with need for blood transfusion 2. fluid retention in the lungs - improved with diuretics (water pill) 3. uterine cancer Activity: As commented below Activity Comment: activity as tolerated & as desired Non-emergency contact: Primary Care Provider Call non-emergency contact if: you have any medication questions, your symptoms worsen, your pain is not controlled, your pain is worsening, your pain is unusual for you and your pain is concerning for you Follow-up/Referrals: Janelle Lima MD [Primary Care Provider] - 12/04/20 10:15 am Diet: Regular Addtl Attending Provider Instructions: Mrs White, Aramis were treated for the problems listed above in "discharge diagnoses." Your breathing improved with blood transfusion, diuretics, and an increase in your metoprolol. Oxygen also helped. Recommendations - 1. take furosemide 20mg daily Wednesday am, Wednesday am, and Wednesday am this week. Then, use on an as needed basis for water retention/fluid in your legs/difficulty breathing. 2. take potassium once daily Wednesday, Wednesday, and Wednesday of this week. Then, take it as needed when you take your furosemide. 3. take pantoprazole 40mg twice daily every day. 4. use oxygen 2 liters nasal cannula with sleep, naps, and especially when you leave your home. Or, you can wear it at all times if needed/desired. 5. increase your metoprolol to twice a day. For any needs, questions, concerns, problems, difficulty breathing - anything - please contact the Hospice agency first. They will be able to address most of your needs in the comfort of your home. Please have a blessed Easter and it was my pleasure to care for you! -Dr Michelle Pending Studies at Discharge: No Stand-Alone Forms: My [facility] Medications and DC Order Prescriptions: New pantoprazole 40 mg Tablet,Delayed Release (Dr/Ec) 40 mg PO BID Qty: 60 RF: 5 furosemide [Lasix] 20 mg tablet 20 mg PO DAILY PRN (Reason: edema/water retention) Qty: 30 RF: 0 potassium chloride 10 mEq capsule, extended release 10 meq PO DAILY PRN (Reason: when you take your furosemide water pill) Qty: 30 RF: 0 (DME) Oxygen Home Liters Per Minute See Rx Instructions .ROUTE .MEDSUPPLY Qty: 1 RF: 0 Continued cyclosporine [Restasis] 0.05 % dropperette 1 drops OPB Q12H RF: 0 fentanyl 12 mcg/hr patch 72 hour 1 patch transdermal Q72H RF: 0 polyethylene glycol 3350 [Miralax] 17 gram Powder In Packet 17 g PO DAILY PRN (Reason: Constipation) RF: 0 gabapentin 400 mg Capsule 400 mg PO QID RF: 0 montelukast 10 mg tablet 10 mg PO QPM RF: 0 sertraline 50 mg tablet 50 mg PO QAM RF: 0 prochlorperazine maleate 10 mg tablet 10 mg PO Q6H PRN (Reason: Nausea) RF: 0 docusate sodium [Stool Softener] 100 mg Capsule 100 mg PO BID RF: 0 Changed metoprolol succinate [Toprol XL] 50 mg tablet extended release 24 hr 50 mg PO BID Qty: 60 RF: 5 Discharge Orders: Discharge Order (Routine); Ordered 12/01/20 Ordered By: Arnulfo Michelle Admission Data Admit Date/Time: 11/29/20 18:47 Attending Provider: Arnulfo Michelle Admit Provider: Arnulfo Robertson Primary Care Provider: Janelle Lima V. Other Interventions: Discharge Summary Assessment (RN) Last Done: 12/01/20 13:45 Coding Level of Care Code 56882 OBS Care - Discharge Diagnoses Hospice care Z51.5 Acute respiratory failure with hypoxia J96.01 Volume overload E87.70 Symptomatic anemia D64.9 GI bleed K92.2 GI bleed type/associated pathology: unspecified gastrointestinal hemorr boris type Microcytic anemia D50.9 Hypokalemia E87.6 Hyponatremia E87.1 Uterine cancer C55 Severe protein-calorie malnutrition E43 Tachycardia R00.0 LBBB (left bundle branch block) I44.7
== END 2020-12-01 15:08 | disposition hospice, home (50) ==
LOC: ED 16:57 → 2S 16:57 → SUATTDRO 18:47 → 2S 20:24